=== PATIENT | male | born 1940 | race Caucasian/White ===

== ENCOUNTER 2016-08-31 23:26 | Inpatient (IN) | payer OTHER, MEDICARE ==
[~2016-08-31] VITALS: Ht 177.8 cm; Wt 81.6 kg
[~2016-08-31 23:26] MED LIST: APRESOLINE50 MG PO; AUGMENTIN 875 M1 TAB PO; CHILDREN'S ASPI81 M1 PO; CLEOCIN HCL300 M1 PO; COLACE100 M1 PO; CRESTOR40 M2 PO; DESYREL50 MG PO; FOLIC ACID0.8 M2 PO; HYDROXYZINE PAM25 MG PO; NAMENDA XR21 M1 PO; PERDIEM15 MG PO; PROZAC10 M1 PO; RENAL CAPS SOFTG1 MG PO; ROZEREM8 MG PO; TYLENOL EXTRA500 M2 PO; VITAMIN D31000 UNI2 PO; ZYPREXA2.5 MG PO
--- NOTE | 2016-08-31 23:41 | NUR ---
76yo MALE TO RM 2 VIA AMB FROM HOME WHERE FAMILY REPORTS DECREASED LOC TONITE. UPON ARRIVAL EYES CLOSED,NO SPEECH. FAMILY STATES "NON-PRODUCTIVE COUGH PRESENT"
--- NOTE | 2016-08-31 23:41 | NUR ---
2ND IV INSERTED. NS UP WO DR LAM AT BEDSIDE.
--- NOTE | 2016-08-31 23:47 | ED AMS/SEIZURE/WEAK/DIZZY ---
History of Present Illness General Chief Complaint: Altered Mental Status Stated Complaint: BIBA AMS Source: patient, family, old records Exam Limitations: clinical condition, dementia Vital Signs & Intake/Output Vital Signs & Intake/Output Vital Signs Date Time Temp Pulse Resp B/P Pulse O2 O2 Flow FiO2 Ox Delivery Rate 09/01 0127 97.9 72 20 168/77 97 Nasal 4.0L Cannula 09/01 0005 97.1 64 16 117/63 97 Nasal 2.0L Cannula 08/31 2353 64 16 82/40 98 Nasal 2.0L Cannula 08/31 2344 91 Room Air 08/31 2335 97.6 67 16 86/53 91 Room Air Room Air Allergies Coded Allergies: lisinopril (Severe, LIP/TONGUE SWELLING 02/18/16) Reconcile Medications Acetaminophen (Tylenol Xstr) 500 MG TAB 1 TAB PO BID PAIN (Reported) Aspirin (Children's Aspirin) 81 MG TAB.CHEW 1 TAB PO DAILY HEART (Reported) B COMPLEX & C NO.20/FOLIC ACID (Renal Caps Softgel) 1 MG CAPSULE 1 CAP PO DAILY VITAMIN (Reported) Cholecalciferol (Vitamin D3) 1,000 UNIT TABLET 1 TAB PO DAILY VITAMIN ( Reported) Clindamycin HCl (Cleocin HCl) 300 MG CAPSULE 1 CAP PO TID GUM BLEEDING Docusate Sodium (Colace) 100 MG CAPSULE 1 TAB PO DAILY STOOL (Reported) Fluoxetine HCl (Prozac) 10 MG CAPSULE 1 CAP PO QAM MENTAL HEALTH (Reported) Folic Acid 0.8 MG TAB 1 TAB PO DAILY VITAMIN (Reported) Memantine HCl (Namenda XR) 21 MG CAP.SPR.24 1 TAB PO DAILY MENTAL HEALTH ( Reported) Rosuvastatin Calcium (Crestor) 20 MG TABLET 40 MG PO DAILY CHOL (Reported) Trazodone Hydrochloride (Desyrel) 50 MG TAB 25 MG PO Q8 AGITATION Core Measure Meds Pre-Hospital aspirin Triage Note: 76yo MALE TO RM 2 VIA AMB FROM HOME WHERE FAMILY REPORTS DECREASED LOC TONITE. UPON ARRIVAL EYES CLOSED,NO SPEECH. FAMILY STATES "NON-PRODUCTIVE COUGH PRESENT" Triage Nurses Notes Reviewed? yes Onset: Just prior to arrival Duration: hour(s):, constant, continues in ED Timing: recent history Injury Environment: home Severity: severe No Modifying Factors: none HPI: Several hours prior to admission patient was noted to have decreasing level of consciousness interaction appetite. There is no fever chills nausea vomiting diarrhea abdominal pain chest pain shortness of breath headache dysuria rash bleeding reported. Past History Travel History Traveled to [place] past 21 day No Medical History Any Pertinent Medical History? 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 No Review of Systems Review of Systems Constitutional: Reports: see HPI, weakness. EENTM: Reports: no symptoms. Respiratory: Reports: no symptoms. Cardiovascular: Reports: no symptoms. GI: Reports: no symptoms. Genitourinary: Reports: no symptoms. Musculoskeletal: Reports: no symptoms. Skin: Reports: no symptoms. Neurological/Psychological: Reports: see HPI, weakness. Hematologic/Endocrine: Reports: no symptoms. Immunologic/Allergic: Reports: no symptoms. All Other Systems: Reviewed and Negative Physical Exam Physical Exam General Appearance: well developed/nourished, moderate distress, obese Head: atraumatic, normal appearance Eyes: Bilateral: normal appearance, PERRL, EOMI. 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 Skin: intact, normal color, warm/dry Lymphatic: no anterior cervical shukri Core Measures ACS in differential dx? Yes ASA ordered for poss ACS? taken SLINGER SEQUINS CVA/TIA Diagnosis: No Severe Sepsis Present: Yes BC x2: Yes Septic Shock Present: No Progress Differential Diagnosis: dehydration, electrolyte imbalance, hypoglycemia, hypoxia, pneumonia, sepsis Plan of Care: Orders Procedure Date/time Status Regular Diet 09/01 B Active LACTIC ACID 09/01 0238 Active Patient Data 09/01 012 Active Intake & Output 09/01 012 Active OXYGEN SETUP (GEN) 09/01 50 Active Saline Lock 09/01 50 Active Admit to inpatient 09/01 50 Active Vital Signs 09/01 50 Active Activity/Ambulation 09/01 50 Active Code Status 09/01 50 Active BLOOD CULTURE 08/31 2337 Active URINALYSIS 08/31 2337 Complete TROPONIN LEVEL 08/31 2337 Complete LACTIC ACID 08/31 2337 Complete COMPREHENSIVE METABOLIC PANEL 08/31 2337 Complete CBC WITHOUT DIFFERENTIAL 08/31 2337 Complete EKG 08/31 2332 Active Laboratory Tests 09/01/16 0020: Urinalysis LIGHT H, Urine Color YEL, Urine Clarity CLEAR, Urine pH 6.0, Ur Specific [place] 1.025, Urine Protein 30 H, Urine Ketones NEG, Urine Nitrite NEG, Urine Bilirubin NEG, Urine Urobilinogen 0.2, Ur Leukocyte Esterase NEG, Ur Microscopic SEDIMENT EXAMINED, Urine RBC RARE, Urine WBC 1-3 H, Urine Bacteria FEW H, Urine Hemoglobin NEG, Urine Glucose NEG 08/31/16 2340: Anion Gap 14, Estimated GFR 59 L, BUN/Creatinine Ratio 20.8, Glucose 142 H, Lactic Acid 2.1, Calcium 9.7, Total Bilirubin 0.5, AST 18, ALT 26, Alkaline Phosphatase 78, Troponin I < 0.01, Total Protein 6.9, Albumin 3.6, Globulin 3.3, Albumin/Globulin Ratio 1.1, CBC w Diff NO MAN DIFF REQ, RBC 4.57 L, MCV 83.1, MCH 26.4 L, RDW 14.5, MPV 8.7, Gran % 67.9, Lymphocytes % 17.4 L, Monocytes % 10.8 H, Eosinophils % 3.4, Basophils % 0.5, Absolute Granulocytes 7.4 H, Absolute Lymphocytes 1.9, Absolute Monocytes 1.2 H, Absolute Eosinophils 0.4, Absolute Basophils 0.1, PUBS MCHC 31.8 L Microbiology 08/310 BLOOD: Blood Culture - RECD 09/01 2339 BLOOD: Blood Culture - RECD Diagnostic Imaging: Viewed by Me: Radiology Read. Discussed w/RAD: Radiology Read. CXR Impression: Right lung volume loss with superior retraction of the right hilum, similar to prior. Increased right upper lung opacity. While this could represent pneumonia, malignancy is not excluded. Initial ED EKG: normal axis, normal intervals, normal p-waves, normal QRS complex, normal sinus rhythm, no ST T wave changes Prior EKG: unchanged Rhythm Strip: normal sinus rhythm Departure Departure Disposition: STILL A PATIENT Condition: Stable Clinical Impression Primary Impression: Pneumonia Qualifiers: Pneumonia type: due to unspecified organism Laterality: right Lung location: upper lobe of lung Qualified Code: J18.1 - Lobar pneumonia, unspecified organism Secondary Impressions: Dehydration syndrome Referrals: MATHEUS FELIX MD (PCP/Family) Departure Forms: Customer Survey General Discharge Information Admission Note Spoke With: ZEKE THOMPSON MD Documentation of Exam: Documentation of any treatments & extenuating circumstances including Concerns Regarding Discharge (functional status, medication knowledge or non-compliance, living conditions, etc.) that warrant an admission rather than observation: IV antibiotics supplemental oxygen serial lab exam follow cultures medication adjustment continuing care discharge planning
[2016-08-31 23:57] LABS: ABSOLUTE BASOPHIL COUNT 0.1 /CUMM (0.0-0.2); ABSOLUTE EOSINOPHIL COUNT 0.4 /CUMM (0.0-0.7); ABSOLUTE GRANULOCYTE CT 7.4 /CUMM (1.4-6.5); ABSOLUTE LYMPH COUNT 1.9 /CUMM (1.2-3.4); ABSOLUTE MONOCYTE COUNT 1.2 /CUMM (0.10-0.60); BASOPHIL % 0.5 % (0.0-2.0); EOSINOPHIL % 3.4 % (0-5); GRANULOCYTE % 67.9 % (42.2-75.2); MEAN CORPUSCULAR HGB 26.4 PG (27.0-31.0); MEAN CORPUSCULAR HGB CONC 31.8 G/DL (33.0-37.0); MEAN CORPUSCULAR VOLUME 83.1 FL (80.0-94.0); MEAN PLATELET VOLUME 8.7 FL (7.4-10.4); PLATELET COUNT 309 /CUMM (130-400); RBC DISTRIBUTION WIDTH 14.5 % (11.5-14.5); RED BLOOD CELL CT 4.57 /CUMM (4.70-6.10); WHITE BLOOD CELL COUNT 10.9 /CUMM (4.8-10.8)
--- NOTE | 2016-09-01 00:20 | NUR ---
CATH UA OBTAINED --350ML 3 TUBES TO LAB
--- NOTE | 2016-09-01 00:26 | RADIOLOGY REPORT ---
EXAMINATION: XR PORTABLE CHEST CLINICAL INFORMATION: Cough. Weakness. COMPARISON: Multiple priors, most recently chest radiograph from 08/22/2014. TECHNIQUE: Portable AP view of the chest was obtained. FINDINGS: Median sternotomy wires appear intact. Cardiac leads overlie the chest. Low lung volumes. There is redemonstration of a right upper lung opacity. There is increased density at the right apex when compared to the prior study. Superior retraction of the hilum. No pleural effusion. No pneumothorax. The left lung is clear. The cardiomediastinal silhouette is unchanged. IMPRESSION: Right lung volume loss with superior retraction of the right hilum, similar to prior. Increased right upper lung opacity. While this could represent pneumonia, malignancy is not excluded. Short-term follow-up recommended. This could also be further evaluated by CT.
--- NOTE | 2016-09-01 00:31 | NUR ---
CRITICAL TEST RESULTS [id number] MILEY BLANTON 76 M TESTS AND RESULTS: LACTIC ACID = 2.1 Results received and read back by: VIOLA SHERIFF Results received date and time: 09/01/16 0031 The following provider was notified of the results, and read the results back: DR LAM Notified date and time: 09/01/16 at 0030
--- NOTE | 2016-09-01 01:00 | NUR ---
O2 SAT DECREASING TO 88-89 ON 2L 02 INCREASED TO 4L AT THIS TIME
--- NOTE | 2016-09-01 01:20 | NUR ---
MED LIST COMPLETED W/HELP OF PT'S DAUGHTER. 02 SAT ON 4L = 97-98
--- NOTE | 2016-09-01 02:11 | NUR ---
PT BED ASSIGNMENT 224-02
--- NOTE | 2016-09-01 02:21 | NUR ---
HOUSE STAFF HERE TO [facility] SPEAKING WITH FAMILY
--- NOTE | 2016-09-01 02:28 | NUR ---
REPORT CALLED TO SARBA RAMIREZ PT TO GO TO 224-1 BUT SABRA REPORTS "THERE IS NO BED IN THE RM YET"
--- NOTE | 2016-09-01 02:38 | History & Physical ---
ANTHONY HOWELL,JULIANE 09/01/16 0237: General Information and HPI MD Statement: I have seen and personally examined JARED BLANTON and documented this H&P. The patient is a 76 year old M who presented with a patient stated chief complaint of [altered mental status]. Source of Information: family, old records Exam Limitations: unable to give history, not alert/orientated, dementia History of Present Illness: This is a 76-year-old male with past medical history of CK D stage III, dementia , diverticulitis, carotid disease status post CABG, COPD on 2 L O2, history of small cell lung cancer status post radiation, hypertension, GERD, nephrolithiasis status post percutaneous nephrostomy, AAA, who was brought in by ambulance by daughter. Patient is asleep and difficult to arouse. All the history is obtained from daughter and son-in-law at bedside. Daughter stated around 9:30 PM on 08/31/2016 she noted that her father was significantly altered from baseline. When further questioned she stated that he was not " behaving like himself." It is difficult to ascertain what changes she noted, but sounds like he was more lethargic than his baseline. He did seem to have some mild coughing the past 2-3 days with some coryza. Daughter denies any fever and states that his appetite, bladder and bowel movements were at baseline. Denies any shortness of breath or chest pain. Of note, a second daughter at home was recently diagnosed with pneumonia and serves as a sick contact. Patient is apparently up-to-date with flu and pneumonia shot. Of note, it does not seem that patient uses home O2 any longer. Allergies/Medications Allergies: Coded Allergies: lisinopril (Severe, LIP/TONGUE SWELLING 02/18/16) Home Med list Acetaminophen (Tylenol Xstr) 500 MG TAB 1 TAB PO BID PAIN (Reported) Aspirin (Children's Aspirin) 81 MG TAB.CHEW 1 TAB PO DAILY HEART (Reported) B COMPLEX & C NO.20/FOLIC ACID (Renal Caps Softgel) 1 MG CAPSULE 1 CAP PO DAILY VITAMIN (Reported) Cholecalciferol (Vitamin D3) 1,000 UNIT TABLET 1 TAB PO DAILY VITAMIN ( Reported) Clindamycin HCl (Cleocin HCl) 300 MG CAPSULE 1 CAP PO TID GUM BLEEDING Docusate Sodium (Colace) 100 MG CAPSULE 1 TAB PO DAILY STOOL (Reported) Fluoxetine HCl (Prozac) 10 MG CAPSULE 1 CAP PO QAM MENTAL HEALTH (Reported) Folic Acid 0.8 MG TAB 1 TAB PO DAILY VITAMIN (Reported) Memantine HCl (Namenda XR) 21 MG CAP.SPR.24 1 TAB PO DAILY MENTAL HEALTH ( Reported) Rosuvastatin Calcium (Crestor) 20 MG TABLET 40 MG PO DAILY CHOL (Reported) Trazodone Hydrochloride (Desyrel) 50 MG TAB 25 MG PO Q8 AGITATION Compliance With Home Meds: UNKNOWN Past History Travel History Traveled to [place] past 21 day No Medical History 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), dementia EENT: NONE Cardiovascular: aortic aneurysm, CAD ( s/p CABG), hypertension, hyperlipidemia, PVD, carotid disease Respiratory: COPD ( - on 2L of O2), stage 3 nonsmall cell lung cancer s/p radiation Gastrointestinal: GERD, peptic ulcer disease Hepatic: NONE Renal: chronic kidney disease, nephrolithiasis Musculoskeletal: NONE Psychiatric: NONE Endocrine: NONE Blood Disorders: NONE Cancer(s): lung cancer [employer]/Reproductive: NONE History of MRSA: No History of VRE: No History of CDIFF: No Influenza Vaccine: 03/18/16 Surgical History Surgical History: non-contributory Past Family/Social History Family History Relations & Conditions if any MOTHER FH: emphysema Psychosocial History Services at Home: Nursing Smoking Status: Former Smoker ETOH Use: denies use Living Will? no Functional Ability ADLs Needs Assist: dressing, eating, toileting, bathing. IADLs Needs Assist: shopping, housework, finances, food prep, telephone, transportation, medication admin. Review of Systems Review of Systems Constitutional: Reports: no symptoms. Exam & Diagnostic Data Last 24 Hrs of Vital Signs/I&O Vital Signs Date Time Temp Pulse Resp B/P Pulse O2 O2 Flow FiO2 Ox Delivery Rate 09/01 0245 96.0 71 20 127/62 98 Nasal 4.0L Cannula 09/01 0127 97.9 72 20 168/77 97 Nasal 4.0L Cannula 09/01 0005 97.1 64 16 117/63 97 Nasal 2.0L Cannula 08/31 2353 64 16 82/40 98 Nasal 2.0L Cannula 08/31 2344 91 Room Air 08/31 2335 97.6 67 16 86/53 91 Room Air Room Air Intake & Output 09/01 0800 09/01 0000 08/31 1600 Intake Total 1200 Output Total 350 Balance 850 Intake, IV 1200 Output, Urine 350 Physical Exam General Appearance pt asleep; difficult to rouse except to sternal rub Skin No Significant Lesion HEENT Atraumatic, PERRLA, EOMI Neck Supple Cardiovascular Regular Rate, Normal S1, Normal S2 Lungs slight wheeze appreciated but difficult to move patinet as he was asleep Abdomen Soft, No Tenderness Last 24 Hrs of Labs/Alan: Laboratory Tests 09/01/16 0315: pH 7.31 L, pCO2 46 H, pO2 132 H, HCO3 23, ABG O2 Sat (Measured) 98.0, P-50 ( Temp Corrected) Y, Carboxyhemoglobin 0.5 L, O2 Concentration % 4 LPM, Temperature 96.0 L, O2 Delivery Method N/C, Phlebotomy Draw Site RIGHT RADIAL 09/01/16 0240: Lactic Acid 0.5 L 09/01/16 0020: Urinalysis LIGHT H, Urine Color YEL, Urine Clarity CLEAR, Urine pH 6.0, Ur Specific [place] 1.025, Urine Protein 30 H, Urine Ketones NEG, Urine Nitrite NEG, Urine Bilirubin NEG, Urine Urobilinogen 0.2, Ur Leukocyte Esterase NEG, Ur Microscopic SEDIMENT EXAMINED, Urine RBC RARE, Urine WBC 1-3 H, Urine Bacteria FEW H, Urine Hemoglobin NEG, Urine Glucose NEG 08/31/16 2340: Anion Gap 14, Estimated GFR 59 L, BUN/Creatinine Ratio 20.8, Glucose 142 H, Lactic Acid 2.1, Calcium 9.7, Total Bilirubin 0.5, AST 18, ALT 26, Alkaline Phosphatase 78, Troponin I < 0.01, Total Protein 6.9, Albumin 3.6, Globulin 3.3, Albumin/Globulin Ratio 1.1, CBC w Diff NO MAN DIFF REQ, RBC 4.57 L, MCV 83.1, MCH 26.4 L, RDW 14.5, MPV 8.7, Gran % 67.9, Lymphocytes % 17.4 L, Monocytes % 10.8 H, Eosinophils % 3.4, Basophils % 0.5, Absolute Granulocytes 7.4 H, Absolute Lymphocytes 1.9, Absolute Monocytes 1.2 H, Absolute Eosinophils 0.4, Absolute Basophils 0.1, PUBS MCHC 31.8 L Microbiology 08/31 2350 BLOOD: Blood Culture - RECD 03/16 2340 BLOOD: Blood Culture - RECD Assessment/Plan Assessment: This is a 76-year-old male with past medical history significant for CK D stage III, dementia, diverticulitis, carotid disease status post CABG, COPD on 2 L O2, history of small cell lung cancer status post radiation, hypertension, GERD, nephrolithiasis status post percutaneous nephrostomy, AAA, who presents with chief complaint of altered mental status. ED work up showed infiltrate on CXR. ED workup showed: Temperature 96.0, pulse 71, respiration 20, blood pressure initially 86/53, pulse ox 91. ABG: PH 7.31, PCO2 46, O2 132, bicarbonate 23 Negative lactic acid, UA shows 1-3 white blood cell few bacteria, negative leukocyte esterase and nitrite CBC showed white count 10.9, hemoglobin 12.1, hematocrit 38, platelet 309. X line BEP shows sodium 144, potassium 4.4, chloride 104, CO2 25, BUN 25, creatinine 1.2. Gap 14. CXR IMPRESSION: Right lung volume loss with superior retraction of the right hilum, similar to prior. Increased right upper lung opacity. While this could represent pneumonia, malignancy is not excluded. Short-term follow-up recommended. This could also be further evaluated by CT. PLAN 1. Pneumonia: His chest x-ray patient shows increased right upper lung opacity in area of previous lung cancer. Note that patient never went surgery but only chemotherapy and radiation of lung ca. At this time, cannot rule out malignancy +/- post-obstructive pneumonia vs CAP. Given patient's cardiac history he was not started on azithromycin instead given doxycycline and ceftriaxone. * Continue doxycycline and ceftriaxone * Gently hydrate * ABG * Lactic acid * consider pulm consult * ct chest with IV contrast * Blood cx 2. Altered mental status: Patient seems to be somnolent and difficult to arouse during admission interview. At this time is not clear whether it's because he is heavily asleep or underlying cause. However daughter states that he was not his baseline at home. ABG shows mild respiratory acidosis. Possible that underlying infection is causing change in mental status. We will continue to treat infection and monitor for improvement in mental status. * Neuro check * notify oncology 3. Dementia: Chronic and stable * Continue trazodone * Continue Namenda * Continue Prozac 4. Hyperlipidemia: Chronic and stable * Continue Lipitor 5. CAD: Note the patient is not on any cardioprotective drugs such as beta larry etc. * Continue aspirin DNR/DNI Regular diet Chemical DVT prophylaxis As Ranked By This Provider Problem List: 1. Mental status change 2. Pneumonia Qualifiers Pneumonia type: due to unspecified organism Laterality: right Lung location: upper lobe of lung Qualified Code: J18.1 - Lobar pneumonia, unspecified organism Core Measures/Miscellaneous Acute Coronary Syndrome ACS Diagnosis: No Cerebrovascular Accident CVA/TIA Diagnosis: No Congestive Heart Failure CHF Diagnosis: No Venous Thromboembolism VTE Risk Factors: Acute medical illness, Age > 40, Cancer/chemo/oth therapy No Mech VTE prophylaxis d/t: No contraindications No VTE Pharm Prophylaxis d/t: No contraindications VTE Diagnosis: No VTE Type: NONE VTE Confirmed by (Test): NONE Severe Sepsis Severe Sepsis Present: Yes BC x2: Yes Septic Shock Septic Shock Present: No Miscellaneous Documentation Attending Case Discussed With: ZEKE THOMPSON MD Primary Care Physician: MATHEUS FELIX MD Patient sees these Specialists UNKNOWN Level of Patient Care: General Medicine ELVIA SANCHEZ MD 09/01/16 0316: Resident Review Statement Resident Statement: examined this patient, discussed with tax intern, agreed with tax intern, discussed with family, reviewed EMR data (avail), discussed with nursing , discussed with case mgmt, reviewed images, amended to note Other Findings: Jared is a 76-year-old man with a medical history of coronary artery disease status post CABG, peripheral vascular disease, carotid disease, hypertension, dyslipidemia, COPD on 2 L of oxygen, dementia, stage III non-small cell lung cancer status post chemotherapy and radiation, GERD PUD, CKD, nephrolithiasis who presents with 1 day of altered mental status, increasing lethargy nonproductive cough rhinorrhea subjective chills, but afebrile at home, decreased by mouth intake and appetite. Patient is demented and unable to work for meaningful history. Daughter and son-in-law in the room and her caretakers. The daughter is power of trade mark attorney. She is providing collateral history. Apparently, her sister has been sick with pneumonia requiring hospitalization, and has had contact his photo editor with the patient. Call did receive a flu shot up-to-date in terms of pneumonia vaccination. At present, he appears lethargic and very somnolent, responsive to tactile stimuli, somewhat arousable. Temperature is 97.9F, initial blood pressure was 86/53, and after 2 L of normal saline boluses is 160/77. Heart rate 72, oxygen saturation is 97% on 4 L (2 L above baseline). Pupils equally round and reactive to light. Cannot participate with neurological examination, pulses are strong, limited physical examination/auscultation due to somnolence and snoring. No lower extremity edema. Despite the lack of fever, given the constellation of sx and acuity of this patient's symptoms as well as a right upper lobe opacity and modest elevation in the white count suspect pneumonia, and recent sick contact who had pneumonia requiring hospitalization, makes pneumonia a concern. QSOFA score 2. - Problems - Community-acquired pneumonia Coronary artery disease COPD Dementia CKD - Plan - Ceftriaxone 1 g every 24 hours IV Doxycycline 100 mg IV every 12 hours (avoiding macrolides - QT prolonging) Await blood cultures, urine antigens for strep pneumoniae and Legionella Obtain ABG Follow up Lactic Acid CT Chest w/ iv contrast Consider pulmonary consultation Notify Oncology; (Dr. Landry) NS @75/cc Continue aspirin, Namenda, trazodone, statin, folate, docusate DVT prophylaxis heparin DNR/DNI ZEKE THOMPSON 09/01/16 0642: Attending MD Review Statement Attending Statement Attending MD Statement: examined this patient, discuss w/resident/PA/LOT ASSOCIATE, agreed w/resident/PA/LOT ASSOCIATE, reviewed EMR data (avail), reviewed images, amended to note Attending Assessment/Plan: cc: Confusion pmh: CAD S/P CABG, PVD, carotid stenosis, COPD on 2 L NC, history of non-small cell lung cancer S/P chemotherapy and radiation, HTN, HLD, GERD, PUD, COPD, nephrolithiasis, AAA. Patient is unable to provide any history secondary to dementia family provides limited history. Patient appears to be more confused, lethargic, cough, URI symptoms and cold. Decrease by mouth intake and appetite. His daughter is sick with pneumonia. Vitals: Afebrile, blood pressure 86/53 at presentation improved with hydration up to 168/77, saturating 97% on 4 L. For examination patient not cooperative, coarse respiratory sounds, mucosa dry, abdomen soft, CVS exam unremarkable. Labs: WBC 10.9, creatinine 1.2, lactate 2.1 trended down to 0.5, BMP LFT troponin unremarkable, UA negative. AB.31/46/132/23 on 4 L. CXR:Right lung volume loss with superior retraction of the right hilum, similar to prior. Increased right upper lung opacity. While this could represent pneumonia, malignancy is not excluded. Short-term follow-up recommended. This could also be further evaluated by CT. A and P #1 metabolic encephalopathy: Probably secondary to infection or volume contraction, AP she was obtained shows mild CO2 retention, this can be chronic but pHs mildly decreased, repeat ABG in 4 hour, check ammonia, check urine culture, blood culture. U tox if not done. #2 right upper lobe opacity: Suspicion for pneumonia but history non-small cell lung cancer, family outpatient are unable to provide details about the follow-up , treatment. In this setting, obtain CT chest with IV contrast. Mass versus pneumonia, versus postobstructive pneumonia. Patient does have some leukocytosis , hypotensive at presentation, lactic acidosis, sick contact in this scenario would continue treating with ceftriaxone and doxycycline for community-acquired pneumonia. Continue IV fluids, sputum culture if possible. Informed Dr. Wood about patient being here, patient is known to him. #3 continue rest of his home medications, DVT prophylaxis #4 DNR DNI
[2016-09-01 06:40] VITALS: BP 112/68
--- NOTE | 2016-09-01 06:43 | Admission Certification ---
Admission Certification Certification Statement - As attending physician, I certify that at the time of - admission, based on clinical presentation, severity of - symptoms, need for further diagnostic testing and - therapeutic interventions, and risk of adverse outcomes - without in-hospital treatment, in my clinical assessment, - this patient requires an acute hospital stay for a minimum - of two nights or longer. I have also considered psychsocial - factors such as support system, advanced age, financial - issues, cognitive issues, and failed out-patient treatments, - past re-admission history, safety of patient, and lack of - compliance as applicable. Specific rationale supporting this admission is: Encephalopathy, suspected pneumonia
--- NOTE | 2016-09-01 07:40 | PN- Housestaff ---
MAY HOWELL,JEREMY 09/01/16 0740: Subjective Follow-up For: Pneumonia Complaints: pt unable to provide hx Subjective: Patient is comfortably lying in bed. Unable to provide any history due to dementia. On surface questionable spine noDing his head. Denies any chest pain , shortness of breath, cough, abdominal pain, nausea, vomiting. Review of Systems Constitutional: Reports: see HPI. Objective Last 24 Hrs of Vital Signs/I&O Vital Signs Date Time Temp Pulse Resp B/P Pulse O2 O2 Flow FiO2 Ox Delivery Rate 09/01 0640 97.9 72 18 112/68 95 Nasal Cannula 09/01 0348 Nasal 2.0L Cannula 09/01 0245 96.0 71 20 127/62 98 Nasal 4.0L Cannula 09/01 0127 97.9 72 20 168/77 97 Nasal 4.0L Cannula 09/01 0005 97.1 64 16 117/63 97 Nasal 2.0L Cannula 08/31 2353 64 16 82/40 98 Nasal 2.0L Cannula 08/31 2344 91 Room Air 08/31 2335 97.6 67 16 86/53 91 Room Air Room Air Intake & Output 09/01 1600 09/01 0800 09/01 0000 Intake Total 1275 Output Total 350 Balance 925 Intake, IV 1275 Output, Urine 350 Patient 180 lb Weight Physical Exam General Appearance: Alert, unable to assess orientation as patient is sleepy Lungs: Clear to Auscultation, Normal Air Movement Abdomen: Normal Bowel Sounds, Soft, No Tenderness Neurological: Normal Speech, Normal Tone, Sensation Intact Extremities: No Edema Vascular: Normal Pulses, Pulses Symmetrical Current Medications: Current Medications Sig/Edgardo Start time Last Medication Dose Route Stop Time Status Admin Acetaminophen 1,000 MG Q6P PRN 09/01 0245 AC IV Aspirin 81 MG DAILY 09/01 1000 AC PO Atorvastatin Calcium 80 MG 1700 09/01 1700 AC PO Ceftriaxone Sodium 1,000 MG DAILY 09/01 1000 AC IV Ceftriaxone Sodium 0 .STK-MED ONE 09/01 0111 DC .ROUTE Ceftriaxone Sodium 1,000 MG ONCE ONE 09/01 0100 DC 09/01 IV 09/01 010 0115 Docusate Sodium 100 MG DAILY 09/01 1000 AC PO Doxycycline Hyclate 100 MG Q12 09/01 1000 AC Sodium Chloride 100 ML IV Doxycycline Hyclate 100 MG ONCE ONE 09/01 0100 DC 09/01 Sodium Chloride 100 ML IV 09/01 0205 0120 Enoxaparin Sodium 40 MG DAILY 09/01 1000 CAN SC Fluoxetine HCl 10 MG QAM 09/01 1000 AC PO Folic Acid 1 MG DAILY 09/01 1000 AC PO Heparin Sodium 5,000 UNIT Q8 09/01 0600 AC 09/01 (Porcine) SC 0636 Memantine 10 MG BID 09/01 1000 AC PO Sodium Chloride 1,000 ML Q13H 09/01 0315 AC 09/01 IV 0636 Sodium Chloride 1,000 ML BOLUS ONE 08/31 2345 DC 08/31 IV 09/01 0044 2340 Sodium Chloride 1,000 ML BOLUS ONE 08/31 2345 DC 08/31 IV 09/01 0044 2340 Trazodone HCl 25 MG TID 09/01 1000 AC PO Last 24 Hrs of Lab/Alan Results Last 24 Hrs of Labs/Mics: Laboratory Tests 09/01/16 0745: Sodium Pending, Potassium Pending, Chloride Pending, Carbon Dioxide Pending, Anion Gap Pending, BUN Pending, Creatinine Pending, BUN/Creatinine Ratio Pending , Ammonia Pending, CBC w Diff Pending, WBC Pending, RBC Pending, Hgb Pending, Hct Pending, MCV Pending, MCH Pending, RDW Pending, Plt Count Pending, MPV Pending, PUBS MCHC Pending 09/01/16 0315: pH 7.31 L, pCO2 46 H, pO2 132 H, HCO3 23, ABG O2 Sat (Measured) 98.0, P-50 ( Temp Corrected) Y, Carboxyhemoglobin 0.5 L, O2 Concentration % 4 LPM, Temperature 96.0 L, O2 Delivery Method N/C, Phlebotomy Draw Site RIGHT RADIAL 09/01/16 0240: Lactic Acid 0.5 L 09/01/16 0020: Urinalysis LIGHT H, Urine Color YEL, Urine Clarity CLEAR, Urine pH 6.0, Ur Specific [place] 1.025, Urine Protein 30 H, Urine Ketones NEG, Urine Nitrite NEG, Urine Bilirubin NEG, Urine Urobilinogen 0.2, Ur Leukocyte Esterase NEG, Ur Microscopic SEDIMENT EXAMINED, Urine RBC RARE, Urine WBC 1-3 H, Urine Bacteria FEW H, Urine Hemoglobin NEG, Urine Glucose NEG 08/31/16 2340: Anion Gap 14, Estimated GFR 59 L, BUN/Creatinine Ratio 20.8, Glucose 142 H, Lactic Acid 2.1, Calcium 9.7, Total Bilirubin 0.5, AST 18, ALT 26, Alkaline Phosphatase 78, Troponin I < 0.01, Total Protein 6.9, Albumin 3.6, Globulin 3.3, Albumin/Globulin Ratio 1.1, CBC w Diff NO MAN DIFF REQ, RBC 4.57 L, MCV 83.1, MCH 26.4 L, RDW 14.5, MPV 8.7, Gran % 67.9, Lymphocytes % 17.4 L, Monocytes % 10.8 H, Eosinophils % 3.4, Basophils % 0.5, Absolute Granulocytes 7.4 H, Absolute Lymphocytes 1.9, Absolute Monocytes 1.2 H, Absolute Eosinophils 0.4, Absolute Basophils 0.1, PUBS MCHC 31.8 L Microbiology 09/02 19 URINE ROUT: Legionella Antigen - COMP 09/02 19 URINE ROUT: Streptococcus pneumoniae Antigen (M - COMP 08/310 BLOOD: Blood Culture - RECD 09/01 2339 BLOOD: Blood Culture - RECD Assessment/Plan Assessment: This is a 76-year-old male with past medical history significant for CK D stage III, dementia, diverticulitis, carotid disease status post CABG, COPD on 2 L O2, history of small cell lung cancer status post radiation, hypertension, GERD, nephrolithiasis status post percutaneous nephrostomy, AAA, who presents with chief complaint of altered mental status and lethargy. ED work up showed infiltrate on CXR, mild leukocytosis and mild respiratory acidosis. 1. Community-acquired pneumonia - Patient had significant change in mental status found to have mild leukocytosis with mild respiratory acidosis and chest x-ray revealed new right upper lobe infiltrate at the site of previous lung cancer suspicious for pneumonia vs. new lung mass - Continue antibiotic with IV doxycycline and ceftriaxone - We'll consider pulmonary consult - Continue [facility] treatment - Urine strep and Legionella antigen noted negative - Follow-up blood and urine culture - Continue IV fluid hydration - will get CT chest to further evaluate rt. lung opacity: pneumonia vs. malignancy 2. Metabolic encephalopathy - Likely in setting of pneumonia - Morning labs are pending - We'll avoid any delirium triggers including benzos, pain, constipation 3. History of dementia Continue home dose Namenda 4. Hx of non-small cell lung cancer - patient had chemo and rediation in 2009 and refused surgical removal at that time - hasnt followed up with oncology in past few years. - was seen by Kiet Cummings for the same in the past - oncology service notified by [facility] team 5. Mood disorder -Continue trazodone and Prozac 6. Hyperlipidemia continue statin 7. History of CAD status post CABG Continue aspirin 8. DVT prophylaxis subcutaneous heparin 8. CODE STATUS DNR/DNI Problem List: 1. Pneumonia 2. CAD (coronary artery disease) 3. HLD (hyperlipidemia) 4. Depression 5. Altered mental status Pain Ratin (UNABLE TO ASSESS) Pain Location: None Pain Goal: Pain 4 or less Pain Plan: Tylenol Tomorrow's Labs & Rationales: CBC LAURA HOWELL,JAZMÍN 09/01/16 1648: Attending MD Review Statement Attending Statement Attending MD Statement: discuss w/resident/PA/MERCHANDISER RETAIL REPRESENTATIVE, agreed w/resident/PA/MERCHANDISER RETAIL REPRESENTATIVE, reviewed EMR data (avail), discussed with nursing Attending Assessment/Plan: Patient seen and examined. Plan of care discussed with the medical team and the patient. Available lab work and radiology test reports were reviewed. Patient confused and difficult to obtain history from him. He also appears sleepy and does not open eyes. There are history and exam is limited. Labs were reviewed. The chest x-ray findings were noted. Assessment * Right upper lobe malignancy * Possible right upper lobe obstructive pneumonia * Advanced dementia * Possible acute delirium * Elevated WBC count improved * Dehydration with improvement and BUN * Hyperglycemia Plan * Continue antibiotic at this point * Continue TRC nebulizer treatment and oxygen * Continue to monitor mental status closely * Obtain a CT chest to further characterize the right upper lobe density * Obtain no record especially chest CT scans elsewhere * Continue IV fluids and by mouth intake is poor
[2016-09-01] MEDS ORDERED: TRAZODONE HCL50 M1 PO (07:47)
[2016-09-01 08:48] LABS: ABSOLUTE BASOPHIL COUNT 0 /CUMM (0.0-0.2); ABSOLUTE EOSINOPHIL COUNT 0.3 /CUMM (0.0-0.7); ABSOLUTE GRANULOCYTE CT 4.9 /CUMM (1.4-6.5); ABSOLUTE LYMPH COUNT 1.7 /CUMM (1.2-3.4); ABSOLUTE MONOCYTE COUNT 0.9 /CUMM (0.10-0.60); BASOPHIL % 0.3 % (0.0-2.0); EOSINOPHIL % 4.2 % (0-5); GRANULOCYTE % 62.8 % (42.2-75.2); HEMATOCRIT 36.4 % (42-52); MEAN CORPUSCULAR HGB 26.5 PG (27.0-31.0); MEAN CORPUSCULAR HGB CONC 31.8 G/DL (33.0-37.0); MEAN CORPUSCULAR VOLUME 83.4 FL (80.0-94.0); MEAN PLATELET VOLUME 8.8 FL (7.4-10.4); PLATELET COUNT 255 /CUMM (130-400); RBC DISTRIBUTION WIDTH 14.3 % (11.5-14.5); RED BLOOD CELL CT 4.36 /CUMM (4.70-6.10); WHITE BLOOD CELL COUNT 7.8 /CUMM (4.8-10.8)
--- NOTE | 2016-09-01 14:42 | NUR ---
CALLED DR. JEREMY MOORE REGARDING HOLDING HEPARIN FOR POSSSIBLE INTRACRANIL BLEED PENDING HEAD CT. PER DR. MOORE TO HOLD HEPARIN DOSE AT THIS TIME UNITL FURHTER NOTICE.
[2016-09-01 14:43] VITALS: BP 138/70
--- NOTE | 2016-09-01 15:44 | Event Note ---
Event Note Event Note: I was called by nurse due to concern of patient being unresponsive. On evaluation patient's vitals were stable with T 97, HR 7063, RR 18, BP 138/70, O2 sat 96% on room air. Patient noted very drowsy and not responding to verbal commands and minimally responsive to painful stimulus. Patient's daughter was at bedside. As per my talk with patient's POA daily patient has been drowsy for past few days. On insistence by patient's daughter patient follow verbal command. No focal neuro deficit noted but patient noted having rigidity in upper extremity and noted urinary incontinence. Due to patient's history of partially treated non-small cell lung cancer, there is a concern that patient might have any metastatic disease to his brain which can predispose him to intracranial bleed. We'll do stat CT head without contrast to rule out any intracranial bleed and at the same time we'll get CT chest with IV contrast to evaluate for right upper lobe opacity for question of pneumonia versus malignancy. Attending, nose and nursing explosive operator supervisor notified about the plan.
--- NOTE | 2016-09-01 17:30 | CT SCAN REPORT ---
EXAMINATION: CT HEAD WITHOUT AND WITH CONTRAST CLINICAL INFORMATION: Altered mental status. Unresponsiveness. COMPARISON: August 22, 2014. TECHNIQUE: Contiguous helical images of the brain were obtained prior to and following the administration of IV contrast. Multiplanar reconstructions were performed. CONTRAST: 100 cc of Omnipaque 300 were administered without incident. FINDINGS: There are no pathologic extra-axial fluid collections. The lateral, third, fourth ventricles are nondilated and concordant with the appearance of the sulci. There is no evidence for acute intraparenchymal hemorrhage or infarct. There is neither mass nor mass effect. No enhancing lesions are identified. The visualized vasculature is unremarkable. There is no shift of midline structures. The paranasal sinuses and mastoid air cells are clear. There are no osseous lesions. IMPRESSION: No evidence for acute intracranial injury.
--- NOTE | 2016-09-01 18:07 | CT SCAN REPORT ---
EXAMINATION: CT CHEST WITH CONTRAST CLINICAL INFORMATION: Right upper lobe pneumonia versus malignancy versus radiation-induced changes. COMPARISON: Chest x-ray 09/01/2016, 08/22/2014. PET/CT exam 06/06/2011. TECHNIQUE: Multidetector volumetric CT imaging of the chest was obtained after the administration of 94 mL of Optiray 320 intravenous contrast without immediate adverse reactions. Axial MIP volume rendering provided. Sagittal and coronal reformatted images were obtained. DLP: 675.08 mGy-cm FINDINGS: LUNGS: There is volume loss and consolidation of the right upper lobe. This appears to be chronic with mild further retraction and fibrosis of upper lobe. There is still air bronchograms extending through this soft tissue density. The overall appearance, however, has not substantially changed since the PET/CT exam of 06/06/2011. There is a lenticular-shaped area of low attenuation at the posterior portion of this density that is likely small loculated fluid collection with density measurement of 25 Hounsfield units. This measures approximately 4 x 2 x 3 cm, axial image 19 (2), sagittal image 74 (601). The remainder of right lung remains clear with no new lesion. Left lung is clear. MEDIASTINUM: Status post median sternotomy. Vascular calcification of coronary arteries and thoracic aorta and at the origin of great vessels. No aneurysm or dissection of the aorta. PLEURA: There is no pleural effusion. No pleural mass or thickening. AXILLA: No lymphadenopathy. UPPER ABDOMEN: Renal cortical cyst upper pole right kidney measuring 4.9 cm. OSSEOUS STRUCTURES: Status post median sternotomy. Multilevel degenerative change of dorsal spine with disc height narrowing and endplate spurs. 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 A PET CT could be considered for further evaluation.
[2016-09-01 21:45] VITALS: BP 120/90
[2016-09-02 08:10] VITALS: BP 130/90
--- NOTE | 2016-09-02 09:47 | PN- Housestaff ---
Subjective Follow-up For: Pneumonia Complaints: no complaints Subjective: Patient seen and examined, Hx. he was able to answer question by nodding his head. He agrees to take his oral medications. He denies any chest pain, SOB. denies any complaint. His vitals stable He refused to be examined. Review of Systems Constitutional: Reports: see HPI. Objective Last 24 Hrs of Vital Signs/I&O Vital Signs Date Time Temp Pulse Resp B/P Pulse O2 O2 Flow FiO2 Ox Delivery Rate 09/02 0810 97.9 68 20 130/90 98 Nasal 2.0L Cannula 09/02 0000 98 Nasal 2.0L Cannula 09/01 2220 97 Nasal 2.0L Cannula 09/01 2145 97.5 71 24 120/90 98 Nasal 2.0L Cannula 09/01 1600 94 Nasal 2.0L Cannula 09/01 1443 97.0 63 18 138/70 96 Room Air 09/01 1100 Nasal 2.0L Cannula Physical Exam General Appearance: Alert, No Acute Distress Current Medications: Current Medications Sig/Edgardo Start time Last Medication Dose Route Stop Time Status Admin Acetaminophen 1,000 MG Q6P PRN 09/01 0245 AC IV Albuterol Sulfate 3 ML Q 3-4 HRS PRN PRN 09/01 1115 AC INH Aspirin 81 MG DAILY 09/01 1000 AC PO Atorvastatin Calcium 80 MG 1700 09/01 1700 AC 09/01 PO 2146 Ceftriaxone Sodium 1,000 MG DAILY 09/01 1000 AC 09/02 IV 1003 Dextrose/Sodium 1,000 ML Q20H 09/01 1600 AC 09/02 Chloride IV 1004 Docusate Sodium 100 MG DAILY 09/01 1000 AC PO Doxycycline Hyclate 100 MG Q12 09/01 1000 AC 09/02 Sodium Chloride 100 ML IV 1003 Fluoxetine HCl 10 MG QAM 09/01 1000 AC PO Folic Acid 1 MG DAILY 09/01 1000 AC PO Heparin Sodium 5,000 UNIT Q8 09/01 0600 AC 09/02 (Porcine) SC 0625 Memantine 10 MG BID 09/01 1000 AC 09/01 PO 2139 Sodium Chloride 1,000 ML Q13H 09/01 0315 DC 09/01 IV 1534 Trazodone HCl 25 MG TID 09/01 1000 AC 09/01 PO 2139 Last 24 Hrs of Lab/Alan Results Last 24 Hrs of Labs/Mics: Microbiology 09/01 1145 NASOPHARYN: Influenza Virus A & B Rapid Smear - COMP Assessment/Plan Assessment: This is a 76-year-old male with past medical history significant for CK D stage III, dementia, diverticulitis, carotid disease status post CABG, COPD on 2 L O2, history of small cell lung cancer status post radiation, hypertension, GERD, nephrolithiasis status post percutaneous nephrostomy, AAA, who presents with chief complaint of altered mental status and lethargy. ED work up showed infiltrate on CXR, mild leukocytosis and mild respiratory acidosis. 1. Community-acquired pneumonia - Vitals stable, blood work shows no leukocytosis, he is responding well to antibiotic. - Continue antibiotic with IV doxycycline and ceftriaxone - Continue TRC treatment - Urine strep and Legionella antigen noted negative - Follow-up blood culture - Continue IV fluid hydration - CT-Chest: 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 A PET CT could be considered for further evaluation. 2. Metabolic encephalopathy - Likely in setting of pneumonia - am labs improving, no electrolyte abnormalities, ammonia<9 - We'll avoid any delirium triggers including benzos, pain, constipation 3. History of dementia Continue home dose Namenda 4. Hx of non-small cell lung cancer - patient had chemo and rediation in 2009 and refused surgical removal at that time - hasnt followed up with oncology in past few years. - was seen by Kiet Cummings for the same in the past - oncology service notified by adnitting team 5. Mood disorder -Continue trazodone and Prozac 6. Hyperlipidemia continue statin 7. History of CAD status post CABG Continue aspirin 8. DVT prophylaxis subcutaneous heparin 8. CODE STATUS DNR/DNI Problem List: 1. Pneumonia Pain Ratin Pain Location: - Pain Goal: Remain pain free Pain Plan: Tylenol Tomorrow's Labs & Rationales: cbc DVT/Prophylaxis: pharmacological
--- NOTE | 2016-09-02 10:31 | NUR ---
1030- PT DIFFICULT TO AWAKE AT TIMES. DOES NOT RESPOND TO QUESTIONS AT TIMES. DR. SANCHEZ IN TO ASSESS AND IS AWARE. DR. MCHUGH IN IN TO ASSESS AND AWARE WELL. PER DR. MCHUGH, HOLD TRAZADONE. PT ABLE TO SWALLOW MEDS WITH WATER WHEN AWAKE.
--- NOTE | 2016-09-02 11:14 | PN- Att Addend ---
Attending Addendum Attending Brief Note Attending MD Statement: discuss w/resident/PA/PHYSICIAN OFFICE CLIN ASST, agreed w/resident/PA/PHYSICIAN OFFICE CLIN ASST, reviewed EMR data (avail), discussed with nursing Attending Assessment/Plan: Patient seen and examined. Plan of care discussed with the medical team and the patient. Available lab work and radiology test reports were reviewed. Patient confused and difficult to obtain history from him. He also appears sleepy and does not open eyes. Therefore history and exam is limited. No new labs were available today. The chest x-ray findings from admission were noted. Assessment * Right upper lobe malignancy * Possible right upper lobe obstructive pneumonia * Advanced dementia * Possible acute delirium * Elevated WBC count improved * Dehydration with improvement and BUN * Hyperglycemia Plan * Continue antibiotic at this point * Continue TRC nebulizer treatment and oxygen; taper oxygen as tolerated * Continue to monitor mental status closely * Obtain a CT chest to further characterize the right upper lobe density * Obtain no record especially chest CT scans elsewhere * Continue IV fluids and by mouth intake is poor * Patient remains somnolent we may want to decrease his trazodone to twice a day.
[2016-09-02 14:09] VITALS: BP 144/82
[2016-09-02 22:16] VITALS: BP 146/80
[2016-09-03 06:51] VITALS: BP 148/80
[2016-09-03 08:08] LABS: ABSOLUTE BASOPHIL COUNT 0 /CUMM (0.0-0.2); ABSOLUTE EOSINOPHIL COUNT 0.4 /CUMM (0.0-0.7); ABSOLUTE GRANULOCYTE CT 5.2 /CUMM (1.4-6.5); ABSOLUTE MONOCYTE COUNT 0.9 /CUMM (0.10-0.60); BASOPHIL % 0.5 % (0.0-2.0); GRANULOCYTE % 60.9 % (42.2-75.2); MEAN CORPUSCULAR HGB 26.6 PG (27.0-31.0); MEAN CORPUSCULAR HGB CONC 32.1 G/DL (33.0-37.0); MEAN CORPUSCULAR VOLUME 82.9 FL (80.0-94.0); MEAN PLATELET VOLUME 8.7 FL (7.4-10.4); PLATELET COUNT 273 /CUMM (130-400); RBC DISTRIBUTION WIDTH 14.2 % (11.5-14.5); RED BLOOD CELL CT 4.23 /CUMM (4.70-6.10); WHITE BLOOD CELL COUNT 8.6 /CUMM (4.8-10.8)
--- NOTE | 2016-09-03 08:29 | PN- Housestaff ---
Subjective Follow-up For: Community-acquired pneumonia Subjective: Patient was seen and examined this morning, he seems better since admission, he continued to be on oxygen 2 L with saturation 98%, patient reported a sporadic cough. Patient denied fever, chills. Patient reported right eye erythema and yellowish discharg. No overnight events reported by the nurse. Review of Systems Constitutional: Reports: see HPI. Objective Last 24 Hrs of Vital Signs/I&O Vital Signs Date Time Temp Pulse Resp B/P Pulse O2 O2 Flow FiO2 Ox Delivery Rate 09/03 1405 97.6 81 20 110/90 98 Nasal 2.0L Cannula 09/03 0923 97 Nasal 2.0L Cannula 09/03 0800 Nasal 2.0L Cannula 09/03 0651 98.1 69 20 148/80 98 Nasal Cannula 09/02 2304 96 Nasal 2.0L Cannula 09/02 2216 98.6 80 20 146/80 96 Intake & Output 09/03 1600 09/03 0800 09/03 0000 Intake Total 1200 570 690 Output Total 1200 Balance 0 570 690 Intake, IV 600 450 450 Intake, Oral 600 120 240 Output, Urine 1200 Physical Exam General Appearance: Alert, Cooperative, No Acute Distress Skin: No Rashes, No Breakdown, No Significant Lesion HEENT: Atraumatic, PERRLA, EOMI, Mucous Membr. moist/pink, right eye, red sclera , yellowish discharge around the eye Neck: Supple Cardiovascular: Regular Rate, Normal S1, Normal S2, No Murmurs Lungs: Clear to Auscultation, Normal Air Movement Abdomen: Normal Bowel Sounds, Soft, No Tenderness Neurological: Normal Speech, Strength at 5/5 X4 Ext, Normal Tone, Sensation Intact, Cranial Nerves 3-12 NL, Reflexes 2+ Extremities: No Clubbing, No Cyanosis, No Edema, Normal Pulses Assessment/Plan Assessment: This is a 76-year-old male with past medical history significant for CK D stage III, dementia, diverticulitis, carotid disease status post CABG, COPD on 2 L O2, history of small cell lung cancer status post radiation, hypertension, GERD, nephrolithiasis status post percutaneous nephrostomy, AAA, who presents with chief complaint of altered mental status and lethargy. ED work up showed infiltrate on CXR, mild leukocytosis and mild respiratory acidosis. 1. Community-acquired pneumonia - Patient remained afebrile, no leukocytosis - Switch antibiotic to doxycycline by mouth 100 twice a day for 5 days - Continue TRC treatment - Urine strep and Legionella antigen noted negative - Follow-up blood culture negative so far - Patient is eating and drinking well, normal BUN/creatinine, will DC IV fluid -Patient is not on home oxygen, start titrate oxygen as tolerated, keep saturation more than 92% 2. Metabolic encephalopathy - Likely in setting of pneumonia - Patient alert today, respond properly to questions - Avoid any delirium triggers including benzos, pain, constipation 3. History of dementia - Continue home dose Namenda 4. Hx of non-small cell lung cancer - patient had chemo and rediation in 2009 and refused surgical removal at that time - hasnt followed up with oncology in past few years. - was seen by Kiet Cummings for the same in the past - oncology service notified by admitting team 5. Mood disorder -Continue trazodone and Prozac 6. Hyperlipidemia -Continue statin 7. History of CAD status post CABG -Continue aspirin 8. Right eye infection -Start erythromycin eyedrops 4 times a day DVT prophylaxis subcutaneous heparin CODE STATUS DNR/DNI Will obtain PT evaluation Problem List: 1. Community acquired pneumonia Pain Ratin Pain Location: None Pain Goal: Pain 4 or less Pain Plan: Mild pain pathway Tomorrow's Labs & Rationales: None
--- NOTE | 2016-09-03 12:08 | PN- Att Addend ---
Attending Addendum Attending Brief Note Attending MD Statement: discuss w/resident/PA/STATUARY PAINTER, agreed w/resident/PA/STATUARY PAINTER, reviewed EMR data (avail), discussed with nursing Attending Assessment/Plan: Patient seen and examined. Plan of care discussed with the medical team and the patient. Available lab work and radiology test reports were reviewed. Patient confused and difficult to obtain history from him. He appears more awake and alert this morning and able to respond to questions. He is disoriented. Vital Signs Date Time Temp Pulse Resp B/P Pulse O2 O2 Flow FiO2 Ox Delivery Rate 09/03 0923 97 Nasal 2.0L Cannula 09/03 0651 98.1 69 20 148/80 98 Nasal Cannula 09/02 2304 96 Nasal 2.0L Cannula 09/02 2216 98.6 80 20 146/80 96 09/02 1409 98.4 62 20 144/82 98 Nasal 2.0L Cannula 09/02 1406 97 Nasal 2.0L Cannula Intake & Output 09/03 1600 09/03 0800 09/03 0000 Intake Total 570 690 Output Total Balance 570 690 Intake, IV 450 450 Intake, Oral 120 240 Exam: General: Patient awake alert but disoriented without any distress CVS: S1 plus S2 without any murmur or gallops Chest: Few scattered crepitation without any wheeze. There is no respiratory distress. Abdomen: Soft nontender, bowel sound present, no guarding or rebound KENNEL MANAGER: Awake alert disoriented without any focal neuro deficit and follows command appropriately Extremities: No edema; no clubbing or cyanosis noted Laboratory Tests 09/03 0650 Chemistry Sodium (137 - 145 mmol/L) 142 Potassium (3.5 - 5.1 mmol/L) 4.4 Chloride (98 - 107 mmol/L) 103 Carbon Dioxide (22 - 30 mmol/L) 32 H Anion Gap (5 - 16) 6 BUN (9 - 20 mg/dL) 17 Creatinine (0.7 - 1.2 mg/dL) 1.1 Estimated GFR (>60 ml/min) > 60 BUN/Creatinine Ratio (7 - 25 %) 15.5 Hematology CBC w Diff NO MAN DIFF REQ WBC (4.8 - 10.8 /CUMM) 8.6 RBC (4.70 - 6.10 /CUMM) 4.23 L Hgb (14.0 - 18.0 G/DL) 11.3 L Hct (42 - 52 %) 35.0 L MCV (80.0 - 94.0 FL) 82.9 MCH (27.0 - 31.0 PG) 26.6 L RDW (11.5 - 14.5 %) 14.2 Plt Count (130 - 400 /CUMM) 273 MPV (7.4 - 10.4 FL) 8.7 Gran % (42.2 - 75.2 %) 60.9 Lymphocytes % (20.5 - 51.1 %) 23.1 Monocytes % (1.7 - 9.3 %) 10.5 H Eosinophils % (0 - 5 %) 5.0 Basophils % (0.0 - 2.0 %) 0.5 Absolute Granulocytes (1.4 - 6.5 /CUMM) 5.2 Absolute Lymphocytes (1.2 - 3.4 /CUMM) 2.0 Absolute Monocytes (0.10 - 0.60 /CUMM) 0.9 H Absolute Eosinophils (0.0 - 0.7 /CUMM) 0.4 Absolute Basophils (0.0 - 0.2 /CUMM) 0 PUBS MCHC (33.0 - 37.0 G/DL) 32.[address] chest 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 A PET CT could be considered for further evaluation. Assessment * Right upper lobe malignancy * Possible right upper lobe obstructive pneumonia- CT scan only showed fibrotic changes * Advanced dementia * Possible acute delirium * Elevated WBC count improved * Dehydration with improvement and BUN * Hyperglycemia Plan * Change antibiotic to oral doxycycline 100 mg twice a day for 5 days * Continue TRC nebulizer treatment and oxygen; taper oxygen as tolerated * Continue to monitor mental status closely
[2016-09-03 14:05] VITALS: BP 110/90
--- NOTE | 2016-09-03 17:38 | NUR ---
1400- PT NOTED TO HAVE R EYE REDNESS, IRRITATION WITH WHITE DRAINAGE NOTED. DR. GALINDO HOOPER NOTIFIED AND TO ASSESS AT BEDSIDE.
[2016-09-03 21:35] VITALS: BP 140/80
--- NOTE | 2016-09-03 23:00 | NUR ---
ALERT AND ORIENTED X 2. 1 L NC, EXP. WHEEZES THROUGHOUT. REDNESS TO RIGHT EYE, ERYTHROMYCIN ORDERED. PO ABT IN PROGRESS. NO C/O PAIN. WILL CONTINUE TO MONITOR.
[2016-09-04 06:42] VITALS: BP 136/80
--- NOTE | 2016-09-04 07:45 | PN- Housestaff ---
MAY HOWELL,JEREMY 09/04/16 0744: Subjective Follow-up For: Right upper lobe non-small cell cancer Presumed post obstructive pneumonia Complaints: no complaints Subjective: Patient is comfortably lying in bed denies any shortness of breath, chest pain, palpitation, nausea vomiting, abdominal pain or urinary symptoms. His oxygen requirement improved currently on room air. Remains afebrile. Able to walk to the bathroom without any difficulty. Patient is eager to go home. Review of Systems Constitutional: Reports: see HPI. Objective Last 24 Hrs of Vital Signs/I&O Vital Signs Date Time Temp Pulse Resp B/P Pulse O2 O2 Flow FiO2 Ox Delivery Rate 09/04 0642 98.1 70 20 136/80 96 Nasal 2.0L Cannula 09/04 0000 Nasal 1.0L Cannula 09/03 2135 98.3 71 20 140/80 96 09/03 2007 96 Nasal 2.0L Cannula 09/03 1405 97.6 81 20 110/90 98 Nasal 2.0L Cannula Intake & Output 09/04 1600 09/04 0800 09/04 0000 Intake Total 360 240 Output Total 750 500 Balance -390 -260 Intake, Oral 360 240 Output, Urine 750 500 Physical Exam General Appearance: Alert, Oriented X3, Cooperative, No Acute Distress Skin: No Rashes HEENT: Atraumatic, PERRLA, EOMI, Mucous Membr. moist/pink Neck: Supple, No JVD Lymphatic: Cervical nl Cardiovascular: Regular Rate, Normal S1, Normal S2, No Murmurs Lungs: Clear to Auscultation, Normal Air Movement Abdomen: Normal Bowel Sounds, Soft, No Tenderness Neurological: Normal Speech, Normal Tone, Sensation Intact Extremities: No Edema, Normal Pulses Vascular: Normal Pulses, Pulses Symmetrical Current Medications: Current Medications Sig/Edgardo Start time Last Medication Dose Route Stop Time Status Admin Acetaminophen 1,000 MG Q6P PRN 09/01 0245 AC IV Albuterol Sulfate 3 ML Q 3-4 HRS PRN PRN 09/01 1115 AC INH Aspirin 81 MG DAILY 09/01 1000 AC 09/03 PO 1110 Atorvastatin Calcium 80 MG 1700 09/01 1700 AC 09/03 PO 1830 Bisacodyl 10 MG ONCE ONE 09/04 1000 DC NC 09/04 1001 Ceftriaxone Sodium 1,000 MG DAILY 09/01 1000 DC 09/03 IV 1109 Dextrose/Sodium 1,000 ML Q20H 09/01 1600 DC 09/03 Chloride IV 0652 Docusate Sodium 100 MG DAILY 09/01 1000 AC 09/03 PO 1110 Doxycycline Hyclate 100 MG BID 09/03 2200 AC 09/03 PO 210 Doxycycline Hyclate 100 MG Q12 09/01 1000 DC 09/03 Sodium Chloride 100 ML IV 1110 Erythromycin 1 PRANEETH 4 TIMES/DAY 09/03 1800 AC 09/03 OPH 2146 Fluoxetine HCl 10 MG QAM 09/01 1000 AC 09/03 PO 1110 Folic Acid 1 MG DAILY 09/01 1000 AC 09/03 PO 1111 Heparin Sodium 5,000 UNIT Q8 09/01 0600 AC 09/04 (Porcine) SC 0531 Memantine 10 MG BID 09/01 1000 AC 09/03 PO 210 Trazodone HCl 25 MG BID 09/020 AC 09/03 PO 210 Last 24 Hrs of Lab/Alan Results Last 24 Hrs of Labs/Mics: none Assessment/Plan Assessment: This is a 76-year-old male with past medical history significant for CK D stage III, dementia, diverticulitis, carotid disease status post CABG, COPD on 2 L O2, history of small cell lung cancer status post radiation, hypertension, GERD, nephrolithiasis status post percutaneous nephrostomy, AAA, who presents with chief complaint of altered mental status and lethargy. ED work up showed infiltrate on CXR, mild leukocytosis and mild respiratory acidosis. 1. Presumed post obstructive right upper lobe pneumonia - Patient remained afebrile, leukocytosis resolved - Continue antibiotic doxycycline by mouth 100 twice a day for 5 days - Continue TRC treatment - Urine strep and Legionella antigen noted negative - Follow-up blood culture negative so far - Patient is eating and drinking well 2. Metabolic encephalopathy - Likely in setting of pneumonia - Patient alert and oriented today, respond properly to questions - Avoid any delirium triggers including benzos, pain, constipation 3. History of dementia - Continue home dose Namenda 4. Hx of non-small cell lung cancer - patient had chemo and rediation in 2009 and refused surgical removal at that time - hasnt followed up with oncology in past few years. - was seen by Dr. Santa for the same in the past - oncology service notified by admitting team 5. Mood disorder -Continue trazodone and Prozac 6. Hyperlipidemia -Continue statin 7. History of CAD status post CABG -Continue aspirin 8. Right eye dryness -Start erythromycin eyedrops 4 times a day DVT prophylaxis subcutaneous heparin CODE STATUS DNR/DNI obtained PT evaluation, recommended home PT Problem List: 1. Pneumonia 2. Mental status change Pain Ratin Pain Location: none Pain Goal: Pain 4 or less Pain Plan: tylenol Tomorrow's Labs & Rationales: none Discharge Plan Discharge Disposition: home Stable for Discharge? Yes Anticipated Discharge (Day): today PORFIRIO PERRIN MDROSAFIDELINA 09/04/16 1326: Attending MD Review Statement Attending Statement Attending MD Statement: examined this patient, discuss w/resident/PA/CENTRAL OFFICE EQUIPMENT ENGINEER, agreed w/resident/PA/CENTRAL OFFICE EQUIPMENT ENGINEER, discussed with family, reviewed EMR data (avail), discussed with nursing, discussed with case mgmt, amended to note Attending Assessment/Plan: Patient seen and examined. Lying comfortably in bed. Not in any respiratory distress. Patient was very sandhu occasionally refusing to talk. I did speak with his daughter who states that this is baseline for the patient due to his dementia. He offered no complaints. Denied chest pain. Denies shortness of breath. On examination he has fair entry bilaterally with no added sounds. He is afebrile and hemodynamically stable. He is not requiring oxygen supplementation. He was treated empirically for pneumonia based on abnormal chest x-ray. Chest CT however shows volume loss on the constellation of the right upper lobe which appears to be chronic with further retraction and fibrosis of the upper lobe. Patient did have leukocytosis on admission but this has resolved. He has been afebrile. We'll continue antibiotic therapy as recommended by the primary team to complete 5 days of therapy. I did speak with the daughter. He has been discharged from the oncology service.
--- NOTE | 2016-09-04 10:23 | Patient Discharge Instructions ---
Discharge Instructions General Discharge Information You were seen/treated for: Post obstructive pneumonia Metabolic encephalopathy (change in mental status) Watch for these problems: Shortness of breath, fever, productive cough, confusion Special Instructions: Please follow-up with primary care physician Dr. Ferguson within a week of discharge. Please follow-up with lung Doctor Dr. Santa within a week of discharge. His follow-ups with oncologist Dr. Wood within a week of discharge. Diet Recommended Diet: Heart Healthy Activity Additional ACTIVITY Info: As tolerated home physical therapy to get baseline function Acute Coronary Syndrome Inclusion Criteria At DC or during hospital stay patient has or had the following: ACS DIAGNOSIS No Discharge Core Measures Meds if any: Prescribed or Continued at Discharge Meds if any: NOT Prescribed or Continued at Discharge Congestive Heart Failure Inclusion Criteria At DC or during hospital stay patient has or had the following: CHF DIAGNOSIS No Discharge Core Measures Meds if any: Prescribed or Continued at Discharge Meds if any: NOT Prescribed or Continued at Discharge Cerebrovascular accident Inclusion Criteria At DC or during hospital stay patient has or had the following: CVA/TIA Diagnosis No Discharge Core Measures Meds if any: Prescribed or Continued at Discharge Meds if any: NOT Prescribed or Continued at Discharge Venous thromboembolism Inclusion Criteria VTE Diagnosis No VTE Type NONE VTE Confirmed by (Test) NONE Discharge Core Measures - Per Current guidelines, there needs to be overlap - treatment for the first 5 days of Warfarin therapy. - If discharged on Warfarin prior to 5 days of - overlap therapy, the patient will need to be - assessed for post discharge needs including - *Post discharge parental anticoagulation - *Warfarin and/or parental anticoagulation education - *Follow up date to check INR post discharge At least 5 days overlap therapy as Inpatient No Meds if any: Prescribed or Continued at Discharge Note: Overlap Therapy is Warfarin and Anticoagulant Meds if any: NOT Prescribed or Continued at Discharge
[2016-09-04 14:39] VITALS: BP 122/80
[2016-09-04] MEDS ORDERED: DOXYCYCLINE HY100 M2 PO (14:46)
--- NOTE | 2016-09-04 15:05 | Discharge Summary ---
Visit Information Visit Dates Admission Date: 09/01/16 Discharge Date: 09/04/16 Hospital Course Course Attending Physician: Elian Cook MD Primary Care Physician: MATHEUS FERGUSON MD Hospital Course: This is a 76-year-old male with past medical history significant for dementia, diverticulitis, CAD s/p CABG, COPD on 2 L O2, history of stage III non-small cell lung cancer status post radiation, hypertension, GERD, nephrolithiasis status post percutaneous nephrostomy, AAA, who presented with chief complaint of altered mental status and lethargy with poor oral intake and nonproductive cough , chills. ED work up showed infiltrate on CXR, mild leukocytosis and mild respiratory acidosis. On admission his vitals were T 97.9, HR 72, RR 18, BP 86/53 improved to 160/77 after 2 L and his bolus, O2 sat 97% on 4 L (at baseline uses 2 L supplemental O2 ). On exam patient noted very confused but alert HEENT PERRLA EOMI, neck supple lungs clear on auscultation, heart S1-S2 normal, abdomen soft nontender nondistended with preserved bowel sounds, no focal gross neuro deficit but patient noted significantly confused and drowsy and was not able to cooperate with full neurological exam. Labs: WBC 10.9, creatinine 1.2, lactate 2.1 trended down to 0.5, BMP LFT troponin unremarkable, UA negative. AB.31/46/132/23 on 4 L. CXR:Right lung volume loss with superior retraction of the right hilum, similar to prior. Increased right upper lung opacity. While this could represent pneumonia, malignancy is not excluded. Short-term follow-up recommended. This could also be further evaluated by CT. Patient was admitted to general medicine floor and following problems were addressed during course of hospital stay. #1 metabolic encephalopathy: Probably secondary to underlying acute infection or volume contraction. ABG she was obtained shows mild CO2 retention. Patient was treated for right upper lobe pneumonia with antibiotic and his mental status significantly improved. Ammonia level checked which noted negative. Other possible triggers of delirium avoided. CT head was done which did not reveal any signs of intracranial pathology. #2 suspected right upper lobe post obstructive pneumonia: On admission patient noted being short of breath with significant change in mental status and elevated white count with initial chest x-ray suggestive of right upper lobe opacity suspicious for community-acquired pneumonia. Patient started empirically on IV doxycycline (macrolide avoided due to prolonged QTc) and ceftriaxone. Due to persistent drowsiness and confusion and due to concern of patient's previous history of right upper lobe non-small cell lung cancer CT chest with IV contrast done which revealed persistent right upper lobe opacity likely related with fibrosis in setting of previous right upper lobe cancer but possibility of pneumonia was under differential. Due to significant clinical improvement and improvement in WBC patient was continued on oral antibiotics to complete 7 days course of antibiotics for chronic require pneumonia. Patient recommended to follow-up with his municipal court magistrate Dr. Delgado and oncologist Dr. Wood within a week of discharge for further evaluation of his right upper lobe lung cancer. Patient discharged on oral doxycycline 100 mg twice a day to complete total of 7 days course of antibiotic #3 history of dementia - Patient maintain on home dose Namenda #4 history of mood disorder patient continued on home dose trazodone and Prozac #5. History of CAD status post CABG Patient continued on home dose statin and aspirin Allergies: Coded Allergies: lisinopril (Severe, LIP/TONGUE SWELLING 02/18/16) Pertinent Lab Results: Laboratory Tests 09/03/16 0650: Anion Gap 6, Estimated GFR > 60, BUN/Creatinine Ratio 15.5, CBC w Diff NO MAN DIFF REQ, RBC 4.23 L, MCV 82.9, MCH 26.6 L, RDW 14.2, MPV 8.7, Gran % 60.9, Lymphocytes % 23.1, Monocytes % 10.5 H, Eosinophils % 5.0, Basophils % 0.5, Absolute Granulocytes 5.2, Absolute Lymphocytes 2.0, Absolute Monocytes 0.9 H, Absolute Eosinophils 0.4, Absolute Basophils 0, PUBS MCHC 32.1 L Disposition Summary Disposition Principal Diagnosis: 1. Post obstructive right upper lobe pneumonia 2. Metabolic encephalopathy 3. Right upper lobe non-small cell lung cancer Additional Diagnosis: 1. CAD status post CABG 2. Dementia 3. Mood disorder Discharge Disposition: home health services Discharge Instructions General Discharge Information Code Status: Do Not Resucitate/Intubat Patient's Diet: Heart healthy diet Patient's Activity: As tolerated continue physical therapy to regain baseline function Follow-Up Instructions/Appts: Please follow-up with primary care physician Dr. Ferguson within a week of discharge. Please follow-up with municipal court magistrate Dr. Delgado within a week of discharge. Please follow-up with oncologist Dr. Wood within a week of discharge. Medications at Discharge Discharge Medications: Stop taking the following medications: Clindamycin HCl (Cleocin HCl) 300 MG CAPSULE ORAL THREE TIMES DAILY Qty = 21 Continue taking these medications: Acetaminophen (Tylenol Extra Strength) 500 MG TABLET 1 Tablet ORAL TWICE DAILY Comments: NOT GIVEN WHILE IN HOSPITAL Aspirin (Children's Aspirin) 81 MG TAB.CHEW 1 Tablet ORAL DAILY Comments: Last Taken: 09/04/16 Time: 11AM Fluoxetine HCl (Prozac) 10 MG CAPSULE 1 Capsule ORAL Every Morning Comments: Last Taken: 09/04/16 Time: 11AM Folic Acid (Folic Acid) 0.8 MG TABLET 1 Tablet ORAL DAILY Comments: Last Taken: 09/04/16 Time: 11AM Rosuvastatin Calcium (Crestor) 40 MG TABLET 1 Tablet ORAL DAILY Comments: Last Taken: 09/03/16 Time: 6:30PM LIPITOR GIVEN SUBSTITUTION Docusate Sodium (Colace) 100 MG CAPSULE 1 Capsule ORAL DAILY Comments: Last Taken: 09/04/16 Time: 11AM B Complex & C No.20/Folic Acid (Renal Caps Softgel) 1 MG CAPSULE 1 Capsule ORAL DAILY Comments: NOT GIVEN WHILE IN HOSPITAL Cholecalciferol (Vitamin D3) 1,000 UNIT TABLET 1 Tablet ORAL DAILY Comments: NOT GIVEN WHILE IN HOSPITAL Memantine HCl (Namenda XR) 21 MG CAP.SPR.24 1 Tablet ORAL DAILY Qty = 30 Comments: Last Taken: 09/04/16 Time: 11AM Trazodone HCl (Trazodone HCl) 50 MG TABLET 0.5 Tablet ORAL EVERY 8 HOURS Comments: Last Taken: 09/04/16 Time: 11AM Start taking the following new medications: Doxycycline Hyclate (Doxycycline Hyclate) 100 MG CAPSULE 100 Milligram ORAL TWICE DAILY Qty = 7 No Refills Instructions: TAKE 1 TAB TWICE DAILY STARTING FROM 09/04/16 IN EVENING AND COMPLETE THE COURSE OF ANTIBIOTICS. Comments: Last Taken: 09/04/16 Time: 11AM Copies To: NIKA HOWELL,MATHEUS Ordonez; MIKKI HOWELL,SAMMI FERGUSON MD,MATHEUS Tubbs Attending MD Review Statement Documenting Attending: ELIAN COOK M.D
[2016-09-04] MEDS ORDERED: ERYTHROMYCIN1 GM OPH (16:35)
== END 2016-09-04 16:40 | disposition home health service (06) | DRG 190 ==
LOC: ENRESERVDT → ENRESERVTM → ERH 23:26 → 2NA 09-01 00:51 → ERHI 09-01 00:51 → 2NA 09-01 03:11
PROVIDERS: Emergency Medicine; Internal Medicine Hematology & Oncology; Student in an Organized Health Care Education/Training Program; ADMIT Internal Medicine
DX: J44.0 Chronic obstructive pulmonary disease with (acute) lower respiratory infection (principal); G93.41 Metabolic encephalopathy; J18.9 Pneumonia, unspecified organism; E87.2 Acidosis; F03.90 Unspecified dementia, unspecified severity, without behavioral disturbance, psychotic disturbance, mood disturbance, and anxiety; C34.11 Malignant neoplasm of upper lobe, right bronchus or lung; E86.0 Dehydration; Z99.81 Dependence on supplemental oxygen; I12.9 Hypertensive chronic kidney disease with stage 1 through stage 4 chronic kidney disease, or unspecified chronic kidney disease; N18.3 Chronic kidney disease, stage 3 (moderate); K21.9 Gastro-esophageal reflux disease without esophagitis; I71.4 Abdominal aortic aneurysm, without rupture; Z95.1 Presence of aortocoronary bypass graft; E78.5 Hyperlipidemia, unspecified; I25.10 Atherosclerotic heart disease of native coronary artery without angina pectoris
CPT/HCPCS: 2NASP; 81001; 82436; 87040; 87449; 87450; 87804; 87804-59; 93005; 93010; 97116-GO; 97161-GP; 99291; J0696; J1644; J3490; J7042

== ENCOUNTER 2018-01-10 16:04 | Inpatient (IN) | payer OTHER, MEDICARE ==
[~2018-01-10] VITALS: Ht 177.8 cm; Wt 77.7 kg
[~2018-01-10 16:04] MED LIST changes: +DOXYCYCLINE HY100 M2 PO; +ERYTHROMYCIN1 GM OPH; +TRAZODONE HCL50 M1 PO
[2018-01-10 19:09] LABS: ABSOLUTE BASOPHIL COUNT 0 /CUMM (0.0-0.2); ABSOLUTE EOSINOPHIL COUNT 0 /CUMM (0.0-0.7); ABSOLUTE GRANULOCYTE CT 14.4 /CUMM (1.4-6.5); BASOPHIL % 0 % (0.0-2.0); EOSINOPHIL % 0.1 % (0-5); HEMATOCRIT 31.6 % (42-52); MEAN CORPUSCULAR HGB 23.9 PG (27.0-31.0); MEAN CORPUSCULAR HGB CONC 31.4 G/DL (33.0-37.0); MEAN CORPUSCULAR VOLUME 76.2 FL (80.0-94.0); MEAN PLATELET VOLUME 8.9 FL (7.4-10.4); PLATELET COUNT 345 /CUMM (130-400); RBC DISTRIBUTION WIDTH 16.3 % (11.5-14.5); RED BLOOD CELL CT 4.15 /CUMM (4.70-6.10); WHITE BLOOD CELL COUNT 16.5 /CUMM (4.8-10.8)
--- NOTE | 2018-01-10 19:39 | ED GENERAL ADULT ---
History of Present Illness General Chief Complaint: General Adult Stated Complaint: INCREASED WEAKNESS, BACK PAIN, POOR PO INTAKE Source: patient Exam Limitations: dementia Vital Signs & Intake/Output Vital Signs & Intake/Output Vital Signs Date Time Temp Pulse Resp B/P B/P Pulse O2 O2 Flow FiO2 Mean Ox Delivery Rate 01/16 1425 98.3 101 20 84/64 96 Nasal 2.0L Cannula 01/16 0835 76 122/66 01/16 0800 Nasal 2.0L Cannula 01/16 0616 98.6 76 20 122/66 96 01/16 0000 Nasal 2.0L Cannula 01/15 2234 98.5 55 20 138/80 98 ED Intake and Output 01/16 0000 01/15 1200 Intake Total 1550 1200 Output Total 2600 1900 Balance -1050 -700 Intake, IV 1300 1200 Intake, Oral 250 Number 0 Bowel Movements Output, Urine 2600 1900 Patient 171 lb Weight Weight Bed scale Measurement Method Allergies Coded Allergies: lisinopril (Severe, LIP/TONGUE SWELLING 02/18/16) Reconcile Medications Acetaminophen (Tylenol Extra Strength) 500 MG TABLET 1 TAB PO BID PAIN ( Reported) Aspirin (Children's Aspirin) 81 MG TAB.CHEW 1 TAB PO DAILY HEART HEALTH ( Reported) Cholecalciferol (Vitamin D3) (Vitamin D) 2,000 UNIT CAPSULE 1 CAP PO DAILY SUPPLEMENT (Reported) Cyanocobalamin (Vitamin B-12) (B-12 Dots) 500 MCG TABLET 1 TAB PO DAILY SUPPLEMENT (Reported) Docusate Sodium (Colace) 100 MG CAPSULE 1 CAP PO DAILY STOOL (Reported) Fluoxetine HCl (Prozac) 10 MG CAPSULE 1 CAP PO QAM MENTAL HEALTH (Reported) Folic Acid 0.4 MG TABLET 1 TAB PO DAILY SUPPLEMENT (Reported) Memantine HCl (Namenda XR) 21 MG CAP.SPR.24 1 TAB PO DAILY MENTAL HEALTH ( Reported) Rosuvastatin Calcium (Crestor) 40 MG TABLET 1 TAB PO DAILY CHOLESTEROL ( Reported) Trazodone HCl 50 MG TABLET 1 TAB PO TID PRN agitation (Reported) Triage Note: PT BIBA FROM HOME WITH C/O BACK PAIN, INCREASED WEAKNESS, AND POOR PO INTAKE. PER EMS AND DAUGHTER, PT FELL ON SUNDAY AND HAS BEEN ALTERED SINCE THAT TIME FROM HIS BASELINE DEMENTIA. EMS REPORTS PT HYPOTENSIVE, OTHER VSS. COMBATIVE WITH CARE EN ROUTE AND ON ARRIVAL. 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 yes Onset: Abrupt Duration: day(s): Timing: recent history Injury Environment: home No Modifying Factors: none HPI: 77-year-old male comes into the emergency room for further evaluation after falling at home. Patient has a history of baseline dementia. Patient reportedly fell at home daily as ago. He has been increasingly weak complaining of back pain. History limited secondary to patient's dementia. (Doroteo Ortega) Past History Travel History Traveled to [place] past 21 day No Medical History Any Pertinent Medical History? see below for history 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), dementia EENT: NONE Cardiovascular: aortic aneurysm, CAD ( s/p CABG), hypertension, hyperlipidemia, PVD, carotid disease Respiratory: COPD ( - on 2L of O2), stage 3 nonsmall cell lung cancer s/p radiation Gastrointestinal: GERD, peptic ulcer disease Hepatic: NONE Renal: chronic kidney disease, nephrolithiasis Musculoskeletal: NONE Psychiatric: NONE Endocrine: NONE Blood Disorders: NONE Cancer(s): lung cancer EXECUTIVE PILOT/Reproductive: NONE History of MRSA: No History of VRE: No History of CDIFF: No Surgical History Surgical History: non-contributory Psychosocial History Who do you live with Daughter Services at Home Nursing What is your primary language Syrian Tobacco Use: Cognitive Impairment ETOH Use: 6 Family History Family History, If Any: MOTHER FH: emphysema Hx Contributory? No (Doroteo Ortega) Review of Systems Review of Systems Constitutional: Reports: see HPI. EENTM: Reports: no symptoms. Respiratory: Reports: no symptoms. Cardiovascular: Reports: no symptoms. GI: Reports: see HPI. Genitourinary: Reports: see HPI. Musculoskeletal: Reports: no symptoms. Skin: Reports: no symptoms. Neurological/Psychological: Reports: no symptoms. Hematologic/Endocrine: Reports: no symptoms. Immunologic/Allergic: Reports: no symptoms. All Other Systems: Reviewed and Negative (Doroteo Ortega) Physical Exam Physical Exam General Appearance: alert, awake, mild distress Head: atraumatic Eyes: Bilateral: normal appearance. Ears, Nose, Throat: hearing grossly normal Neck: limited range of motion Respiratory: no respiratory distress Gastrointestinal: soft Back: decreased range of motion Extremities: NO EDEMA Neurologic/Psych: awake, alert Skin: intact Core Measures ACS in differential dx? No CVA/TIA Diagnosis: No Sepsis Present: No Sepsis Focused Exam Completed? No (Kevin MAI,Doroteo) Progress Differential Diagnoses I considered the following diagnoses in my evaluation of the patient: Intracranial bleed, cervical fracture, lumbar fracture, UTI, pneumonia, renal failure, anemia, perfroated bowel, sepsis Plan of Care: Orders Procedure Date/time Status Regular Diet 01/16 D Active POTASSIUM 01/16 2200 Active C.DIFFICILE 01/16 1907 Active Precautions 01/16 0143 Active Nursing Misc 01/16 UNK Active Discontinue Nursing Interventi 01/16 UNK Active Current Medications Sig/Edgardo Start time Last Medication Dose Stop Time Status Admin Fluoxetine HCl 10 MG AT BEDTIME 01/15 2100 AC 01/15 (Prozac) 202 Risperidone 0.25 MG BID 01/15 1245 AC 01/16 (risperiDONE) 0833 Haloperidol 0.5 MG Q6P PRN 01/13 1015 AC (Haldol) Dextrose/Sodium 1,000 ML Q10H 01/12 1530 AC 01/16 Chloride 1318 (D5W-1/2 Normal Saline 1000ML) Tamsulosin HCl 0.4 MG DAILY 01/12 0900 AC 01/16 (Flomax) 0835 Heparin Sodium 5,000 UNIT Q8 01/11 0600 AC 01/16 (Porcine) 1349 Ceftriaxone Sodium 1,000 MG DAILY 01/11 0145 AC 01/16 (Rocephin) 0835 Metronidazole 500 MG IQ8 01/11 0030 AC 01/16 (Flagyl) 1555 N/A 1 UNIT (No Carrier) Acetaminophen 1,000 MG Q6P PRN 01/11 0015 AC 01/12 (Ofirmev) 2049 Laboratory Tests 01/16/18 0626: Anion Gap 10, Estimated GFR 45 L, BUN/Creatinine Ratio 18.0 Microbiology 01/16 190 STOOL: Clostridium difficile Toxin A & B - ORD Diagnostic Imaging: Viewed by Me: CT Scan. Discussed w/RAD: CT Scan. Radiology Impression: PATIENT: MILEY BLANTON PRESENT AGE : 77 PATIENT ACCOUNT NO: [id number] : 39 LOCATION: [facility] [place] ORDERING PHYSICIAN: Doroteo MAI SERVICE DATE: 01/10/18 EXAM TYPE: CAT - CT CERV SPINE WO IV CONTRAST; CT HEAD WO IV CONTRAST EXAM: CT scan of the head and cervical spine. INDICATION: Reason for Study:
Presumptive Dx: FALL, PAIN, AMS
Signs Symptoms: NEUMANN G
TECHNIQUE: A noncontrast CT scan was performed from the skull base to the vertex. A noncontrast CT scan of the cervical spine was performed from the base of the skull through T1 at 2.5 mm and 1.25 mm collimation. Coronal and sagittal reformats were obtained at the acquisition workstation. Dose length product is 1068 mGy-cm. COMPARISON: 2014 FINDINGS: Head: There is no evidence of acute intracranial hemorrhage or territorial infarction. Jane-white matter differentiation is preserved. No abnormal mass effect or midline shift. No extra-axial fluid collections. No abnormal attenuation is demonstrated within the brain parenchyma. Scattered periventricular and deep white matter hypodensities consistent with microangiopathy. The ventricles and sulcal spaces are proportional without hydrocephalus. Proportional prominence of the ventricles and sulcal spaces. No acute osseous or soft tissue abnormalities. The mastoid air cells and visualized portions of the paranasal sinuses are well aerated. Cervical Spine: Mild to moderate spondylosis throughout the cervical spine with mild to moderate disc space narrowing and endplate sclerosis and marginal osteophytes. Posterior elements intact. No fracture. The atlantooccipital and atlantoaxial articulations remain well aligned. No subluxation. The vertebral body heights are maintained. There is no prevertebral soft tissue swelling. The thyroid gland and remaining cervical soft tissues are normal in appearance. The lung apices demonstrate no abnormalities. IMPRESSION: No acute intracranial pathology. Spondylosis of mild to moderate severity throughout the cervical spine. No fracture. DICTATED BY: Hayden Charles MD DATE/TIME DICTATED:01/10/182143 DEVELOPMENT TECHNOLOGIST:JORGE DATE/TIME TRANSCRIBED:01/10/182143 CONFIDENTIAL, DO NOT COPY WITHOUT APPROPRIATE AUTHORIZATION. <Electronically signed in Other Vendor System> SIGNED BY: Hayden Charles MD 01/10/182151 Initial ED EKG: normal sinus rhythm, rate (84) Comments: 01/11/18 Patient was not being compliant with the CT scan. He has a history of dementia. Patient was given Ativan prior to CT scan to allow us to get the images. Patient was thrashing and punching at that time but then calmed down. Patient was admitted for acute renal failure pending CT scans of abdomen and pelvis and chest. CÉSAR BURCIAGA was going to follow-up the CT scans of abdomen and pelvis and chest at change of shift due to results not being resulted yet. No current source of infection. Low-grade fever. (Doroteo Ortega) Departure Departure Disposition: STILL A PATIENT Condition: Stable Clinical Impression Primary Impression: JACQUELINE (acute kidney injury) Secondary Impressions: Gait instability, Leukocytosis Referrals: Levar Ferguson MD (PCP/Family) Departure Forms: Customer Survey General Discharge Information Admission Note Spoke With: Elian Cook MD Documentation of Exam: Documentation of any treatments & extenuating circumstances including Concerns Regarding Discharge (functional status, medication knowledge or non-compliance, living conditions, etc.) that warrant an admission rather than observation: IV fluids. Renal consultation. Physical therapy consultation. Unsteady on feet. Unable to ambulate without assistance. Not safe for discharge. repeat labs. f/u ct scans of chest and abdomen. (Doroteo Ortega) PA/ASSISTANT DIRECTOR OF PLANT OPERATIONS Co-Sign Statement Statement: ED Attending supervision documentation- x I saw and evaluated the patient. I have also reviewed all the pertinent lab results and diagnostic results. I agree with the findings and the plan of care as documented in the PA's/ASSISTANT DIRECTOR [employer]ANT [employer]PERATIONS's documentation. Weakness, gait instability: JACQUELINE [] I have reviewed the ED Record and agree with the PA's/ASSISTANT DIRECTOR OF [employer]ANT [employer]PERATIONS's documentation. [] Additions or exceptions (if any) to the PAs/ASSISTANT DIRECTOR OF PLANT OPERATIONS's note and plan are summarized below: [] (Sanjiv Whittaker MD) Critical Care Note Critical Care Note Critical Care Time: non-applicable (Doroteo Ortega) and cervical spine. INDICATION: Reason for Study:
Presumptive Dx: FALL, PAIN, AMS
Signs Symptoms: NEUMANN G
TECHNIQUE: A noncontrast CT scan was performed from the skull base to the vertex. A noncontrast CT scan of the cervical spine was performed from the base of the skull through T1 at 2.5 mm and 1.25 mm collimation. Coronal and sagittal reformats were obtained at the acquisition workstation. Dose length product is 1068 mGy-cm. COMPARISON: 2014 FINDINGS: Head: There is no evidence of acute intracranial hemorrhage or territorial infarction. Jane-white matter differentiation is preserved. No abnormal mass effect or midline shift. No extra-axial fluid collections. No abnormal attenuation is demonstrated within the brain parenchyma. Scattered periventricular and deep white matter hypodensities consistent with microangiopathy. The ventricles and sulcal spaces are proportional without hydrocephalus. Proportional prominence of the ventricles and sulcal spaces. No acute osseous or soft tissue abnormalities. The mastoid air cells and visualized portions of the paranasal sinuses are well aerated. Cervical Spine: Mild to moderate spondylosis throughout the cervical spine with mild to moderate disc space narrowing and endplate sclerosis and marginal osteophytes. Posterior elements intact. No fracture. The atlantooccipital and atlantoaxial articulations remain well aligned. No subluxation. The vertebral body heights are maintained. There is no prevertebral soft tissue swelling. The thyroid gland and remaining cervical soft tissues are normal in appearance. The lung apices demonstrate no abnormalities. IMPRESSION: No acute intracranial pathology. Spondylosis of mild to moderate severity throughout the cervical spine. No fracture. DICTATED BY: Hayden Charles MD DATE/TIME DICTATED:01/10/182143 DEVELOPMENT TECHNOLOGIST:JORGE DATE/TIME TRANSCRIBED:01/10/182143 CONFIDENTIAL, DO NOT COPY WITHOUT APPROPRIATE AUTHORIZATION. <Electronically signed in Other Vendor System> SIGNED BY: Hayden Charles MD 01/10/182151 Initial ED EKG: normal sinus rhythm, rate (84) Comments: 01/11/18 Patient was not being compliant with the CT scan. He has a history of dementia. Patient was given Ativan prior to CT scan to allow us to get the images. Patient was thrashing and punching at that time but then calmed down. Patient was admitted for acute renal failure pending CT scans of abdomen and pelvis and chest. CÉSAR BURCIAGA was going to follow-up the CT scans of abdomen and pelvis and chest at change of shift due to results not being resulted yet. No current source of infection. Low-grade fever. Departure Departure Disposition: STILL A PATIENT Condition: Stable Clinical Impression Primary Impression: JACQUELINE (acute kidney injury) Secondary Impressions: Gait instability, Leukocytosis Referrals: Levar Ferguson MD (PCP/Family) Departure Forms: Customer Survey General Discharge Information Admission Note Spoke With: Elian Cook MD Documentation of Exam: Documentation of any treatments & extenuating circumstances including Concerns Regarding Discharge (functional status, medication knowledge or non-compliance, living conditions, etc.) that warrant an admission rather than observation: IV fluids. Renal consultation. Physical therapy consultation. Unsteady on feet. Unable to ambulate without assistance. Not safe for discharge. repeat labs. f/u ct scans of chest and abdomen. Critical Care Note Critical Care Note Critical Care Time: non-applicable
[2018-01-10 19:51] LABS: GRANULOCYTE % 87.3 % (42.2-75.2)
[2018-01-10] MEDS ORDERED: TRAZODONE HCL50 M1 PO (21:42)
[2018-01-10] MEDS ORDERED: B-12 DOTS500 MCG PO (21:43)
[2018-01-10] MEDS ORDERED: FOLIC ACID0.4 M1 PO (21:43)
[2018-01-10] MEDS ORDERED: VITAMIN D2000 UNIT PO (21:44)
--- NOTE | 2018-01-10 21:52 | CT SCAN REPORT ---
EXAM: CT scan of the head and cervical spine. INDICATION: Reason for Study:
Presumptive Dx: FALL, PAIN, AMS
Signs Symptoms: NEUMANN G
TECHNIQUE: A noncontrast CT scan was performed from the skull base to the vertex. A noncontrast CT scan of the cervical spine was performed from the base of the skull through T1 at 2.5 mm and 1.25 mm collimation. Coronal and sagittal reformats were obtained at the acquisition workstation. Dose length product is 1068 mGy-cm. COMPARISON: 08/22/2014 FINDINGS: Head: There is no evidence of acute intracranial hemorrhage or territorial infarction. Jane-white matter differentiation is preserved. No abnormal mass effect or midline shift. No extra-axial fluid collections. No abnormal attenuation is demonstrated within the brain parenchyma. Scattered periventricular and deep white matter hypodensities consistent with microangiopathy. The ventricles and sulcal spaces are proportional without hydrocephalus. Proportional prominence of the ventricles and sulcal spaces. No acute osseous or soft tissue abnormalities. The mastoid air cells and visualized portions of the paranasal sinuses are well aerated. Cervical Spine: Mild to moderate spondylosis throughout the cervical spine with mild to moderate disc space narrowing and endplate sclerosis and marginal osteophytes. Posterior elements intact. No fracture. The atlantooccipital and atlantoaxial articulations remain well aligned. No subluxation. The vertebral body heights are maintained. There is no prevertebral soft tissue swelling. The thyroid gland and remaining cervical soft tissues are normal in appearance. The lung apices demonstrate no abnormalities. IMPRESSION: No acute intracranial pathology. Spondylosis of mild to moderate severity throughout the cervical spine. No fracture.
--- NOTE | 2018-01-10 23:00 | History & Physical ---
Mina Antoine MD 01/10/18 2300: General Information and HPI History of Present Illness: 77-year-old man with past medical history of dementia, CAD status post CABG, hypertension, hyperlipidemia, PVD, aortic aneurysm, COPD on 2.0 L home O2, non- small cell lung cancer status post radiation, GERD, PUD, CAD, and nephrolithiasis seen for evaluation of fall, weakness, and back pain. Patient was previously admitted to from 09/01/16-09/04/16 for evaluation of similar complaints found to have a right upper lobe postobstructive pneumonia that was treated with doxycycline and ceftriaxone. 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 Collateral information was obtained from patients daughter whom he lives with. Patient at baseline is dependent for most of his ADLs/IADLs. He is not able to effectively communicate any complaints. He has been seen to be more tired and lethargic over the past several days. On Sunday he suffered a fall due to weakness without any resulting injury. He is incontinent of urine at baseline but has been incontinent of stool during this time; it is characterized as loose , brown, non-bloody, and foul smelling. Due to worsening mental status he was brought to the [facility] ED. Subjective complaints and review of systems are unobtainable. Objective Vitals: Temp 99.3-100.1, HR 77-82, RR 14, BP 99-116/54-74, O2 93-97% on 4.0 L Physical exam -General: ill appearing elderly man in no acute distress -HEENT: NCAT, PERRL, EOMI, anicteric sclera, dry oral mucosa -Neck: Supple, no JVD, trachea midline, no accessory respiratory muscle use -Cardio: normal S1/S2 w/o m/g/r; RRR -Pulmonary: CTA bilaterally -Abdomen: Soft, NT, ND, BS+ -Neuro: awake but not alert, confused and delerious, spontaneous movement of all four extremities -Extremities: normal pulses, no edema Labs/imaging/studies -CBC: WBC 16.5, hemoglobin 9.9, hematocrit 31.6, platelet 345 -BMP: Sodium 138, potassium 4.4, chloride 102, CO2 19, P1 89, creatinine 4.0, anion gap 17, glucose 126 -LFT: AST 263, ALT 196, ALP 129, T bili 0.4 -Miscellaneous: Troponin I 0.02, lactic 1.1 -Echocardiogram 08/24/14: LVEF >60% without regional wall motion abnormalities and stage I diastolic dysfunction -CT head/cervical spine without IV contrast: * No acute intracranial pathology. * Spondylosis of mild to moderate severity throughout the cervical spine. No fracture. -CT chest/abdomen/pelvis without IV contrast: GASTROINTESTINAL TRACT: There is marked diverticulosis of the left colon sigmoid with scattered diverticula in the right colon. There is focal bowel wall thickening and subtle pericolonic edema at the proximal sigmoid consistent with focal diverticulitis. 1. Moderate hydronephrosis of right kidney. Multiple renal and ureteral calculi. There is a 1 mm stone at the right bladder trigone at the right UVJ. 2. Diverticulosis of the colon. Focal diverticulitis of the proximal sigmoid colon. 3. No acute change of chest. Stable chronic volume loss and bronchiectasis at the right upper lobe. 4. Extensive atherosclerotic vascular calcifications. There is a subtle aneurysmal dilatation of the distal aorta at the bifurcation measuring 2.7 cm. 5. 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 Assessment 77 year old man with multiple medical problems significant for dementia seen for evaluation of weakness, confusion, and diarrhea. Patient is unable to given any complaints. Vitals are significant for temp 100.1 and otherwise stable. Physical examination is unremarkable. Significant labs including elevated WBC, creatinine, and LFTs. CT Head/C-spine is unremarkable. CT Chest / Abdomen / Pelvis demonstrates diverticulitis with moderate right sided nonobstructive hydronephrosis. In the ED patient received 2 L normal saline, and 2.5 mg Ativan. Clinically patient appears to have severe sepsis with end organ damage secondary to acute recurrent diverticulitis. He is to be admitted to the general medicine floor for intravenous fluids / antibiotics and GI consultation. Problem list -Acute diverticulitis -Altered mental status, likely toxic metabolic encephalopathy -Moderate Right Hydronephrosis without obstruction -Fecal incontinence of brown watery foul smelling stool -Severe Sepsis -Acute on chronic microcytic anemia -Acute kidney injury on chronic kidney disease, likely due to prerenal azotemia -Transaminitis -Multiple falls -Dementia -Mood disorder -CAD status post CABG -Chronic hypoxic respiratory failure, on 2.0 L O2 -History of stage III non-small cell lung cancer status post radiation -Hypertension -GERD -Nephrolithiasis status post percutaneous nephrostomy -Abdominal aortic aneurysm -History of obstructive pneumonia Plan -Admit to general medicine -Avoid nephrotoxic agents -Total respiratory care -Supplemental oxygen, goal >92%, taper as tolerated -Guaic all stools -Accuchecks Q6H while NPO -D5 NS @ 100mL/hr for Ashlyn and while NPO -Ceftriaxone 1 g IV Daily -Flagyl 500 mg IV Q8H -Hold non-essential oral meds, restart as tolerated -Hold statin due to transaminitis -Consult with GI for for recurrent diverticulitis -Follow-up cultures and sensitivities -Check C. diff toxin, stool culture -Check 1 more lactic acid, trend if abnormal -Monitor renal function, H/H, and LFTs -Pain control with acetaminophen -NPO, advance as tolerated -DVT prophylaxis with subcutaneous heparin / ALPS -DNR/DNI Allergies/Medications Allergies: Coded Allergies: lisinopril (Severe, LIP/TONGUE SWELLING 02/18/16) Home Med list Acetaminophen (Tylenol Extra Strength) 500 MG TABLET 1 TAB PO BID PAIN ( Reported) Aspirin (Children's Aspirin) 81 MG TAB.CHEW 1 TAB PO DAILY HEART HEALTH ( Reported) Cholecalciferol (Vitamin D3) (Vitamin D) 2,000 UNIT CAPSULE 1 CAP PO DAILY SUPPLEMENT (Reported) Cyanocobalamin (Vitamin B-12) (B-12 Dots) 500 MCG TABLET 1 TAB PO DAILY SUPPLEMENT (Reported) Docusate Sodium (Colace) 100 MG CAPSULE 1 CAP PO DAILY STOOL (Reported) Fluoxetine HCl (Prozac) 10 MG CAPSULE 1 CAP PO QAM MENTAL HEALTH (Reported) Folic Acid 0.4 MG TABLET 1 TAB PO DAILY SUPPLEMENT (Reported) Memantine HCl (Namenda XR) 21 MG CAP.SPR.24 1 TAB PO DAILY MENTAL HEALTH ( Reported) Rosuvastatin Calcium (Crestor) 40 MG TABLET 1 TAB PO DAILY CHOLESTEROL ( Reported) Trazodone HCl 50 MG TABLET 1 TAB PO TID PRN agitation (Reported) Past History Travel History Traveled to [place] past 21 day No Medical History 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), dementia EENT: NONE Cardiovascular: aortic aneurysm, CAD ( s/p CABG), hypertension, hyperlipidemia, PVD, carotid disease Respiratory: COPD ( - on 2L of O2), stage 3 nonsmall cell lung cancer s/p radiation Gastrointestinal: GERD, peptic ulcer disease Hepatic: NONE Renal: chronic kidney disease, nephrolithiasis Musculoskeletal: NONE Psychiatric: NONE Endocrine: NONE Blood Disorders: NONE Cancer(s): lung cancer REGISTERED APPRAISER/Reproductive: NONE History of MRSA: No History of VRE: No History of CDIFF: No Surgical History Surgical History: non-contributory Past Family/Social History Family History Relations & Conditions if any MOTHER FH: emphysema Psychosocial History Services at Home: Nursing ETOH Use: 6 Living Will? no Functional Ability ADLs Needs Assist: dressing, eating, toileting, bathing. IADLs Needs Assist: shopping, housework, finances, food prep, telephone, transportation, medication admin. Review of Systems Review of Systems Constitutional: Reports: see HPI. Exam & Diagnostic Data Last 24 Hrs of Vital Signs/I&O Vital Signs Date Time Temp Pulse Resp B/P B/P Pulse O2 O2 Flow FiO2 Mean Ox Delivery Rate 01/108 99.2 81 16 104/66 96 Room Air 01/10 2102 93 Nasal 4.0L Cannula 01/10 1944 99.3 77 14 116/74 97 Room Air 01/10 1615 100.1 82 14 99/54 96 Room Air 01/10 1611 Room Air Intake & Output 01/11 0800 01/11 0000 01/10 1600 Intake Total 2000 Output Total 700 Balance 1300 Intake, IV 2000 Output, Urine 700 Patient 81.647 kg Weight Weight Reported by Patient Measurement Method Assessment/Plan As Ranked By This Provider Problem List: 1. Diverticulitis Core Measures/Misc (03/04) Acute Coronary Syndrome ACS Diagnosis: No Congestive Heart Failure Congestive Heart Failure Diagnosis No Cerebrovascular Accident CVA/TIA Diagnosis: No VTE (View Protocol) VTE Risk Factors Age>40 No Mechanical VTE Prophylaxis d/t N/A MechProphylax Ordered No VTE Pharm Prophylaxis d/t NA PharmProphylax ordered Sepsis (View protocol) Sepsis Present: Yes If YES complete Sepsis Event Note If YES complete Sepsis Event Note Elian Cook MD 01/11/18 0052: Core Measures/Misc (03/04) Sepsis (View protocol) If YES complete Sepsis Event Note If YES complete Sepsis Event Note Attending MD Review Statement Attending Statement Attending MD Statement: examined this patient, discuss w/resident/PA/AMMUNITION ASSEMBLY II LABORER, agreed w/resident/PA/AMMUNITION ASSEMBLY II LABORER, reviewed EMR data (avail), discussed with nursing, amended to note Attending Assessment/Plan: Patient is a 69-year-old male with multiple comorbidities who was brought to the ER for evaluation due to complaints of worsening lethargy for his daughter. Apparently earlier this week he sustained a fall with no injuries. He has been having frequent loose stools. Patient is unable to provide any additional history by himself. In the Emergency room he is found to be febrile but hemodynamically stable. On physical examination abdomen is soft and nontender with normal bowel sounds. CT abdomen done during this admission showed focal diverticulitis of the proximal sigmoid colon. Moderate hydronephrosis of the right kidney. Several renal or ureteral calculi. Extensive calcifications. On exam he is resting comfortably. Does not appear to be in acute distress. Heart sounds are regular. Lungs are clear to auscultation bilaterally. Abdomen is soft, nontender with normal bowel sounds. Problems: 1. Sepsis 2. Diverticulitis 3. Transaminitis 4. Acute kidney injury; probably secondary to obstructive disease. 5. 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 Chronic hypoxic respiratory failure 7. History of lung cancer. Plan: Admit to inpatient medical service Antibiotic therapy would IV Rocephin and Flagyl. Stool for Clostridium difficile and culture GI consultation in the morning. Etiology of his transaminitis is unknown. No hepatobiliary disease noted on CT imaging. Check viral hepatitis panel. Repeat LFTs in a.m. Elevated enzymes may be secondary to his underlying infection. CT imaging shows moderate hydronephrosis of the right kidney. He has multiple renal stones. Continue IV hydration. Obtain urology consultation. Significance of the major findings of the femoral head is uncertain at present. Denies any pain. Recommend consultation with the orthopedic service.
--- NOTE | 2018-01-10 23:03 | CT SCAN REPORT ---
EXAMINATION: CT CHEST, ABDOMEN AND PELVIS WITH CONTRAST CLINICAL INFORMATION: Fall. Pain. COMPARISON: Portable chest 09/01/2016. CT abdomen pelvis 09/05/2014. PET/CT exam 06/06/2011 TECHNIQUE: Multidetector volumetric CT imaging of the chest, abdomen and pelvis was obtained without oral or intravenous contrast. Coronal and sagittal reformatted images are performed at CT scanner DLP: 863.87 mGy-cm. FINDINGS: CT CHEST: LUNGS: There is stable chronic volume loss in the right upper lobe with bronchiectasis and elevation of the right hilum. This is similar to the prior exam of 06/06/2011. MEDIASTINUM: Status post median sternotomy. There is vascular calcifications of the aorta. There is vascular calcification of coronary arteries. No mediastinal mass. No bulky lymphadenopathy. There is no pericardial effusion. PLEURA: There is no pleural effusion. No pleural mass or thickening. AXILLA: No lymphadenopathy. CT ABDOMEN AND PELVIS: LIVER, GALLBLADDER, AND BILIARY TREE: The liver is normal in size, shape, and attenuation. No focal hepatic lesion or biliary ductal dilatation is present. The gallbladder is unremarkable with no evidence of radiopaque gallstones, gallbladder wall thickening, or obvious pericholecystic inflammatory changes. PANCREAS: No acute change of the pancreas. No mass. No pancreatic duct dilatation. SPLEEN: Spleen normal in size and contour. No focal lesion. ADRENAL GLANDS: Adrenal glands are normal in size. No focal mass. KIDNEYS AND URETERS: There is moderate hydronephrosis of right kidney with distention of renal pelvis and calyces. There are multiple tiny stones layering dependently in the renal pelvis in the midpole and lower pole calyces. There are a couple tiny stones also in the proximal dilated right ureter. There is a 1 mm stone at the right bladder trigone, axial image 113 (2). The left kidney and ureter are normal. There is a pedunculated cyst at the upper pole of the right kidney measuring 5.6 cm. BLADDER: Unremarkable. GASTROINTESTINAL TRACT: There is marked diverticulosis of the left colon sigmoid with scattered diverticula in the right colon. There is focal bowel wall thickening and subtle pericolonic edema at the proximal sigmoid consistent with focal diverticulitis. Moderate amount of stool throughout the colon. The appendix is normal. The small bowel loops are normal. MESENTERY: Edema related to the diverticulitis in the mesentery in the left lower quadrant. There is no free air. ABDOMINAL WALL: No significant hernia is appreciated. LYMPH NODES: Normal. VASCULAR: There is atherosclerotic vascular wall calcifications of the aorta and iliac arteries. There is subtle aneurysmal dilatation of the distal aorta proximal to the bifurcation measuring 2.7 cm transverse. There is vascular calcification at the origin of the celiac axis, SMA and renal arteries. PELVIC VISCERA: Prostate measures 5 cm transverse. OSSEOUS STRUCTURES: No acute abnormality. No fracture. There is bony fusion of ossification of the disc at L4-L5. There is multilevel endplate degenerative spurs of the thoracic and lumbar vertebrae. There are multiple gas deposits that are scattered in the lumbar canal at the lower lumbar spine from L3 L4-L5 S1. There are gas droplets also in the paravertebral soft tissues at these disc levels. This is likely due to the degenerative change of the disc at L5-S1. Status post median sternotomy. There is subchondral sclerosis and cystic changes of the right and left femoral heads consistent with avascular necrosis. The femoral head remains spherical without fracture. IMPRESSION: 1. Moderate hydronephrosis of right kidney. Multiple renal and ureteral calculi. There is a 1 mm stone at the right bladder trigone at the right UVJ. 2. Diverticulosis of the colon. Focal diverticulitis of the proximal sigmoid colon. 3. No acute change of chest. Stable chronic volume loss and bronchiectasis at the right upper lobe. 4. Extensive atherosclerotic vascular calcifications. There is a subtle aneurysmal dilatation of the distal aorta at the bifurcation measuring 2.7 cm. 5. 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
--- NOTE | 2018-01-11 00:36 | Admission Certification ---
Admission Certification Certification Statement - As attending physician, I certify that at the time of - admission, based on clinical presentation, severity of - symptoms, need for further diagnostic testing and - therapeutic interventions, and risk of adverse outcomes - without in-hospital treatment, in my clinical assessment, - this patient requires an acute hospital stay for a minimum - of two nights or longer. I have also considered psychsocial - factors such as support system, advanced age, financial - issues, cognitive issues, and failed out-patient treatments, - past re-admission history, safety of patient, and lack of - compliance as applicable. Specific rationale supporting this admission is: Patient requires hospitalization for management of his diverticulitis.
--- NOTE | 2018-01-11 00:42 | Sepsis Event Note ---
Sepsis Event Note Severe Sepsis Severe Sepsis Present: Yes Severe Sepsis Actions Taken: Blood Cultures x2, Lactic Acid x2, IV Broad Spectrum Abx, IV Fluids- NS or LR Septic Shock Septic Shock Present: No Event Note Event Note: Situation Severe Sepsis Background 77 year old man with history of dementia and recurrent diverticulitis seen for weakness, diarrhea, and recent fall. Patient had elevated temp, leukocytosis, renal failure, and transaminitis. Assessment CT imaging demonstrated acute diverticulitis. Blood cultures x2, lactic acid x2, normal saline 30cc/kg and antibiotics started. Sepsis Focused Exam Sepsis Cardiac Exam: Regular Rate/Rhythm Sepsis Resp Exam: CTA Sepsis Cap Refill Exam: <2 Sec Sepsis Peripheral Pulse Exam: Normal Sepsis Peripheral Pulse Location: Dorsalis Pedis Sepsis Skin Exam (color): Normal for Ethnicity Skin Temp/Moisture Exam: Warm/Dry
[2018-01-11 06:02] LABS: ABSOLUTE BASOPHIL COUNT 0 /CUMM (0.0-0.2); ABSOLUTE EOSINOPHIL COUNT 0 /CUMM (0.0-0.7); ABSOLUTE GRANULOCYTE CT 15.9 /CUMM (1.4-6.5); ABSOLUTE LYMPH COUNT 1.2 /CUMM (1.2-3.4); ABSOLUTE MONOCYTE COUNT 1.2 /CUMM (0.10-0.60); BASOPHIL % 0 % (0.0-2.0); EOSINOPHIL % 0 % (0-5); GRANULOCYTE % 86.8 % (42.2-75.2); HEMATOCRIT 28.6 % (42-52); MEAN CORPUSCULAR HGB 24.1 PG (27.0-31.0); MEAN CORPUSCULAR HGB CONC 31.7 G/DL (33.0-37.0); MEAN CORPUSCULAR VOLUME 76.2 FL (80.0-94.0); MEAN PLATELET VOLUME 8.7 FL (7.4-10.4); PLATELET COUNT 313 /CUMM (130-400); RED BLOOD CELL CT 3.76 /CUMM (4.70-6.10); WHITE BLOOD CELL COUNT 18.3 /CUMM (4.8-10.8)
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
--- NOTE | 2018-01-11 12:52 | Cons- Gastroenterology ---
General Information and HPI Consulting Request Date of Consult: 01/11/18 Requested By: Ismael Monson MD Reason for Consult: Acute diverticulitis Source of Information: electronic medical record Exam Limitations: unable to give history History of Present Illness: History is obtained entirely from electronic medical record as patient is somnolent and unable to provide any medical history. Patient has underlying dementia and is nonverbal. Mr. Humphries is a 77-year-old man with a past medical history of dementia, CAD status post CABG, hypertension, hyperlipidemia, PVD, aortic aneurysm, COPD on 2.0 L home O2, non-small cell lung cancer status post radiation, GERD, PUD, CAD, and nephrolithiasis. Patient was previously admitted to [facility] from 09/01/16-09/04/16 for evaluation of similar complaints and was treated for a right upper lobe postobstructive pneumonia with doxycycline and ceftriaxone. Information in the medical record was obtained from the patients daughter whom he lives with. Patient is at baseline is dependent on his daughter for most of his ADLs/IADLs. His daughter reported that he was more lethargic over the past several days and on Sunday he suffered a fall due to weakness. He is incontinent of urine at baseline but has been incontinent of loose, foul- smelling, non-bloody stool during this time. Due to worsening mental status he was brought to the [facility]. Subjective complaints and review of systems are unobtainable. On admission patient had a white blood cell count of 16.5 with an H&H of 9.9 and 31.6 and platelets of 345,000. Today patient's white blood cell count is 18.3 with no H&H of 9.1 28.6 and 313,000 platelets. Of 2016 patient had an H&H of 12.7 and 41.0. In addition on admission patient had a BUNs and/creatinine of 86 /3.9. In May 2017 his BUN/creatinine were 34/1.4. He had a CT scan of the chest, abdomen and pelvis on admission the results of which are as follows. FINDINGS: CT CHEST: LUNGS: There is stable chronic volume loss in the right upper lobe with bronchiectasis and elevation of the right hilum. This is similar to the prior exam of 06/06/2011. MEDIASTINUM: Status post median sternotomy. There is vascular calcifications of the aorta. There is vascular calcification of coronary arteries. No mediastinal mass. No bulky lymphadenopathy. There is no pericardial effusion. PLEURA: There is no pleural effusion. No pleural mass or thickening. AXILLA: No lymphadenopathy. CT ABDOMEN AND PELVIS: LIVER, GALLBLADDER, AND BILIARY TREE: The liver is normal in size, shape, and attenuation. No focal hepatic lesion or biliary ductal dilatation is present. The gallbladder is unremarkable with no evidence of radiopaque gallstones, gallbladder wall thickening, or obvious pericholecystic inflammatory changes. PANCREAS: No acute change of the pancreas. No mass. No pancreatic duct dilatation. SPLEEN: Spleen normal in size and contour. No focal lesion. ADRENAL GLANDS: Adrenal glands are normal in size. No focal mass. KIDNEYS AND URETERS: There is moderate hydronephrosis of right kidney with distention of renal pelvis and calyces. There are multiple tiny stones layering dependently in the renal pelvis in the midpole and lower pole calyces. There are a couple tiny stones also in the proximal dilated right ureter. There is a 1 mm stone at the right bladder trigone, axial image 113 (2). The left kidney and ureter are normal. There is a pedunculated cyst at the upper pole of the right kidney measuring 5.6 cm. BLADDER: Unremarkable. GASTROINTESTINAL TRACT: There is marked diverticulosis of the left colon sigmoid with scattered diverticula in the right colon. There is focal bowel wall thickening and subtle pericolonic edema at the proximal sigmoid consistent with focal diverticulitis. Moderate amount of stool throughout the colon. The appendix is normal. The small bowel loops are normal. MESENTERY: Edema related to the diverticulitis in the mesentery in the left lower quadrant. There is no free air. ABDOMINAL WALL: No significant hernia is appreciated. LYMPH NODES: Normal. VASCULAR: There is atherosclerotic vascular wall calcifications of the aorta and iliac arteries. There is subtle aneurysmal dilatation of the distal aorta proximal to the bifurcation measuring 2.7 cm transverse. There is vascular calcification at the origin of the celiac axis, SMA and renal arteries. PELVIC VISCERA: Prostate measures 5 cm transverse. OSSEOUS STRUCTURES: No acute abnormality. No fracture. There is bony fusion of ossification of the disc at L4-L5. There is multilevel endplate degenerative spurs of the thoracic and lumbar vertebrae. There are multiple gas deposits that are scattered in the lumbar canal at the lower lumbar spine from L3 L4-L5 S1. There are gas droplets also in the paravertebral soft tissues at these disc levels. This is likely due to the degenerative change of the disc at L5-S1. Status post median sternotomy. There is subchondral sclerosis and cystic changes of the right and left femoral heads consistent with avascular necrosis. The femoral head remains spherical without fracture. IMPRESSION: 1. Moderate hydronephrosis of right kidney. Multiple renal and ureteral calculi. There is a 1 mm stone at the right bladder trigone at the right UVJ. 2. Diverticulosis of the colon. Focal diverticulitis of the proximal sigmoid colon. 3. No acute change of chest. Stable chronic volume loss and bronchiectasis at the right upper lobe. 4. Extensive atherosclerotic vascular calcifications. There is a subtle aneurysmal dilatation of the distal aorta at the bifurcation measuring 2.7 cm. 5. 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 Patient had sepsis criteria on admission. He had saturation 93% on 4 L, temperature 100.1 and a systolic blood pressure in the 90s. Allergies/Medications Allergies: Coded Allergies: lisinopril (Severe, LIP/TONGUE SWELLING 02/18/16) Home Med List: Acetaminophen (Tylenol Extra Strength) 500 MG TABLET 1 TAB PO BID PAIN ( Reported) Aspirin (Children's Aspirin) 81 MG TAB.CHEW 1 TAB PO DAILY HEART HEALTH ( Reported) Cholecalciferol (Vitamin D3) (Vitamin D) 2,000 UNIT CAPSULE 1 CAP PO DAILY SUPPLEMENT (Reported) Cyanocobalamin (Vitamin B-12) (B-12 Dots) 500 MCG TABLET 1 TAB PO DAILY SUPPLEMENT (Reported) Docusate Sodium (Colace) 100 MG CAPSULE 1 CAP PO DAILY STOOL (Reported) Fluoxetine HCl (Prozac) 10 MG CAPSULE 1 CAP PO QAM MENTAL HEALTH (Reported) Folic Acid 0.4 MG TABLET 1 TAB PO DAILY SUPPLEMENT (Reported) Memantine HCl (Namenda XR) 21 MG CAP.SPR.24 1 TAB PO DAILY MENTAL HEALTH ( Reported) Rosuvastatin Calcium (Crestor) 40 MG TABLET 1 TAB PO DAILY CHOLESTEROL ( Reported) Trazodone HCl 50 MG TABLET 1 TAB PO TID PRN agitation (Reported) Past History Travel History Traveled to [place] past 21 day No Medical History 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), dementia EENT: NONE Cardiovascular: aortic aneurysm, CAD ( s/p CABG), hypertension, hyperlipidemia, PVD, carotid disease Respiratory: COPD ( - on 2L of O2), stage 3 nonsmall cell lung cancer s/p radiation Gastrointestinal: GERD, peptic ulcer disease Hepatic: NONE Renal: chronic kidney disease, nephrolithiasis Musculoskeletal: NONE Psychiatric: NONE Endocrine: NONE Blood Disorders: NONE Cancer(s): lung cancer 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 no Functional Ability ADLs Needs Assist: dressing, eating, toileting, bathing. IADLs Needs Assist: shopping, housework, finances, food prep, telephone, transportation, medication admin. Review of Systems Review of Systems: Unable to Obtain ROS due to patient's Dementia Exam & Diagnostic Data Vital Signs and I&O Vital Signs Date Time Temp Pulse Resp B/P B/P Pulse O2 O2 Flow FiO2 Mean Ox Delivery Rate 01/11 1012 98.4 78 20 144/70 97 01/11 0755 98.2 88 17 157/67 98 01/11 0546 96 Room Air 01/11 0533 97.2 86 20 138/69 96 Room Air 01/11 0124 Room Air 01/11 0053 128/62 01/10 2218 99.2 81 16 104/66 96 Room Air 01/10 2102 93 Nasal 4.0L Cannula 01/10 1944 99.3 77 14 116/74 97 Room Air 01/10 1615 100.1 82 14 99/54 96 Room Air 01/10 1611 Room Air Intake & Output 01/11 1600 01/11 0400 01/10 1600 01/10 0400 01/09 1600 01/09 0400 Intake Total 2000 Output Total 600 700 Balance -600 1300 Intake, IV 2000 Output, Urine 600 700 Patient 180 lb Weight Weight Reported by Patient Measurement Method Physical Exam General Appearance: no apparent distress Head: atraumatic Neck: normal inspection Respiratory: lungs clear Cardiovascular: regular rate/rhythm Gastrointestinal: soft, non-tender Extremities: normal inspection, pedal edema Neurologic/Psych: no motor/sensory deficits (unresponsive) Cranial Nerves: unable to assess Skin: intact, pallor Results Pertinent Lab Results: Laboratory Tests 01/11 01/11 01/11 0541 0242 0008 Chemistry Sodium (137 - 145 mmol/L) 142 Potassium (3.5 - 5.1 mmol/L) 4.0 Chloride (98 - 107 mmol/L) 107 Carbon Dioxide (22 - 30 mmol/L) 19 L Anion Gap (5 - 16) 15 BUN (9 - 20 mg/dL) 86 H Creatinine (0.7 - 1.2 mg/dL) 3.9 H Estimated GFR (>60 ml/min) 15 L BUN/Creatinine Ratio (7 - 25 %) 22.1 Lactic Acid (0.7 - 2.1 mmol/L) 0.7 0.9 Magnesium (1.6 - 2.3 mg/dL) 2.2 Total Bilirubin (0.2 - 1.3 mg/dL) 0.2 Direct Bilirubin (< 0.4 mg/dL) 0.2 AST (17 - 59 U/L) 187 H ALT (21 - 72 U/L) 170 H Alkaline Phosphatase (< 127 U/L) 111 Total Protein (6.3 - 8.2 g/dL) 5.6 L Albumin (3.5 - 5.0 g/dL) 2.5 L Hematology CBC w Diff MAN DIFF ORDERED WBC (4.8 - 10.8 /CUMM) 18.3 H RBC (4.70 - 6.10 /CUMM) 3.76 L Hgb (14.0 - 18.0 G/DL) 9.1 L Hct (42 - 52 %) 28.6 L MCV (80.0 - 94.0 FL) 76.2 L MCH (27.0 - 31.0 PG) 24.1 L MCHC (33.0 - 37.0 G/DL) 31.7 L RDW (11.5 - 14.5 %) 16.0 H Plt Count (130 - 400 /CUMM) 313 MPV (7.4 - 10.4 FL) 8.7 Gran % (42.2 - 75.2 %) 86.8 H Lymphocytes % (20.5 - 51.1 %) 6.5 L Monocytes % (1.7 - 9.3 %) 6.7 Eosinophils % (0 - 5 %) 0 Basophils % (0.0 - 2.0 %) 0 Absolute Granulocytes (1.4 - 6.5 /CUMM) 15.9 H Segmented Neutrophils (42.2 - 75.2 %) 92 H Absolute Lymphocytes (1.2 - 3.4 /CUMM) 1.2 Lymphocytes (20.5 - 51.1 %) 6 L Monocytes (1.7 - 9.3 %) 2 Absolute Monocytes (0.10 - 0.60 /CUMM) 1.2 H Absolute Eosinophils (0.0 - 0.7 /CUMM) 0 Absolute Basophils (0.0 - 0.2 /CUMM) 0 Platelet Estimate (ADEQUATE) ADEQUATE Hypochromic-Microcytic 1+ Elliptocytes 1+ Serology Hepatitis A IgM Ab (NONREACTIVE) NONREACTIVE Hep Bs Antigen (NONREACTIVE) NONREACTIVE Hep B Core IgM Ab Conf (NONREACTIVE) NONREACTIVE Hepatitis C Antibody (NONREACTIVE) NONREACTIVE 01/10 194 1823 Chemistry Lactic Acid Cancelled Hematology WBC (4.8 - 10.8 /CUMM) 16.5 H RBC (4.70 - 6.10 /CUMM) 4.15 L Hgb (14.0 - 18.0 G/DL) 9.9 L Hct (42 - 52 %) 31.6 L MCV (80.0 - 94.0 FL) 76.2 L MCH (27.0 - 31.0 PG) 23.9 L MCHC (33.0 - 37.0 G/DL) 31.4 L RDW (11.5 - 14.5 %) 16.3 H Plt Count (130 - 400 /CUMM) 345 MPV (7.4 - 10.4 FL) 8.9 Gran % (42.2 - 75.2 %) 87.3 H Lymphocytes % (20.5 - 51.1 %) 6.3 L Monocytes % (1.7 - 9.3 %) 6.3 Eosinophils % (0 - 5 %) 0.1 Basophils % (0.0 - 2.0 %) 0 Absolute Granulocytes (1.4 - 6.5 /CUMM) 14.4 H Absolute Lymphocytes (1.2 - 3.4 /CUMM) 1.0 L Absolute Monocytes (0.10 - 0.60 /CUMM) 1.0 H Absolute Eosinophils (0.0 - 0.7 /CUMM) 0 Absolute Basophils (0.0 - 0.2 /CUMM) 0 Urines Urinalysis HEAVY H Urine Color (YEL,AMB,STR) YEL Urine Clarity (CLEAR) CLEAR Urine pH (5.0 - 8.0) 6.0 Ur Specific [place] (1.001 - 1.035) 1.020 Urine Protein (NEG,<30 MG/DL) 30 H Urine Ketones (NEG) NEG Urine Nitrite (NEG) NEG Urine Bilirubin (NEG) NEG Urine Urobilinogen (0.1 - 1.0 EU/dl) 0.2 Ur Leukocyte Esterase (NEG) NEG Ur Microscopic SEDIMENT EXAMINED Urine RBC (0 - 5 /HPF) 50-75 H Urine WBC (0 - 2 /HPF) 3-5 H Urine Bacteria (NEG/NONE) FEW H Urine Mucus (FEW,NONE) FEW Urine Hemoglobin (NEG) LARGE H Urine Glucose (N MG/DL) NEG 01/10 1805 Chemistry Sodium (137 - 145 mmol/L) 138 Potassium (3.5 - 5.1 mmol/L) 4.4 Chloride (98 - 107 mmol/L) 102 Carbon Dioxide (22 - 30 mmol/L) 19 L Anion Gap (5 - 16) 17 H BUN (9 - 20 mg/dL) 89 H Creatinine (0.7 - 1.2 mg/dL) 4.0 H Estimated GFR (>60 ml/min) 15 L BUN/Creatinine Ratio (7 - 25 %) 22.3 Glucose (65 - 99 mg/dL) 126 H Lactic Acid (0.7 - 2.1 mmol/L) 1.1 Calcium (8.4 - 10.2 mg/dL) 8.8 Total Bilirubin (0.2 - 1.3 mg/dL) 0.4 AST (17 - 59 U/L) 263 H ALT (21 - 72 U/L) 196 H Alkaline Phosphatase (< 127 U/L) 129 H Troponin I (<0.11 ng/ml) 0.02 Total Protein (6.3 - 8.2 g/dL) 6.1 L Albumin (3.5 - 5.0 g/dL) 2.7 L Globulin (1.9 - 4.2 gm/dL) 3.4 Albumin/Globulin Ratio (1.1 - 2.2 %) 0.8 L Imaging/Other Studies: FINDINGS: CT CHEST: LUNGS: There is stable chronic volume loss in the right upper lobe with bronchiectasis and elevation of the right hilum. This is similar to the prior exam of 06/06/2011. MEDIASTINUM: Status post median sternotomy. There is vascular calcifications of the aorta. There is vascular calcification of coronary arteries. No mediastinal mass. No bulky lymphadenopathy. There is no pericardial effusion. PLEURA: There is no pleural effusion. No pleural mass or thickening. AXILLA: No lymphadenopathy. CT ABDOMEN AND PELVIS: LIVER, GALLBLADDER, AND BILIARY TREE: The liver is normal in size, shape, and attenuation. No focal hepatic lesion or biliary ductal dilatation is present. The gallbladder is unremarkable with no evidence of radiopaque gallstones, gallbladder wall thickening, or obvious pericholecystic inflammatory changes. PANCREAS: No acute change of the pancreas. No mass. No pancreatic duct dilatation. SPLEEN: Spleen normal in size and contour. No focal lesion. ADRENAL GLANDS: Adrenal glands are normal in size. No focal mass. KIDNEYS AND URETERS: There is moderate hydronephrosis of right kidney with distention of renal pelvis and calyces. There are multiple tiny stones layering dependently in the renal pelvis in the midpole and lower pole calyces. There are a couple tiny stones also in the proximal dilated right ureter. There is a 1 mm stone at the right bladder trigone, axial image 113 (2). The left kidney and ureter are normal. There is a pedunculated cyst at the upper pole of the right kidney measuring 5.6 cm. BLADDER: Unremarkable. GASTROINTESTINAL TRACT: There is marked diverticulosis of the left colon sigmoid with scattered diverticula in the right colon. There is focal bowel wall thickening and subtle pericolonic edema at the proximal sigmoid consistent with focal diverticulitis. Moderate amount of stool throughout the colon. The appendix is normal. The small bowel loops are normal. MESENTERY: Edema related to the diverticulitis in the mesentery in the left lower quadrant. There is no free air. ABDOMINAL WALL: No significant hernia is appreciated. LYMPH NODES: Normal. VASCULAR: There is atherosclerotic vascular wall calcifications of the aorta and iliac arteries. There is subtle aneurysmal dilatation of the distal aorta proximal to the bifurcation measuring 2.7 cm transverse. There is vascular calcification at the origin of the celiac axis, SMA and renal arteries. PELVIC VISCERA: Prostate measures 5 cm transverse. OSSEOUS STRUCTURES: No acute abnormality. No fracture. There is bony fusion of ossification of the disc at L4-L5. There is multilevel endplate degenerative spurs of the thoracic and lumbar vertebrae. There are multiple gas deposits that are scattered in the lumbar canal at the lower lumbar spine from L3 L4-L5 S1. There are gas droplets also in the paravertebral soft tissues at these disc levels. This is likely due to the degenerative change of the disc at L5-S1. Status post median sternotomy. There is subchondral sclerosis and cystic changes of the right and left femoral heads consistent with avascular necrosis. The femoral head remains spherical without fracture. IMPRESSION: 1. Moderate hydronephrosis of right kidney. Multiple renal and ureteral calculi. There is a 1 mm stone at the right bladder trigone at the right UVJ. 2. Diverticulosis of the colon. Focal diverticulitis of the proximal sigmoid colon. 3. No acute change of chest. Stable chronic volume loss and bronchiectasis at the right upper lobe. 4. Extensive atherosclerotic vascular calcifications. There is a subtle aneurysmal dilatation of the distal aorta at the bifurcation measuring 2.7 cm. 5. 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 Assessment/Plan Assessment/Recommendations: ASSESSMENT: 1. Inflammatory Changes involving the Descending and Proximal Sigmoid Colon -- ? Chronic thickening due to Diverticulosis, seen on CT of 2015. I have reviewed the CT with Dr. Butler. ? Superimposed Segmental Colitis Associated with Diverticulitis. 2. Anemia, microcytic -- ? due to GI blood loss versus, chronic disease, ? hemodilution int he setting of obstructive uropathy 4. Leukocytosis -- blood cultures positive for Gram Positive Rods, Await identification and Sensitivities. 6. Sepsis 6. Hydronephrosis with multiple obstructing calculi 7. ?Mass in Bladder -- patient with RBC on UA 8. Acute Renal Failure 9. Elevated Transaminases -- likely related to hypotension, appear to be trending downwards, hepatitis serologies are negative. RECOMMENDATIONS: 1. Await identification and sensitivities from positive blood cultures. 2. Would consider broadening antibiotic coverage to Zosyn given increasing WBC 3. Urology consultation given obstructing nephrolithiasis and bladder mass 4. Iron studies, B12 and Folate 5. Serial H/H 6. Protonix 40 mg IV daily 7. Patient is not stable for endoscopic evaluation at this time. As there is no active bleeding would not consider until urologic issues are resolves. Consult Acknowledgment - Thank you for your consult request.
--- NOTE | 2018-01-11 13:54 | Cons- Infect Disease ---
General Information and HPI Consulting Request Date of Consult: 01/11/18 Requested By: Iona HOWELL,Ismael Reason for Consult: Positive blood culture for gram-positive rods Source of Information: old records Exam Limitations: unable to give history, dementia History of Present Illness: This is a 77-year-old man with dementia, coronary artery disease, status post CABG, hypertension, aortic aneurysm, peripheral vascular disease, COPD, maintained on 2 L of oxygen, non-small cell lung cancer, status post radiation, peptic ulcer disease and nephrolithiasis, hospitalized over 3 years prior to admission with diverticulitis and 1-1/2 years prior to admission with a COPD exacerbation/pneumonia, admitted on January 10 with back pain, weakness and decreased p.o. intake following a fall 2 days earlier. On admission he was febrile to 100.1, with a blood pressure of 99/54. Laboratory data revealed a white blood cell count of 16.5, BUN/creatinine 89 and 4.0, alkaline phosphatase 129, AST/ALT 263 and 196. Urinalysis 50-75 RBC/3-[address] of the head and cervical spine were negative for any acute process. 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 A Tan catheter was inserted, with 700 cc of urine obtained. He was begun on Ceftriaxone and Flagyl and defervesced, with no recurrent fevers. This morning one blood culture was reported positive for gram -positive rods. He is unable to provide any history secondary to his underlying dementia. Allergies/Medications Allergies: Coded Allergies: lisinopril (Severe, LIP/TONGUE SWELLING 02/18/16) Home Med List: Acetaminophen (Tylenol Extra Strength) 500 MG TABLET 1 TAB PO BID PAIN ( Reported) Aspirin (Children's Aspirin) 81 MG TAB.CHEW 1 TAB PO DAILY HEART HEALTH ( Reported) Cholecalciferol (Vitamin D3) (Vitamin D) 2,000 UNIT CAPSULE 1 CAP PO DAILY SUPPLEMENT (Reported) Cyanocobalamin (Vitamin B-12) (B-12 Dots) 500 MCG TABLET 1 TAB PO DAILY SUPPLEMENT (Reported) Docusate Sodium (Colace) 100 MG CAPSULE 1 CAP PO DAILY STOOL (Reported) Fluoxetine HCl (Prozac) 10 MG CAPSULE 1 CAP PO QAM MENTAL HEALTH (Reported) Folic Acid 0.4 MG TABLET 1 TAB PO DAILY SUPPLEMENT (Reported) Memantine HCl (Namenda XR) 21 MG CAP.SPR.24 1 TAB PO DAILY MENTAL HEALTH ( Reported) Rosuvastatin Calcium (Crestor) 40 MG TABLET 1 TAB PO DAILY CHOLESTEROL ( Reported) Trazodone HCl 50 MG TABLET 1 TAB PO TID PRN agitation (Reported) Past History Travel History Traveled to [place] past 21 day No Medical History 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), dementia EENT: NONE Cardiovascular: aortic aneurysm, CAD ( s/p CABG), hypertension, hyperlipidemia, PVD, carotid disease Respiratory: COPD ( - on 2L of O2), stage 3 nonsmall cell lung cancer s/p radiation Gastrointestinal: GERD, peptic ulcer disease Hepatic: NONE Renal: chronic kidney disease, nephrolithiasis Musculoskeletal: NONE Psychiatric: NONE Endocrine: NONE Blood Disorders: NONE 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 no Functional Ability ADLs Needs Assist: dressing, eating, toileting, bathing. IADLs Needs Assist: shopping, housework, finances, food prep, telephone, transportation, medication admin. Review of Systems Comments Unobtainable Exam & Diagnostic Data Last 24 Hrs of Vital Signs/I&O Vital Signs Date Time Temp Pulse Resp B/P B/P Pulse O2 O2 Flow FiO2 Mean Ox Delivery Rate 01/11 1012 98.4 78 20 144/70 97 01/11 0755 98.2 88 17 157/67 98 01/11 0546 96 Room Air 01/11 0533 97.2 86 20 138/69 96 Room Air 01/11 0124 Room Air 01/11 0053 128/62 01/10 2218 99.2 81 16 104/66 96 Room Air 01/10 2102 93 Nasal 4.0L Cannula 01/10 1944 99.3 77 14 116/74 97 Room Air 01/10 1615 100.1 82 14 99/54 96 Room Air 01/10 1611 Room Air Intake & Output 01/11 1600 01/11 0800 01/11 0000 Intake Total 2000 Output Total 600 700 Balance -600 1300 Intake, IV 2000 Output, Urine 600 700 Patient 180 lb Weight Weight Reported by Patient Measurement Method Physical Exam Other Physical Findings: He is awake and alert, minimally verbal, but in no acute distress. T-max 100.1. Skin reveals no rash. HEENT exam poor dentition. Neck is supple with no adenopathy. Lungs scattered wheezes bilaterally. Heart regular rhythm with a 1 /6 to 2/6 systolic ejection murmur. Abdomen is mildly distended, tender on deep palpation of the left lower quadrant, with no guarding or rebound, with positive bowel sounds. Back no obvious CVA tenderness. Extremities no cyanosis, clubbing or edema. Neuro is without focality. Tan catheter is in place. Last 24 Hours of Lab Results: Laboratory Tests 01/11 01/11 01/11 0541 0242 0008 Chemistry Sodium (137 - 145 mmol/L) 142 Potassium (3.5 - 5.1 mmol/L) 4.0 Chloride (98 - 107 mmol/L) 107 Carbon Dioxide (22 - 30 mmol/L) 19 L Anion Gap (5 - 16) 15 BUN (9 - 20 mg/dL) 86 H Creatinine (0.7 - 1.2 mg/dL) 3.9 H Estimated GFR (>60 ml/min) 15 L BUN/Creatinine Ratio (7 - 25 %) 22.1 Lactic Acid (0.7 - 2.1 mmol/L) 0.7 0.9 Magnesium (1.6 - 2.3 mg/dL) 2.2 Total Bilirubin (0.2 - 1.3 mg/dL) 0.2 Direct Bilirubin (< 0.4 mg/dL) 0.2 AST (17 - 59 U/L) 187 H ALT (21 - 72 U/L) 170 H Alkaline Phosphatase (< 127 U/L) 111 Total Protein (6.3 - 8.2 g/dL) 5.6 L Albumin (3.5 - 5.0 g/dL) 2.5 L Hematology CBC w Diff MAN DIFF ORDERED WBC (4.8 - 10.8 /CUMM) 18.3 H RBC (4.70 - 6.10 /CUMM) 3.76 L Hgb (14.0 - 18.0 G/DL) 9.1 L Hct (42 - 52 %) 28.6 L MCV (80.0 - 94.0 FL) 76.2 L MCH (27.0 - 31.0 PG) 24.1 L MCHC (33.0 - 37.0 G/DL) 31.7 L RDW (11.5 - 14.5 %) 16.0 H Plt Count (130 - 400 /CUMM) 313 MPV (7.4 - 10.4 FL) 8.7 Gran % (42.2 - 75.2 %) 86.8 H Lymphocytes % (20.5 - 51.1 %) 6.5 L Monocytes % (1.7 - 9.3 %) 6.7 Eosinophils % (0 - 5 %) 0 Basophils % (0.0 - 2.0 %) 0 Absolute Granulocytes (1.4 - 6.5 /CUMM) 15.9 H Segmented Neutrophils (42.2 - 75.2 %) 92 H Absolute Lymphocytes (1.2 - 3.4 /CUMM) 1.2 Lymphocytes (20.5 - 51.1 %) 6 L Monocytes (1.7 - 9.3 %) 2 Absolute Monocytes (0.10 - 0.60 /CUMM) 1.2 H Absolute Eosinophils (0.0 - 0.7 /CUMM) 0 Absolute Basophils (0.0 - 0.2 /CUMM) 0 Platelet Estimate (ADEQUATE) ADEQUATE Hypochromic-Microcytic 1+ Elliptocytes 1+ Serology Hepatitis A IgM Ab (NONREACTIVE) NONREACTIVE Hep Bs Antigen (NONREACTIVE) NONREACTIVE Hep B Core IgM Ab Conf (NONREACTIVE) NONREACTIVE Hepatitis C Antibody (NONREACTIVE) NONREACTIVE 01/10 01/10 01/10 2240 8817 1821 Chemistry Lactic Acid Cancelled Hematology WBC (4.8 - 10.8 /CUMM) 16.5 H RBC (4.70 - 6.10 /CUMM) 4.15 L Hgb (14.0 - 18.0 G/DL) 9.9 L Hct (42 - 52 %) 31.6 L MCV (80.0 - 94.0 FL) 76.2 L MCH (27.0 - 31.0 PG) 23.9 L MCHC (33.0 - 37.0 G/DL) 31.4 L RDW (11.5 - 14.5 %) 16.3 H Plt Count (130 - 400 /CUMM) 345 MPV (7.4 - 10.4 FL) 8.9 Gran % (42.2 - 75.2 %) 87.3 H Lymphocytes % (20.5 - 51.1 %) 6.3 L Monocytes % (1.7 - 9.3 %) 6.3 Eosinophils % (0 - 5 %) 0.1 Basophils % (0.0 - 2.0 %) 0 Absolute Granulocytes (1.4 - 6.5 /CUMM) 14.4 H Absolute Lymphocytes (1.2 - 3.4 /CUMM) 1.0 L Absolute Monocytes (0.10 - 0.60 /CUMM) 1.0 H Absolute Eosinophils (0.0 - 0.7 /CUMM) 0 Absolute Basophils (0.0 - 0.2 /CUMM) 0 Urines Urinalysis HEAVY H Urine Color (YEL,AMB,STR) YEL Urine Clarity (CLEAR) CLEAR Urine pH (5.0 - 8.0) 6.0 Ur Specific [place] (1.001 - 1.035) 1.020 Urine Protein (NEG,<30 MG/DL) 30 H Urine Ketones (NEG) NEG Urine Nitrite (NEG) NEG Urine Bilirubin (NEG) NEG Urine Urobilinogen (0.1 - 1.0 EU/dl) 0.2 Ur Leukocyte Esterase (NEG) NEG Ur Microscopic SEDIMENT EXAMINED Urine RBC (0 - 5 /HPF) 50-75 H Urine WBC (0 - 2 /HPF) 3-5 H Urine Bacteria (NEG/NONE) FEW H Urine Mucus (FEW,NONE) FEW Urine Hemoglobin (NEG) LARGE H Urine Glucose (N MG/DL) NEG 01/10 1805 Chemistry Sodium (137 - 145 mmol/L) 138 Potassium (3.5 - 5.1 mmol/L) 4.4 Chloride (98 - 107 mmol/L) 102 Carbon Dioxide (22 - 30 mmol/L) 19 L Anion Gap (5 - 16) 17 H BUN (9 - 20 mg/dL) 89 H Creatinine (0.7 - 1.2 mg/dL) 4.0 H Estimated GFR (>60 ml/min) 15 L BUN/Creatinine Ratio (7 - 25 %) 22.3 Glucose (65 - 99 mg/dL) 126 H Lactic Acid (0.7 - 2.1 mmol/L) 1.1 Calcium (8.4 - 10.2 mg/dL) 8.8 Total Bilirubin (0.2 - 1.3 mg/dL) 0.4 AST (17 - 59 U/L) 263 H ALT (21 - 72 U/L) 196 H Alkaline Phosphatase (< 127 U/L) 129 H Troponin I (<0.11 ng/ml) 0.02 Total Protein (6.3 - 8.2 g/dL) 6.1 L Albumin (3.5 - 5.0 g/dL) 2.7 L Globulin (1.9 - 4.2 gm/dL) 3.4 Albumin/Globulin Ratio (1.1 - 2.2 %) 0.8 L Last 24 Hours of Alan Results: Blood culture x January 10 positive for gram-positive rods Blood culture x January 11 negative Urine culture January 10 negative Diagnostic Data Recent Imaging Findings: CT of the head and cervical spine were negative for any acute process. 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 Assessment/Plan Assessment/Plan Impression: This is a 77-year-old man with dementia, hospitalized over 3 years prior to admission with diverticulitis and 1-1/2 years prior to admission with a COPD exacerbation/pneumonia, admitted on January 10 with back pain, weakness and decreased p.o. intake following a fall 2 days earlier, found to have a low-grade fever with borderline hypotension, leukocytosis and elevated liver enzymes, with a CT of the abdomen and pelvis revealing moderate hydronephrosis of the right kidney, with multiple renal and ureteral calculi, and focal diverticulitis of the proximal sigmoid colon, with one blood culture reported positive today for gram-positive rods. The most likely source of infection appears to be diverticulitis, with tenderness to palpation of the left lower quadrant and with the CT findings of a focal diverticulitis of the proximal sigmoid colon. The positive blood culture for gram-positive rods, isolated from the anaerobic bottle, may well bottom turner to be Clostridium, which can certainly be seen in intra-abdominal infections. The positive blood culture could also prove to be a contaminant and will await the final ID. His CT scan also reveals right hydronephrosis, but his urinalysis is not suggestive of a urinary tract infection. The hydronephrosis may be related to his urinary retention, with 700 cc of urine obtained in the ER upon placement of the Tan catheter, or to obstruction from nephrolithiasis, and Urology input would be helpful. His renal failure may be multifactorial, secondary to sepsis and urinary retention, and his renal function will need to be monitored closely. His elevated liver enzymes are likely secondary to sepsis. Suggestion: 1. Ensure adequate fluids, with close monitoring of his renal function 2. Renal input if his renal function does not improve 3. Urology evaluation 4. Follow-up final blood cultures 5. Continue Ceftriaxone and Flagyl pending above Consult Acknowledgment - Thank you for your consult request.
[2018-01-11 17:28] VITALS: BP 158/60
--- NOTE | 2018-01-11 20:12 | Cons- Urology ---
General Information and HPI Consulting Request Date of Consult: 01/11/18 Requested By: Ismael Monson MD Reason for Consult: R hydronephrosis, elevated creatinine, R renal and R ureteral stone Source of Information: old records Exam Limitations: unable to give history History of Present Illness: This patient was brought to the ER due to weakness, lethargy, declining mental status and a recent fall. He has multiple medical issues including dementia, CAD, HTN, COPD, hx of lung ca and hx of urinary stones. In ER he was found to have a leukocytosis and elevated creatinine. CT of the abd and pelvis shows evidence of acute diverticulitis, R hydronephrosis, several small, non obstructing renal stones and a 1 mm R UVJ stone. The R ureter is dilated down to the R UVJ stone. His bladder was somewhat distended on the CT scan, but this appears chronic based on old scans. A ayala was placed for 700 cc. His U/A shows blood but is not c/w infection. He is now admitted to medicine for tx of acute diverticulitis Allergies/Medications Allergies: Coded Allergies: lisinopril (Severe, LIP/TONGUE SWELLING 02/18/16) Home Med List: Acetaminophen (Tylenol Extra Strength) 500 MG TABLET 1 TAB PO BID PAIN ( Reported) Aspirin (Children's Aspirin) 81 MG TAB.CHEW 1 TAB PO DAILY HEART HEALTH ( Reported) Cholecalciferol (Vitamin D3) (Vitamin D) 2,000 UNIT CAPSULE 1 CAP PO DAILY SUPPLEMENT (Reported) Cyanocobalamin (Vitamin B-12) (B-12 Dots) 500 MCG TABLET 1 TAB PO DAILY SUPPLEMENT (Reported) Docusate Sodium (Colace) 100 MG CAPSULE 1 CAP PO DAILY STOOL (Reported) Fluoxetine HCl (Prozac) 10 MG CAPSULE 1 CAP PO QAM MENTAL HEALTH (Reported) Folic Acid 0.4 MG TABLET 1 TAB PO DAILY SUPPLEMENT (Reported) Memantine HCl (Namenda XR) 21 MG CAP.SPR.24 1 TAB PO DAILY MENTAL HEALTH ( Reported) Rosuvastatin Calcium (Crestor) 40 MG TABLET 1 TAB PO DAILY CHOLESTEROL ( Reported) Trazodone HCl 50 MG TABLET 1 TAB PO TID PRN agitation (Reported) Current Medications: Current Medications Sig/Edgardo Start time Last Medication Dose Route Stop Time Status Admin Acetaminophen 1,000 MG Q6P PRN 01/11 0015 AC IV Ceftriaxone Sodium 0 .STK-MED ONE 01/11 0236 DC .ROUTE Ceftriaxone Sodium 1,000 MG DAILY 01/11 0145 AC 01/11 IV 0309 Ciprofloxacin 400 MG Q24 01/11 0900 CAN Dextrose/Water 200 ML IV Dextrose/Sodium 1,000 ML Q10H 01/11 0030 AC 01/11 Chloride IV 1553 Fluoxetine HCl 20 MG AT BEDTIME 01/11 2100 AC PO Fluoxetine HCl 10 MG QAM 01/11 0900 DC 01/11 PO 0829 Heparin Sodium 5,000 UNIT Q8 01/11 0600 AC 01/11 (Porcine) SC 1539 Heparin Sodium 0 .STK-MED ONE 01/11 0529 DC (Porcine) .ROUTE Lorazepam 1 MG ONCE ONE 01/10 2200 DC 01/10 IV 01/10 Lorazepam 0 .STK-MED ONE 01/11 2124 DC .ROUTE Lorazepam 1 MG ONCE ONE 01/10 2045 DC 01/10 IV 01/10 Lorazepam 0 .STK-MED ONE 01/11 2044 DC .ROUTE Lorazepam 0 .STK-MED ONE 01/10 2031 DC .ROUTE Metronidazole 500 MG IQ8 01/11 0030 01/11 N/A 1 UNIT IV 1805 Sodium Chloride 1,000 ML BOLUS ONE 01/10 194 DC 01/10 IV 01/10 Past History Medical History 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), dementia EENT: NONE Cardiovascular: aortic aneurysm, CAD ( s/p CABG), hypertension, hyperlipidemia, PVD, carotid disease Respiratory: COPD ( - on 2L of O2), stage 3 nonsmall cell lung cancer s/p radiation Gastrointestinal: GERD, peptic ulcer disease Hepatic: NONE Renal: chronic kidney disease, nephrolithiasis Musculoskeletal: NONE Psychiatric: NONE Endocrine: NONE Blood Disorders: NONE 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 no Functional Ability ADLs Needs Assist: dressing, eating, toileting, bathing. IADLs Needs Assist: shopping, housework, finances, food prep, telephone, transportation, medication admin. Exam & Diagnostic Data Vital Signs and I&O Vital Signs Date Time Temp Pulse Resp B/P B/P Pulse O2 O2 Flow FiO2 Mean Ox Delivery Rate 01/11 1914 Nasal 2.0L Cannula 01/11 1728 99.5 95 20 158/60 96 Nasal 2.0L Cannula 01/11 1600 Nasal 2.0L Cannula 01/11 1337 95 Nasal 2.0L Cannula 01/11 1012 98.4 78 20 144/70 97 01/11 0755 98.2 88 17 157/67 98 01/11 0546 96 Room Air 01/11 0533 97.2 86 20 138/69 96 Room Air 01/11 0124 Room Air 01/11 0053 128/62 01/10 2218 99.2 81 16 104/66 96 Room Air 01/10 2102 93 Nasal 4.0L Cannula Intake & Output 01/11 0800 01/11 0000 01/10 1600 01/10 0800 01/10 0000 Intake Total 2000 Output Total 800 600 700 Balance -800 -600 1300 Intake, IV 2000 Output, Urine 800 600 700 Patient 174 lb 180 lb Weight Weight Bed scale Reported by Patient Measurement Method No acute distress. Pt not verbal Back: no CVA tenderness Abd: soft, some LLQ tenderness Genitalia: ayala in place draining marcella urine Laboratory Tests 01/11 01/11 01/11 0541 0242 0008 Chemistry Sodium (137 - 145 mmol/L) 142 Potassium (3.5 - 5.1 mmol/L) 4.0 Chloride (98 - 107 mmol/L) 107 Carbon Dioxide (22 - 30 mmol/L) 19 L Anion Gap (5 - 16) 15 BUN (9 - 20 mg/dL) 86 H Creatinine (0.7 - 1.2 mg/dL) 3.9 H Estimated GFR (>60 ml/min) 15 L BUN/Creatinine Ratio (7 - 25 %) 22.1 Lactic Acid (0.7 - 2.1 mmol/L) 0.7 0.9 Magnesium (1.6 - 2.3 mg/dL) 2.2 Total Bilirubin (0.2 - 1.3 mg/dL) 0.2 Direct Bilirubin (< 0.4 mg/dL) 0.2 AST (17 - 59 U/L) 187 H ALT (21 - 72 U/L) 170 H Alkaline Phosphatase (< 127 U/L) 111 Total Protein (6.3 - 8.2 g/dL) 5.6 L Albumin (3.5 - 5.0 g/dL) 2.5 L Hematology CBC w Diff MAN DIFF ORDERED WBC (4.8 - 10.8 /CUMM) 18.3 H RBC (4.70 - 6.10 /CUMM) 3.76 L Hgb (14.0 - 18.0 G/DL) 9.1 L Hct (42 - 52 %) 28.6 L MCV (80.0 - 94.0 FL) 76.2 L MCH (27.0 - 31.0 PG) 24.1 L MCHC (33.0 - 37.0 G/DL) 31.7 L RDW (11.5 - 14.5 %) 16.0 H Plt Count (130 - 400 /CUMM) 313 MPV (7.4 - 10.4 FL) 8.7 Gran % (42.2 - 75.2 %) 86.8 H Lymphocytes % (20.5 - 51.1 %) 6.5 L Monocytes % (1.7 - 9.3 %) 6.7 Eosinophils % (0 - 5 %) 0 Basophils % (0.0 - 2.0 %) 0 Absolute Granulocytes (1.4 - 6.5 /CUMM) 15.9 H Segmented Neutrophils (42.2 - 75.2 %) 92 H Absolute Lymphocytes (1.2 - 3.4 /CUMM) 1.2 Lymphocytes (20.5 - 51.1 %) 6 L Monocytes (1.7 - 9.3 %) 2 Absolute Monocytes (0.10 - 0.60 /CUMM) 1.2 H Absolute Eosinophils (0.0 - 0.7 /CUMM) 0 Absolute Basophils (0.0 - 0.2 /CUMM) 0 Platelet Estimate (ADEQUATE) ADEQUATE Hypochromic-Microcytic 1+ Elliptocytes 1+ Serology Hepatitis A IgM Ab (NONREACTIVE) NONREACTIVE Hep Bs Antigen (NONREACTIVE) NONREACTIVE Hep B Core IgM Ab Conf (NONREACTIVE) NONREACTIVE Hepatitis C Antibody (NONREACTIVE) NONREACTIVE 01/10 2243 Urines Urinalysis HEAVY H Urine Color (YEL,AMB,STR) YEL Urine Clarity (CLEAR) CLEAR Urine pH (5.0 - 8.0) 6.0 Ur Specific [place] (1.001 - 1.035) 1.020 Urine Protein (NEG,<30 MG/DL) 30 H Urine Ketones (NEG) NEG Urine Nitrite (NEG) NEG Urine Bilirubin (NEG) NEG Urine Urobilinogen (0.1 - 1.0 EU/dl) 0.2 Ur Leukocyte Esterase (NEG) NEG Ur Microscopic SEDIMENT EXAMINED Urine RBC (0 - 5 /HPF) 50-75 H Urine WBC (0 - 2 /HPF) 3-5 H Urine Bacteria (NEG/NONE) FEW H Urine Mucus (FEW,NONE) FEW Urine Hemoglobin (NEG) LARGE H Urine Glucose (N MG/DL) NEG Assessment/Plan Assessment/Plan Imp: 1. diverticulitis. Agree with ID that this is the likely cause of leukocytosis as urine does not appear infected 2. Non obstructing small R renal stones 3. Small R UVJ stone with partial obstruction causing R hydronephrosis 4. Renal failure. Likely multifactorial: sepsis, dehydration, R ureteral stone 5. Multiple medical issues Plan: 1. As urine is not infected would give chance for R UVJ stone to pass 2. Start flomax 0.4 mg qd 3. strain urine 4. serial labs 5. Hydration 6. Abx for diverticulitis 7. If renal fxn doesn't improve with above measures may need R ureteroscopy and removal of R UVJ stone in next few days Consult Acknowledgment - Thank you for your consult request.
[2018-01-11 22:23] VITALS: BP 168/86
--- NOTE | 2018-01-12 00:23 | Event Note ---
Event Note Event Note: I had received a page from the night nurse regarding a positive blood culture from 01/11/2018, stated that culture was positive for gram-positive cocci. I called and confirmed results with microbiology lab, attendant unable to identify speciation. I discussed with Dr. Castellon the need to change antibiotics for coverage of possible MRSA infection. Patient has a history of gram-positive rods from blood culture on 01/10/2018. Was advised to continue with current antibiotic regimen with ceftriaxone and Flagyl, continue until final culture and sensitivities are back. Patient is currently stable, afebrile on current antibiotics
[2018-01-12 06:20] VITALS: BP 144/70
[2018-01-12 10:23] LABS: ABSOLUTE BASOPHIL COUNT 0 /CUMM (0.0-0.2); ABSOLUTE EOSINOPHIL COUNT 0 /CUMM (0.0-0.7); ABSOLUTE GRANULOCYTE CT 10.2 /CUMM (1.4-6.5); ABSOLUTE LYMPH COUNT 1.1 /CUMM (1.2-3.4); ABSOLUTE MONOCYTE COUNT 0.9 /CUMM (0.10-0.60); BASOPHIL % 0.1 % (0.0-2.0); EOSINOPHIL % 0 % (0-5); HEMATOCRIT 29.2 % (42-52); MEAN CORPUSCULAR HGB 24.2 PG (27.0-31.0); MEAN CORPUSCULAR HGB CONC 31.9 G/DL (33.0-37.0); MEAN CORPUSCULAR VOLUME 76.1 FL (80.0-94.0); MEAN PLATELET VOLUME 8.5 FL (7.4-10.4); PLATELET COUNT 336 /CUMM (130-400); RBC DISTRIBUTION WIDTH 16.7 % (11.5-14.5); RED BLOOD CELL CT 3.83 /CUMM (4.70-6.10); WHITE BLOOD CELL COUNT 12.3 /CUMM (4.8-10.8)
[2018-01-12 11:11] LABS: GRANULOCYTE % 83.1 % (42.2-75.2)
--- NOTE | 2018-01-12 13:53 | PN- Housestaff ---
Enmanuel Drew 01/12/18 1353: Subjective Follow-up For: Diverticulitis, transaminitis, JACQUELINE Subjective: Patient is seen and examined at the bedside. Patient is demented at baseline, was nonverbal and sedated today. Her other medical care administrator, patient was very aggressive on admission. Today patient was sleeping comfortably. Review of Systems Constitutional: Reports: see HPI. Objective Last 24 Hrs of Vital Signs/I&O Vital Signs Date Time Temp Pulse Resp B/P B/P Pulse O2 O2 Flow FiO2 Mean Ox Delivery Rate 01/12 1538 97.6 82 18 120/80 98 01/12 0857 122/82 01/12 0800 96 Nasal 2.0L Cannula 01/12 0620 97.5 79 20 144/70 96 Nasal 2.0L Cannula 01/12 0000 93 Nasal 2.0L Cannula 01/11 2223 98.6 82 20 168/86 96 Room Air 01/11 1914 Nasal 2.0L Cannula 01/11 1728 99.5 95 20 158/60 96 Nasal 2.0L Cannula Intake & Output 01/12 1600 01/12 0800 01/12 0000 Intake Total 850 800 400 Output Total 2050 900 1300 Balance -1200 -100 -900 Intake, IV 850 800 400 Intake, Oral 0 0 0 Number 0 Bowel Movements Output, Urine 2049 900 1300 Patient 174 lb 174 lb Weight Weight Bed scale Measurement Method Physical Exam General Appearance: No Acute Distress, sleeping comfortably/sedated Skin: No Rashes, No Breakdown, No Significant Lesion Skin Temp/Moisture Exam: Warm/Dry HEENT: Atraumatic Neck: Supple, No thryomegaly Lymphatic: Axillary nl, Cervical nl Cardiovascular: Regular Rate, Normal S1, Normal S2, No Murmurs, Gallops, Rubs Lungs: Clear to Auscultation, Normal Air Movement, difficult to assess due to patient sleeping Abdomen: Soft, No Tenderness, No Hepatospenomegaly Current Medications: Current Medications Sig/Edgardo Start time Last Medication Dose Route Stop Time Status Admin Acetaminophen 1,000 MG .STK-MED ONE 01/12 0249 DC IV 01/12 0250 Acetaminophen 1,000 MG Q6P PRN 01/11 0015 AC 01/12 IV 0251 Ceftriaxone Sodium 1,000 MG DAILY 01/11 0145 AC 01/12 IV 0858 Dextrose/Sodium 1,000 ML Q10H 01/12 1530 AC 01/12 Chloride IV 1530 Dextrose/Sodium 1,000 ML Q10H 01/11 0030 DC 01/12 Chloride IV 1423 Fluoxetine HCl 20 MG AT BEDTIME 01/11 2100 AC 01/11 PO 2110 Heparin Sodium 5,000 UNIT Q8 01/11 0600 AC 01/12 (Porcine) SC 1355 Metronidazole 500 MG IQ8 01/11 0030 AC 01/12 N/A 1 UNIT IV 1648 Tamsulosin HCl 0.4 MG DAILY 01/12 0900 AC PO Last 24 Hrs of Lab/Alan Results Last 24 Hrs of Labs/Mics: Laboratory Tests 01/12/18 0950: Anion Gap 13, Estimated GFR 19 L, BUN/Creatinine Ratio 20.9, CBC w Diff NO MAN DIFF REQ, RBC 3.83 L, MCV 76.1 L, MCH 24.2 L, MCHC 31.9 L, RDW 16.7 H, MPV 8.5, Gran % 83.1 H, Lymphocytes % 9.2 L, Monocytes % 7.6, Eosinophils % 0, Basophils % 0.1, Absolute Granulocytes 10.2 H, Absolute Lymphocytes 1.1 L, Absolute Monocytes 0.9 H, Absolute Eosinophils 0, Absolute Basophils 0 Assessment/Plan Assessment: 77-year-old man with past medical history of dementia, CAD status post CABG, hypertension, hyperlipidemia, PVD, aortic aneurysm, COPD on 2.0 L home O2, non- small cell lung cancer status post radiation, GERD, PUD, CAD, and nephrolithiasis seen for evaluation of fall, weakness, and back pain. Admitted for diverticulitis, JACQUELINE 1. Sepsis 2. Diverticulitis 3. Transaminitis 4. Acute kidney injury; probably secondary to obstructive disease. 5. 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 Chronic hypoxic respiratory failure 7. History of lung cancer. #Sepsis -On IV Rocephin 1g daily and Flagyl 500mg q8 -Stool for Cdiff and culture -Guaic all stools -GI Consulted -Supplemental O2 goal >92% #Diverticulitis -IV Flagyl, Ceftriaxone -D5 1/2NS @ 100mL/hr -GI Consult appreciated #Transaminitis -Hold statins #JACQUELINE -Urology consult appreciated -IVF #Chronic Hypoxic Respiratory Failure -O2 as needed, TRC DVT ppx IV access Full Code NPO pending GI note Problem List: 1. Diverticulitis Pain Ratin Pain Location: none Pain Goal: Pain 7 or less Pain Plan: pathway Tomorrow's Labs & Rationales: cbc Ismael Monson 01/12/18 1514: Attending MD Review Statement Attending Statement Attending MD Statement: examined this patient, discuss w/resident/PA/FITNESS ASSISTANT, agreed w/resident/PA/FITNESS ASSISTANT, discussed with family, reviewed EMR data (avail), discussed with nursing, discussed with case mgmt, reviewed images, amended to note Attending Assessment/Plan: Patient admiited here with sepsis like criteria and started on empiric ceftriaxone and falgyl for possible diverticultiis or UTI and JACQUELINE. Leukocytosis improved since admission however he developed hypernatremia. Patient calm, comfortable lying in bed. Vitals stable, afebrile. GI and urology consulted. Started on flomax. ID on board, c/w abx as per ID, f/u BLOOD CULTURES JACQUELINE with improvement Cr 3.2. C/w gentle hydration. Hypernatremia Na 150 2/2 dehydration and poor PO intake. Will switch fluids to D5 1/2 NS, frequent Na levels monitoring. Advance diet as tolerated. Reassess restarints , trial off restraints.
[2018-01-12 15:38] VITALS: BP 120/80
--- NOTE | 2018-01-12 18:05 | PN- Gastroenterology ---
Assessment/Plan GI Assessment/Recommendations: ASSESSMENT: 1. Sepsis 2. Anemia 3. Leukocytosis improving 4. Anemia, Acute Blood Loss 5. Constipation 6. Abnormal CT scan of the abdomen 7. Diverticulitis versus colitis in the setting of obstipation question stercoral ulceration 8. Obstructive uropathy with Acute Renal Failure 9. Question bladder mass per radiology will discuss with urology RECOMMENDATIONS: 1. Given patient's hypernatremia as well as hyponatremia and continued poor global clinical condition, including renal failure, do not feel the patient is stable for endoscopic workup at this time, nor do I feel endoscopic work up would contribute to therapuetic plan. 2. I had reviewed patient's CT scan with Dr. Butler, radiology, who felt patient had a bladder. mass. Will discuss with urology 3. Will defer endoscopic workup until more stable 4. Monitor for clinical and laboratory signs of ongoing GI blood loss. 5. Initial blood culture identified probable clostridium to her show him as gram-positive rods. A second blood culture revealed gram-positive cocci. ID is following patient; patient is afebrile on antibiotics; WBC have decreased. Subjective Subjective: Patient is resting comfortably. No complaints of nausea, vomiting, or abdominal pain. Was seen by urology who feels that nephrolithiasis and obstruction is chronic. Objective Vital Signs and I&Os Vital Signs Date Time Temp Pulse Resp B/P B/P Pulse O2 O2 Flow FiO2 Mean Ox Delivery Rate 01/12 1538 97.6 82 18 120/80 98 01/12 0857 122/82 01/12 0800 96 Nasal 2.0L Cannula 01/12 0620 97.5 79 20 144/70 96 Nasal 2.0L Cannula 01/12 0000 93 Nasal 2.0L Cannula 01/11 2223 98.6 82 20 168/86 96 Room Air 01/11 1914 Nasal 2.0L Cannula Intake & Output 01/12 1600 01/12 0400 01/11 1600 01/11 0400 01/10 1600 01/10 0400 Intake Total 8490 788 7160 Output Total 2950 1300 1400 700 Balance -1300 -900 -1400 1300 Intake, IV 3684 786 1476 Intake, Oral 0 0 Number 0 Bowel Movements Output, Urine 2950 1300 1400 700 Patient 174 lb 174 lb 180 lb Weight Weight Bed scale Bed scale Reported by Patient Measurement Method Physical Exam General Appearance: no apparent distress, comfortable Respiratory: quiet respiration, lungs clear Cardiovascular: normal S1 and S2, no rub, murmur, or gallop. Abdomen: normal bowel sounds, soft, non-tender, no organomegaly Neurologic/Psychiatric: disoriented x 3 Current Medications: Current Medications Sig/Edgardo Start time Last Medication Dose Route Stop Time Status Admin Acetaminophen 1,000 MG .STK-MED ONE 01/12 0249 DC IV 01/12 0250 Acetaminophen 1,000 MG Q6P PRN 01/11 0015 AC 01/12 IV 0251 Ceftriaxone Sodium 1,000 MG DAILY 01/11 0145 AC 01/12 IV 0858 Dextrose/Sodium 1,000 ML Q10H 01/12 1530 AC 01/12 Chloride IV 1530 Dextrose/Sodium 1,000 ML Q10H 01/11 0030 DC 01/12 Chloride IV 1423 Fluoxetine HCl 20 MG AT BEDTIME 01/11 2100 AC 01/11 PO 2110 Heparin Sodium 5,000 UNIT Q8 01/11 0600 AC 01/12 (Porcine) SC 1355 Metronidazole 500 MG IQ8 01/11 0030 01/12 N/A 1 UNIT IV 1648 Tamsulosin HCl 0.4 MG DAILY 01/12 0900 AC PO Results Pertinent Lab Results: Laboratory Tests 01/12 01/11 0950 0541 Chemistry Sodium (137 - 145 mmol/L) 150 H 142 Potassium (3.5 - 5.1 mmol/L) 3.3 L 4.0 Chloride (98 - 107 mmol/L) 115 H 107 Carbon Dioxide (22 - 30 mmol/L) 22 19 L Anion Gap (5 - 16) 13 15 BUN (9 - 20 mg/dL) 67 H 86 H Creatinine (0.7 - 1.2 mg/dL) 3.2 H 3.9 H Estimated GFR (>60 ml/min) 19 L 15 L BUN/Creatinine Ratio (7 - 25 %) 20.9 22.1 Magnesium (1.6 - 2.3 mg/dL) 2.2 Total Bilirubin (0.2 - 1.3 mg/dL) 0.2 Direct Bilirubin (< 0.4 mg/dL) 0.2 AST (17 - 59 U/L) 187 H ALT (21 - 72 U/L) 170 H Alkaline Phosphatase (< 127 U/L) 111 Total Protein (6.3 - 8.2 g/dL) 5.6 L Albumin (3.5 - 5.0 g/dL) 2.5 L Hematology CBC w Diff NO MAN DIFF REQ MAN DIFF ORDERED WBC (4.8 - 10.8 /CUMM) 12.3 H 18.3 H RBC (4.70 - 6.10 /CUMM) 3.83 L 3.76 L Hgb (14.0 - 18.0 G/DL) 9.3 L 9.1 L Hct (42 - 52 %) 29.2 L 28.6 L MCV (80.0 - 94.0 FL) 76.1 L 76.2 L MCH (27.0 - 31.0 PG) 24.2 L 24.1 L MCHC (33.0 - 37.0 G/DL) 31.9 L 31.7 L RDW (11.5 - 14.5 %) 16.7 H 16.0 H Plt Count (130 - 400 /CUMM) 336 313 MPV (7.4 - 10.4 FL) 8.5 8.7 Gran % (42.2 - 75.2 %) 83.1 H 86.8 H Lymphocytes % (20.5 - 51.1 %) 9.2 L 6.5 L Monocytes % (1.7 - 9.3 %) 7.6 6.7 Eosinophils % (0 - 5 %) 0 0 Basophils % (0.0 - 2.0 %) 0.1 0 Absolute Granulocytes (1.4 - 6.5 /CUMM) 10.2 H 15.9 H Segmented Neutrophils (42.2 - 75.2 %) 92 H Absolute Lymphocytes (1.2 - 3.4 /CUMM) 1.1 L 1.2 Lymphocytes (20.5 - 51.1 %) 6 L Monocytes (1.7 - 9.3 %) 2 Absolute Monocytes (0.10 - 0.60 /CUMM) 0.9 H 1.2 H Absolute Eosinophils (0.0 - 0.7 /CUMM) 0 0 Absolute Basophils (0.0 - 0.2 /CUMM) 0 0 Platelet Estimate (ADEQUATE) ADEQUATE Hypochromic-Microcytic 1+ Elliptocytes 1+ Serology Hepatitis A IgM Ab (NONREACTIVE) NONREACTIVE Hep Bs Antigen (NONREACTIVE) NONREACTIVE Hep B Core IgM Ab Conf (NONREACTIVE) NONREACTIVE Hepatitis C Antibody (NONREACTIVE) NONREACTIVE 01/11 01/11 01/10 0242 0008 2243 Chemistry Lactic Acid (0.7 - 2.1 mmol/L) 0.7 0.9 Urines Urinalysis HEAVY H Urine Color (YEL,AMB,STR) YEL Urine Clarity (CLEAR) CLEAR Urine pH (5.0 - 8.0) 6.0 Ur Specific Strandquist (1.001 - 1.035) 1.020 Urine Protein (NEG,<30 MG/DL) 30 H Urine Ketones (NEG) NEG Urine Nitrite (NEG) NEG Urine Bilirubin (NEG) NEG Urine Urobilinogen (0.1 - 1.0 EU/dl) 0.2 Ur Leukocyte Esterase (NEG) NEG Ur Microscopic SEDIMENT EXAMINED Urine RBC (0 - 5 /HPF) 50-75 H Urine WBC (0 - 2 /HPF) 3-5 H Urine Bacteria (NEG/NONE) FEW H Urine Mucus (FEW,NONE) FEW Urine Hemoglobin (NEG) LARGE H Urine Glucose (N MG/DL) NEG 01/10 01/10 01/10 1944 1823 1805 Chemistry Sodium (137 - 145 mmol/L) 138 Potassium (3.5 - 5.1 mmol/L) 4.4 Chloride (98 - 107 mmol/L) 102 Carbon Dioxide (22 - 30 mmol/L) 19 L Anion Gap (5 - 16) 17 H BUN (9 - 20 mg/dL) 89 H Creatinine (0.7 - 1.2 mg/dL) 4.0 H Estimated GFR (>60 ml/min) 15 L BUN/Creatinine Ratio (7 - 25 %) 22.3 Glucose (65 - 99 mg/dL) 126 H Lactic Acid (0.7 - 2.1 mmol/L) Cancelled 1.1 Calcium (8.4 - 10.2 mg/dL) 8.8 Total Bilirubin (0.2 - 1.3 mg/dL) 0.4 AST (17 - 59 U/L) 263 H ALT (21 - 72 U/L) 196 H Alkaline Phosphatase (< 127 U/L) 129 H Troponin I (<0.11 ng/ml) 0.02 Total Protein (6.3 - 8.2 g/dL) 6.1 L Albumin (3.5 - 5.0 g/dL) 2.7 L Globulin (1.9 - 4.2 gm/dL) 3.4 Albumin/Globulin Ratio (1.1 - 2.2 %) 0.8 L Hematology WBC (4.8 - 10.8 /CUMM) 16.5 H RBC (4.70 - 6.10 /CUMM) 4.15 L Hgb (14.0 - 18.0 G/DL) 9.9 L Hct (42 - 52 %) 31.6 L MCV (80.0 - 94.0 FL) 76.2 L MCH (27.0 - 31.0 PG) 23.9 L MCHC (33.0 - 37.0 G/DL) 31.4 L RDW (11.5 - 14.5 %) 16.3 H Plt Count (130 - 400 /CUMM) 345 MPV (7.4 - 10.4 FL) 8.9 Gran % (42.2 - 75.2 %) 87.3 H Lymphocytes % (20.5 - 51.1 %) 6.3 L Monocytes % (1.7 - 9.3 %) 6.3 Eosinophils % (0 - 5 %) 0.1 Basophils % (0.0 - 2.0 %) 0 Absolute Granulocytes (1.4 - 6.5 /CUMM) 14.4 H Absolute Lymphocytes (1.2 - 3.4 /CUMM) 1.0 L Absolute Monocytes (0.10 - 0.60 /CUMM) 1.0 H Absolute Eosinophils (0.0 - 0.7 /CUMM) 0 Absolute Basophils (0.0 - 0.2 /CUMM) 0
[2018-01-12 22:24] VITALS: BP 162/90
[2018-01-13 06:20] VITALS: BP 150/78
--- NOTE | 2018-01-13 08:01 | PN- Housestaff ---
See Addendum Subjective Follow-up For: Diverticulitis, transaminitis, [place] Subjective: Patient seen and examined at the bedside. Patient is demented at baseline, was nonverbal and sedated today. Per nursing, was aggressive on admission, but patient was sleeping comfortably today. Awoke to voice this morning, but minimally responsive. Did not refuse physical exam. Otherwise no acute events overnight. Review of Systems Constitutional: Reports: see HPI. Objective Last 24 Hrs of Vital Signs/I&O Vital Signs Date Time Temp Pulse Resp B/P B/P Pulse O2 O2 Flow FiO2 Mean Ox Delivery Rate 01/13 0620 97.8 60 20 150/78 92 Nasal Cannula 01/13 0000 Nasal 2.0L Cannula 01/12 2224 98.1 76 20 162/90 95 01/12 1538 97.6 82 18 120/80 98 Intake & Output 01/13 1600 01/13 0800 01/13 0000 Intake Total 800 400 Output Total 750 900 Balance 50 -500 Intake, IV 800 400 Intake, Oral 0 0 Number 0 Bowel Movements Output, Urine 750 900 Patient 173 lb Weight Weight Bed scale Measurement Method Physical Exam General Appearance: No Acute Distress, sleeping comfortably/sedated/wakes to name Skin: No Rashes, No Breakdown, No Significant Lesion Skin Temp/Moisture Exam: Warm/Dry HEENT: Atraumatic Neck: Supple, No thryomegaly Lymphatic: Axillary nl, Cervical nl Cardiovascular: Regular Rate, Normal S1, Normal S2, No Murmurs, Gallops, Rubs Lungs: Clear to Auscultation, Normal Air Movement Abdomen: Soft, No Tenderness Current Medications: Current Medications Sig/Edgardo Start time Last Medication Dose Route Stop Time Status Admin Acetaminophen 1,000 MG .STK-MED ONE 01/12 2047 DC IV 01/13 2048 Acetaminophen 1,000 MG Q6P PRN 01/11 0015 01/12 IV 204 Ceftriaxone Sodium 1,000 MG DAILY 01/11 0145 AC 01/13 IV 0818 Dextrose/Sodium 1,000 ML Q10H 01/12 1530 AC 01/13 Chloride IV 0307 Dextrose/Sodium 1,000 ML Q10H 01/11 0030 DC 01/12 Chloride IV 1423 Fluoxetine HCl 20 MG AT BEDTIME 01/11 2100 AC 01/12 PO 204 Haloperidol 0.5 MG Q6P PRN 01/13 1015 DC IM Haloperidol 0.5 MG Q6P PRN 01/13 1015 AC IM Heparin Sodium 5,000 UNIT Q8 01/11 0600 AC 01/13 (Porcine) SC 1309 Metronidazole 500 MG IQ8 01/11 0030 AC 01/13 N/A 1 UNIT IV 0815 Tamsulosin HCl 0.4 MG DAILY 01/12 0900 AC 01/13 PO 0817 Last 24 Hrs of Lab/Alan Results Last 24 Hrs of Labs/Mics: Laboratory Tests 01/13/18 0612: Anion Gap 17 H, Estimated GFR 20 L, BUN/Creatinine Ratio 21.7, CBC w Diff NO MAN DIFF REQ, RBC 4.15 L, MCV 76.3 L, MCH 24.4 L, MCHC 31.9 L, RDW 16.3 H, MPV 8.4, Gran % 80.4 H, Lymphocytes % 13.5 L, Monocytes % 5.7, Eosinophils % 0.2, Basophils % 0.2, Absolute Granulocytes 10.6 H, Absolute Lymphocytes 1.8, Absolute Monocytes 0.7 H, Absolute Eosinophils 0, Absolute Basophils 0 Microbiology 01/13 1002 BLOOD: Blood Culture - COLB 01/13 1002 BLOOD: Blood Culture - COLB Assessment/Plan Assessment: 77-year-old man with past medical history of dementia, CAD status post CABG, hypertension, hyperlipidemia, PVD, aortic aneurysm, COPD on 2.0 L home O2, non- small cell lung cancer status post radiation, GERD, PUD, CAD, and nephrolithiasis seen for evaluation of fall, weakness, and back pain. Admitted for diverticulitis, JACQUELINE 1. Sepsis 2. Diverticulitis 3. Transaminitis 4. Acute kidney injury; probably secondary to obstructive disease. 5. 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 Chronic hypoxic respiratory failure 7. History of lung cancer. #Sepsis -On IV Rocephin 1g daily and Flagyl 500mg q8 -Stool for Cdiff and culture -Guaic all stools -GI Consulted -Supplemental O2 goal >92% #Diverticulitis -IV Flagyl, Ceftriaxone -D5 1/2NS @ 100mL/hr -GI Consult appreciated #Transaminitis -Hold statins #JACQUELINE -Urology consult appreciated -IVF #Chronic Hypoxic Respiratory Failure -O2 as needed, TRC DVT ppx IV access Full Code Clear liquid diet Problem List: 1. Diverticulitis 2. JACQUELINE (acute kidney injury) Pain Ratin Pain Location: none Pain Goal: Remain pain free Pain Plan: PATHWAY Tomorrow's Labs & Rationales: tracy bep
[2018-01-13 08:49] LABS: ABSOLUTE BASOPHIL COUNT 0 /CUMM (0.0-0.2); ABSOLUTE EOSINOPHIL COUNT 0 /CUMM (0.0-0.7); ABSOLUTE GRANULOCYTE CT 10.6 /CUMM (1.4-6.5); ABSOLUTE LYMPH COUNT 1.8 /CUMM (1.2-3.4); ABSOLUTE MONOCYTE COUNT 0.7 /CUMM (0.10-0.60); BASOPHIL % 0.2 % (0.0-2.0); EOSINOPHIL % 0.2 % (0-5); GRANULOCYTE % 80.4 % (42.2-75.2); HEMATOCRIT 31.6 % (42-52); MEAN CORPUSCULAR HGB 24.4 PG (27.0-31.0); MEAN CORPUSCULAR HGB CONC 31.9 G/DL (33.0-37.0); MEAN CORPUSCULAR VOLUME 76.3 FL (80.0-94.0); MEAN PLATELET VOLUME 8.4 FL (7.4-10.4); PLATELET COUNT 402 /CUMM (130-400); RBC DISTRIBUTION WIDTH 16.3 % (11.5-14.5); RED BLOOD CELL CT 4.15 /CUMM (4.70-6.10); WHITE BLOOD CELL COUNT 13.2 /CUMM (4.8-10.8)
--- NOTE | 2018-01-13 09:01 | PN- Infect Dx ---
Subjective Subjective: Afebrile. He is unable to provide any history. Objective Last 24 Hrs of Vital Signs/I&O Vital Signs Date Time Temp Pulse Resp B/P B/P Pulse O2 O2 Flow FiO2 Mean Ox Delivery Rate 01/13 0620 97.8 60 20 150/78 92 Nasal Cannula 01/13 0000 Nasal 2.0L Cannula 01/12 2224 98.1 76 20 162/90 95 01/12 1538 97.6 82 18 120/80 98 01/12 0857 122/82 Intake & Output 01/13 1600 01/13 0800 01/13 0000 Intake Total 800 400 Output Total 750 900 Balance 50 -500 Intake, IV 800 400 Intake, Oral 0 0 Number 0 Bowel Movements Output, Urine 750 900 Patient 173 lb Weight Weight Bed scale Measurement Method Physical Exam Other Physical Findings: He is awake and alert in no apparent distress Lungs are clear Heart regular rhythm with no murmur Abdomen is mildly distended, possibly tender on palpation over the lower abdomen , both right and left lower quadrants, with positive bowel sounds Extremities no cyanosis, clubbing or edema Tan catheter remains in place Results Last 24 Hours of Lab Results: Laboratory Tests 01/13 01/12 0612 0950 Chemistry Sodium (137 - 145 mmol/L) 153 H 150 H Potassium (3.5 - 5.1 mmol/L) 3.8 3.3 L Chloride (98 - 107 mmol/L) 112 H 115 H Carbon Dioxide (22 - 30 mmol/L) 24 22 Anion Gap (5 - 16) 17 H 13 BUN (9 - 20 mg/dL) 65 H 67 H Creatinine (0.7 - 1.2 mg/dL) 3.0 H 3.2 H Estimated GFR (>60 ml/min) 20 L 19 L BUN/Creatinine Ratio (7 - 25 %) 21.7 20.9 Hematology CBC w Diff Pending NO MAN DIFF REQ WBC (4.8 - 10.8 /CUMM) Pending 12.3 H RBC (4.70 - 6.10 /CUMM) Pending 3.83 L Hgb (14.0 - 18.0 G/DL) Pending 9.3 L Hct (42 - 52 %) Pending 29.2 L MCV (80.0 - 94.0 FL) Pending 76.1 L MCH (27.0 - 31.0 PG) Pending 24.2 L MCHC (33.0 - 37.0 G/DL) Pending 31.9 L RDW (11.5 - 14.5 %) Pending 16.7 H Plt Count (130 - 400 /CUMM) Pending 336 MPV (7.4 - 10.4 FL) Pending 8.5 Gran % (42.2 - 75.2 %) 83.1 H Lymphocytes % (20.5 - 51.1 %) 9.2 L Monocytes % (1.7 - 9.3 %) 7.6 Eosinophils % (0 - 5 %) 0 Basophils % (0.0 - 2.0 %) 0.1 Absolute Granulocytes (1.4 - 6.5 /CUMM) 10.2 H Absolute Lymphocytes (1.2 - 3.4 /CUMM) 1.1 L Absolute Monocytes (0.10 - 0.60 /CUMM) 0.9 H Absolute Eosinophils (0.0 - 0.7 /CUMM) 0 Absolute Basophils (0.0 - 0.2 /CUMM) 0 Last 24 Hours of Alan Results: Blood culture x1 January 10 positive for Clostridium tertium Blood culture x1 January 11 positive for probable coag negative Staph Urine culture January 10 negative Assessment/Plan ID Impression: Stable, with temperatures remaining normal and white blood cell count yesterday decreased, on Ceftriaxone and Flagyl, Day 3 of treatment for diverticulitis of the proximal sigmoid colon, with one blood culture positive for Clostridium tertium. The other positive blood culture, for probable coag negative Staph, presumably represents a contaminant. His renal failure appears to be improving and is likely multifactorial, secondary to sepsis, urinary retention and the right ureteral stone, and Urology evaluation is appreciated. Suggestion: 1. Further management of his urinary tract per Urology 2. Continue Ceftriaxone and Flagyl Sharlene Jordan MD will be covering until January 16
--- NOTE | 2018-01-13 14:50 | PN- Gastroenterology ---
Assessment/Plan GI Assessment/Recommendations: ASSESSMENT: 1. Sepsis due to Clostridium tertium 2. Anemia -- H/H stable with out gross GI Blood Loss 3. Leukocytosis persists but patient is afebrile. Management of antibiotics per infectious diseases 4. Anemia, Acute Blood Loss 5. Constipation 6. Abnormal CT scan of the abdomen -- suggestive of diverticulitis without perforation or abscess 7. Acute Diverticulitis versus colitis in the setting of obstipation question stercoral ulceration 8. Obstructive uropathy with Acute Renal Failure RECOMMENDATIONS: 1. Treat hypernatremia 2. Will defer EGD/colonoscopy until patient more stable. 3. In the setting of acute diverticulitis would prefer that patient be treated adequately with antibiotics prior to performing colonoscopy. 4. Monitor for signs of GI blood loss 5. We will follow peripherally. Please do not hesitate to contact us if there is a change in this patient's clinical condition or when patient is more stable. Subjective Subjective: Patient is unable to provide any history. Appears to be resting comfortably. Is on day 3 of Flagyl and ceftriaxone for presumptive diverticulitis. Appreciate ID input. Patient has had increased urine output after relief of obstructive uropathy and now has residual hypernatremia. H/H is stable and WBC remain elevated. Objective Vital Signs and I&Os Vital Signs Date Time Temp Pulse Resp B/P B/P Pulse O2 O2 Flow FiO2 Mean Ox Delivery Rate 01/13 0620 97.8 60 20 150/78 92 Nasal Cannula 01/13 0000 Nasal 2.0L Cannula 01/12 2224 98.1 76 20 162/90 95 01/12 1538 97.6 82 18 120/80 98 Intake & Output 01/13 1600 01/13 0400 01/12 1600 01/12 0400 01/11 1600 01/11 0400 Intake Total 695 754 0328 400 2000 Output Total 256 184 4710 1300 1400 700 Balance 50 -500 -1300 -900 -1400 1300 Intake, IV 432 378 2527 400 2000 Intake, Oral 0 0 0 0 Number 0 0 Bowel Movements Output, Urine 581 002 0868 1300 1400 700 Patient 173 lb 174 lb 174 lb 180 lb Weight Weight Bed scale Bed scale Bed scale Reported by Patient Measurement Method He has had no gross GI blood loss. Physical Exam General Appearance: comfortable Respiratory: lungs clear Abdomen: normal bowel sounds, soft, non-tender Neurologic/Psychiatric: disoriented x 3 Skin: warm/dry Current Medications: Current Medications Sig/Edgardo Start time Last Medication Dose Route Stop Time Status Admin Acetaminophen 1,000 MG .STK-MED ONE 01/12 2047 DC IV 01/12 204 Acetaminophen 1,000 MG Q6P PRN 01/11 0015 AC 01/12 IV 2049 Ceftriaxone Sodium 1,000 MG DAILY 01/11 0145 AC 01/13 IV 0818 Dextrose/Sodium 1,000 ML Q10H 01/12 1530 01/13 Chloride IV 0307 Dextrose/Sodium 1,000 ML Q10H 01/11 0030 DC 01/12 Chloride IV 1423 Fluoxetine HCl 20 MG AT BEDTIME 01/11 2100 AC 01/12 PO 2045 Haloperidol 0.5 MG Q6P PRN 01/13 1015 DC IM Haloperidol 0.5 MG Q6P PRN 01/13 1015 AC IM Heparin Sodium 5,000 UNIT Q8 01/11 0600 AC 01/13 (Porcine) SC 1309 Metronidazole 500 MG IQ8 01/11 0030 01/13 N/A 1 UNIT IV 0815 Tamsulosin HCl 0.4 MG DAILY 01/12 0900 01/13 PO 0817 Results Pertinent Lab Results: Laboratory Tests 01/13 01/12 0612 0950 Chemistry Sodium (137 - 145 mmol/L) 153 H 150 H Potassium (3.5 - 5.1 mmol/L) 3.8 3.3 L Chloride (98 - 107 mmol/L) 112 H 115 H Carbon Dioxide (22 - 30 mmol/L) 24 22 Anion Gap (5 - 16) 17 H 13 BUN (9 - 20 mg/dL) 65 H 67 H Creatinine (0.7 - 1.2 mg/dL) 3.0 H 3.2 H Estimated GFR (>60 ml/min) 20 L 19 L BUN/Creatinine Ratio (7 - 25 %) 21.7 20.9 Hematology CBC w Diff NO MAN DIFF REQ NO MAN DIFF REQ WBC (4.8 - 10.8 /CUMM) 13.2 H 12.3 H RBC (4.70 - 6.10 /CUMM) 4.15 L 3.83 L Hgb (14.0 - 18.0 G/DL) 10.1 L 9.3 L Hct (42 - 52 %) 31.6 L 29.2 L MCV (80.0 - 94.0 FL) 76.3 L 76.1 L MCH (27.0 - 31.0 PG) 24.4 L 24.2 L MCHC (33.0 - 37.0 G/DL) 31.9 L 31.9 L RDW (11.5 - 14.5 %) 16.3 H 16.7 H Plt Count (130 - 400 /CUMM) 402 H 336 MPV (7.4 - 10.4 FL) 8.4 8.5 Gran % (42.2 - 75.2 %) 80.4 H 83.1 H Lymphocytes % (20.5 - 51.1 %) 13.5 L 9.2 L Monocytes % (1.7 - 9.3 %) 5.7 7.6 Eosinophils % (0 - 5 %) 0.2 0 Basophils % (0.0 - 2.0 %) 0.2 0.1 Absolute Granulocytes (1.4 - 6.5 /CUMM) 10.6 H 10.2 H Absolute Lymphocytes (1.2 - 3.4 /CUMM) 1.8 1.1 L Absolute Monocytes (0.10 - 0.60 /CUMM) 0.7 H 0.9 H Absolute Eosinophils (0.0 - 0.7 /CUMM) 0 0 Absolute Basophils (0.0 - 0.2 /CUMM) 0 0 01/11 01/11 01/11 0541 0242 0008 Chemistry Sodium (137 - 145 mmol/L) 142 Potassium (3.5 - 5.1 mmol/L) 4.0 Chloride (98 - 107 mmol/L) 107 Carbon Dioxide (22 - 30 mmol/L) 19 L Anion Gap (5 - 16) 15 BUN (9 - 20 mg/dL) 86 H Creatinine (0.7 - 1.2 mg/dL) 3.9 H Estimated GFR (>60 ml/min) 15 L BUN/Creatinine Ratio (7 - 25 %) 22.1 Lactic Acid (0.7 - 2.1 mmol/L) 0.7 0.9 Magnesium (1.6 - 2.3 mg/dL) 2.2 Total Bilirubin (0.2 - 1.3 mg/dL) 0.2 Direct Bilirubin (< 0.4 mg/dL) 0.2 AST (17 - 59 U/L) 187 H ALT (21 - 72 U/L) 170 H Alkaline Phosphatase (< 127 U/L) 111 Total Protein (6.3 - 8.2 g/dL) 5.6 L Albumin (3.5 - 5.0 g/dL) 2.5 L Hematology CBC w Diff MAN DIFF ORDERED WBC (4.8 - 10.8 /CUMM) 18.3 H RBC (4.70 - 6.10 /CUMM) 3.76 L Hgb (14.0 - 18.0 G/DL) 9.1 L Hct (42 - 52 %) 28.6 L MCV (80.0 - 94.0 FL) 76.2 L MCH (27.0 - 31.0 PG) 24.1 L MCHC (33.0 - 37.0 G/DL) 31.7 L RDW (11.5 - 14.5 %) 16.0 H Plt Count (130 - 400 /CUMM) 313 MPV (7.4 - 10.4 FL) 8.7 Gran % (42.2 - 75.2 %) 86.8 H Lymphocytes % (20.5 - 51.1 %) 6.5 L Monocytes % (1.7 - 9.3 %) 6.7 Eosinophils % (0 - 5 %) 0 Basophils % (0.0 - 2.0 %) 0 Absolute Granulocytes (1.4 - 6.5 /CUMM) 15.9 H Segmented Neutrophils (42.2 - 75.2 %) 92 H Absolute Lymphocytes (1.2 - 3.4 /CUMM) 1.2 Lymphocytes (20.5 - 51.1 %) 6 L Monocytes (1.7 - 9.3 %) 2 Absolute Monocytes (0.10 - 0.60 /CUMM) 1.2 H Absolute Eosinophils (0.0 - 0.7 /CUMM) 0 Absolute Basophils (0.0 - 0.2 /CUMM) 0 Platelet Estimate (ADEQUATE) ADEQUATE Hypochromic-Microcytic 1+ Elliptocytes 1+ Serology Hepatitis A IgM Ab (NONREACTIVE) NONREACTIVE Hep Bs Antigen (NONREACTIVE) NONREACTIVE Hep B Core IgM Ab Conf (NONREACTIVE) NONREACTIVE Hepatitis C Antibody (NONREACTIVE) NONREACTIVE 01/10 01/10 01/10 7246 6781 0460 Chemistry Lactic Acid Cancelled Hematology WBC (4.8 - 10.8 /CUMM) 16.5 H RBC (4.70 - 6.10 /CUMM) 4.15 L Hgb (14.0 - 18.0 G/DL) 9.9 L Hct (42 - 52 %) 31.6 L MCV (80.0 - 94.0 FL) 76.2 L MCH (27.0 - 31.0 PG) 23.9 L MCHC (33.0 - 37.0 G/DL) 31.4 L RDW (11.5 - 14.5 %) 16.3 H Plt Count (130 - 400 /CUMM) 345 MPV (7.4 - 10.4 FL) 8.9 Gran % (42.2 - 75.2 %) 87.3 H Lymphocytes % (20.5 - 51.1 %) 6.3 L Monocytes % (1.7 - 9.3 %) 6.3 Eosinophils % (0 - 5 %) 0.1 Basophils % (0.0 - 2.0 %) 0 Absolute Granulocytes (1.4 - 6.5 /CUMM) 14.4 H Absolute Lymphocytes (1.2 - 3.4 /CUMM) 1.0 L Absolute Monocytes (0.10 - 0.60 /CUMM) 1.0 H Absolute Eosinophils (0.0 - 0.7 /CUMM) 0 Absolute Basophils (0.0 - 0.2 /CUMM) 0 Urines Urinalysis HEAVY H Urine Color (YEL,AMB,STR) YEL Urine Clarity (CLEAR) CLEAR Urine pH (5.0 - 8.0) 6.0 Ur Specific [place] (1.001 - 1.035) 1.020 Urine Protein (NEG,<30 MG/DL) 30 H Urine Ketones (NEG) NEG Urine Nitrite (NEG) NEG Urine Bilirubin (NEG) NEG Urine Urobilinogen (0.1 - 1.0 EU/dl) 0.2 Ur Leukocyte Esterase (NEG) NEG Ur Microscopic SEDIMENT EXAMINED Urine RBC (0 - 5 /HPF) 50-75 H Urine WBC (0 - 2 /HPF) 3-5 H Urine Bacteria (NEG/NONE) FEW H Urine Mucus (FEW,NONE) FEW Urine Hemoglobin (NEG) LARGE H Urine Glucose (N MG/DL) NEG 01/10 1805 Chemistry Sodium (137 - 145 mmol/L) 138 Potassium (3.5 - 5.1 mmol/L) 4.4 Chloride (98 - 107 mmol/L) 102 Carbon Dioxide (22 - 30 mmol/L) 19 L Anion Gap (5 - 16) 17 H BUN (9 - 20 mg/dL) 89 H Creatinine (0.7 - 1.2 mg/dL) 4.0 H Estimated GFR (>60 ml/min) 15 L BUN/Creatinine Ratio (7 - 25 %) 22.3 Glucose (65 - 99 mg/dL) 126 H Lactic Acid (0.7 - 2.1 mmol/L) 1.1 Calcium (8.4 - 10.2 mg/dL) 8.8 Total Bilirubin (0.2 - 1.3 mg/dL) 0.4 AST (17 - 59 U/L) 263 H ALT (21 - 72 U/L) 196 H Alkaline Phosphatase (< 127 U/L) 129 H Troponin I (<0.11 ng/ml) 0.02 Total Protein (6.3 - 8.2 g/dL) 6.1 L Albumin (3.5 - 5.0 g/dL) 2.7 L Globulin (1.9 - 4.2 gm/dL) 3.4 Albumin/Globulin Ratio (1.1 - 2.2 %) 0.8 L
[2018-01-13 15:53] VITALS: BP 150/90
[2018-01-13 22:14] VITALS: BP 122/80
[2018-01-14 06:04] VITALS: BP 112/74
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
[2018-01-14 09:26] LABS: ABSOLUTE BASOPHIL COUNT 0 /CUMM (0.0-0.2); ABSOLUTE EOSINOPHIL COUNT 0 /CUMM (0.0-0.7); ABSOLUTE GRANULOCYTE CT 9.1 /CUMM (1.4-6.5); ABSOLUTE LYMPH COUNT 1.6 /CUMM (1.2-3.4); ABSOLUTE MONOCYTE COUNT 0.8 /CUMM (0.10-0.60); BASOPHIL % 0.4 % (0.0-2.0); EOSINOPHIL % 0.3 % (0-5); GRANULOCYTE % 78.6 % (42.2-75.2); HEMATOCRIT 29.6 % (42-52); MEAN CORPUSCULAR HGB 24.1 PG (27.0-31.0); MEAN CORPUSCULAR HGB CONC 31.8 G/DL (33.0-37.0); MEAN CORPUSCULAR VOLUME 75.8 FL (80.0-94.0); MEAN PLATELET VOLUME 8.3 FL (7.4-10.4); PLATELET COUNT 391 /CUMM (130-400); RBC DISTRIBUTION WIDTH 16.2 % (11.5-14.5); RED BLOOD CELL CT 3.91 /CUMM (4.70-6.10); WHITE BLOOD CELL COUNT 11.5 /CUMM (4.8-10.8)
[2018-01-14 14:19] VITALS: BP 120/90
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
--- NOTE | 2018-01-14 16:33 | PN- Urology ---
Subjective Subjective: Resting quietly Objective Vital Signs and I&Os Vital Signs Date Time Temp Pulse Resp B/P B/P Pulse O2 O2 Flow FiO2 Mean Ox Delivery Rate 01/14 1600 Nasal 2.0L Cannula 01/14 1419 98.2 89 20 120/90 99 Room Air 01/14 0835 112/74 01/14 0800 95 Nasal 2.0L Cannula 01/14 0604 98.1 75 20 112/74 96 Nasal Cannula 01/14 0000 Nasal 2.0L Cannula 01/13 2214 96.5 79 20 122/80 98 Nasal Cannula Intake & Output 01/14 1600 01/14 0800 01/14 0000 01/13 1600 01/13 0800 01/13 0000 Intake Total 1700 0 1475 800 400 Output Total 400 9373 968 4942 750 900 Balance -400 700 -550 -25 50 -500 Intake, IV 1200 1275 800 400 Intake, Oral 500 0 200 0 0 Number 0 0 Bowel Movements Output, Urine 400 8860 744 8734 750 900 Patient 173 lb Weight Weight Bed scale Measurement Method Abd: soft and non tender Genitalia: ayala in place draining clear urine Laboratory Tests 01/14 01/13 0815 1800 Chemistry Sodium (137 - 145 mmol/L) 146 H 147 H Potassium (3.5 - 5.1 mmol/L) 3.4 L 3.4 L Chloride (98 - 107 mmol/L) 108 H 111 H Carbon Dioxide (22 - 30 mmol/L) 26 25 Anion Gap (5 - 16) 12 11 BUN (9 - 20 mg/dL) 48 H 59 H Creatinine (0.7 - 1.2 mg/dL) 2.3 H 2.6 H Estimated GFR (>60 ml/min) 28 L 24 L BUN/Creatinine Ratio (7 - 25 %) 20.9 22.7 Hematology CBC w Diff NO MAN DIFF REQ WBC (4.8 - 10.8 /CUMM) 11.5 H RBC (4.70 - 6.10 /CUMM) 3.91 L Hgb (14.0 - 18.0 G/DL) 9.4 L Hct (42 - 52 %) 29.6 L MCV (80.0 - 94.0 FL) 75.8 L MCH (27.0 - 31.0 PG) 24.1 L MCHC (33.0 - 37.0 G/DL) 31.8 L RDW (11.5 - 14.5 %) 16.2 H Plt Count (130 - 400 /CUMM) 391 MPV (7.4 - 10.4 FL) 8.3 Gran % (42.2 - 75.2 %) 78.6 H Lymphocytes % (20.5 - 51.1 %) 13.6 L Monocytes % (1.7 - 9.3 %) 7.1 Eosinophils % (0 - 5 %) 0.3 Basophils % (0.0 - 2.0 %) 0.4 Absolute Granulocytes (1.4 - 6.5 /CUMM) 9.1 H Absolute Lymphocytes (1.2 - 3.4 /CUMM) 1.6 Absolute Monocytes (0.10 - 0.60 /CUMM) 0.8 H Absolute Eosinophils (0.0 - 0.7 /CUMM) 0 Absolute Basophils (0.0 - 0.2 /CUMM) 0 Creatinine continues to improve spontaneously Addendum to CT scan shows small mass in bladder. Images reviewed Assessment/Plan Assessment/Plan Imp: 1. R UVJ stone, 1 mm, with some hydro. Renal fxn continues to improve 2. Small bladder mass on CT scan 3. Diverticulitis 4. Multiple medical issues Plan: 1. If family chooses to pursue this will need cysto as inpatient or more likely as outpatient. 2. Continue to follow renal fxn
--- NOTE | 2018-01-14 17:59 | PN- Gastroenterology ---
Assessment/Plan GI Assessment/Recommendations: ASSESSMENT: 1. Sepsis due to Clostridium tertium. Antibiotics per I.D. 2. Anemia -- H/H stable without gross GI Blood Loss 3. Abnormal CT scan of the abdomen -- suggestive of diverticulitis without perforation or abscess 4. Acute Diverticulitis versus colitis in the setting of obstipation question stercoral ulceration 5. Obstructive uropathy with Acute Renal Failure 6. Bladder Mass on CT -- ? outpatient cystography 7. Hypernatremia -- decreasing gradually RECOMMENDATIONS: 1. Treat hypernatremia 2. Will defer EGD/colonoscopy until patient more stable. 3. In the setting of acute diverticulitis would prefer that patient be treated adequately with antibiotics prior to performing colonoscopy. 4. Monitor for signs of GI blood loss 5. I've had a discussion with the patient's daughter regarding the indications for upper endoscopy and colonoscopy. I've explained to her that these tests are design to look for sources of GI blood loss and to make sure that patient does not have underlying malignancy. She has expressed her understanding of this but this time does not want either EGD or colonoscopy. She is told me she will reconsider these procedures when her father is doing better. 6. GI will sign off for now. Please do not hesitate to contact us if there is a change in this patient's clinical condition or when patient's daughter is agreeable to endoscopic evaluation. Subjective Subjective: Patient is more alert. He is yellowing for water. Daughter is at bedside. I have discussed with patient's daughter that I'm a railroad track inspector and I was called to see patient for evaluation of diarrhea, acute diverticulitis, and anemia. I have explained that patient has been too unstable for evaluation with EGD and or colonoscopy. However patient has been doing much better. Objective Vital Signs and I&Os Vital Signs Date Time Temp Pulse Resp B/P B/P Pulse O2 O2 Flow FiO2 Mean Ox Delivery Rate 01/14 1600 Nasal 2.0L Cannula 01/14 1419 98.2 89 20 120/90 99 Room Air 01/14 0835 112/74 01/14 0800 95 Nasal 2.0L Cannula 01/14 0604 98.1 75 20 112/74 96 Nasal Cannula 01/14 0000 Nasal 2.0L Cannula 01/13 2214 96.5 79 20 122/80 98 Nasal Cannula Intake & Output 01/14 1600 01/14 0400 01/13 1600 01/13 0400 01/12 1600 01/12 0400 Intake Total 1700 0 2275 400 1650 400 Output Total 5121 801 9815 900 2950 1300 Balance 300 -550 25 -500 -1300 -900 Intake, IV 1200 2075 400 1650 400 Intake, Oral 500 0 200 0 0 0 Number 0 0 0 Bowel Movements Output, Urine 0618 336 4583 900 2950 1300 Patient 173 lb 174 lb Weight Weight Bed scale Bed scale Measurement Method Physical Exam General Appearance: alert, awake Respiratory: lungs clear Cardiovascular: regular rate/rhythm Abdomen: normal bowel sounds, soft, non-tender, no organomegaly Neurologic/Psychiatric: disoriented x 3 Skin: intact, normal color, warm/dry Current Medications: Current Medications Sig/Edgardo Start time Last Medication Dose Route Stop Time Status Admin Acetaminophen 1,000 MG Q6P PRN 01/11 0015 AC 01/12 IV 2049 Ceftriaxone Sodium 1,000 MG DAILY 01/11 0145 AC 01/14 IV 0834 Dextrose/Sodium 1,000 ML Q10H 01/12 1530 AC 01/14 Chloride IV 1036 Fluoxetine HCl 20 MG AT BEDTIME 01/11 2100 AC 01/12 PO 2045 Haloperidol 0.5 MG Q6P PRN 01/13 1015 AC IM Heparin Sodium 5,000 UNIT Q8 01/11 0600 AC 01/14 (Porcine) SC 1416 Metronidazole 500 MG IQ8 01/11 0030 AC 01/14 N/A 1 UNIT IV 1617 Patient Medication 1 ED ONE ONE 01/14 1300 DC 01/14 Teaching ED 01/14 1301 1416 Tamsulosin HCl 0.4 MG DAILY 01/12 0900 AC 01/14 PO 0835 Results Pertinent Lab Results: Laboratory Tests 01/14 01/13 0815 1800 Chemistry Sodium (137 - 145 mmol/L) 146 H 147 H Potassium (3.5 - 5.1 mmol/L) 3.4 L 3.4 L Chloride (98 - 107 mmol/L) 108 H 111 H Carbon Dioxide (22 - 30 mmol/L) 26 25 Anion Gap (5 - 16) 12 11 BUN (9 - 20 mg/dL) 48 H 59 H Creatinine (0.7 - 1.2 mg/dL) 2.3 H 2.6 H Estimated GFR (>60 ml/min) 28 L 24 L BUN/Creatinine Ratio (7 - 25 %) 20.9 22.7 Hematology CBC w Diff NO MAN DIFF REQ WBC (4.8 - 10.8 /CUMM) 11.5 H RBC (4.70 - 6.10 /CUMM) 3.91 L Hgb (14.0 - 18.0 G/DL) 9.4 L Hct (42 - 52 %) 29.6 L MCV (80.0 - 94.0 FL) 75.8 L MCH (27.0 - 31.0 PG) 24.1 L MCHC (33.0 - 37.0 G/DL) 31.8 L RDW (11.5 - 14.5 %) 16.2 H Plt Count (130 - 400 /CUMM) 391 MPV (7.4 - 10.4 FL) 8.3 Gran % (42.2 - 75.2 %) 78.6 H Lymphocytes % (20.5 - 51.1 %) 13.6 L Monocytes % (1.7 - 9.3 %) 7.1 Eosinophils % (0 - 5 %) 0.3 Basophils % (0.0 - 2.0 %) 0.4 Absolute Granulocytes (1.4 - 6.5 /CUMM) 9.1 H Absolute Lymphocytes (1.2 - 3.4 /CUMM) 1.6 Absolute Monocytes (0.10 - 0.60 /CUMM) 0.8 H Absolute Eosinophils (0.0 - 0.7 /CUMM) 0 Absolute Basophils (0.0 - 0.2 /CUMM) 0 01/13 01/12 0612 0950 Chemistry Sodium (137 - 145 mmol/L) 153 H 150 H Potassium (3.5 - 5.1 mmol/L) 3.8 3.3 L Chloride (98 - 107 mmol/L) 112 H 115 H Carbon Dioxide (22 - 30 mmol/L) 24 22 Anion Gap (5 - 16) 17 H 13 BUN (9 - 20 mg/dL) 65 H 67 H Creatinine (0.7 - 1.2 mg/dL) 3.0 H 3.2 H Estimated GFR (>60 ml/min) 20 L 19 L BUN/Creatinine Ratio (7 - 25 %) 21.7 20.9 Hematology CBC w Diff NO MAN DIFF REQ NO MAN DIFF REQ WBC (4.8 - 10.8 /CUMM) 13.2 H 12.3 H RBC (4.70 - 6.10 /CUMM) 4.15 L 3.83 L Hgb (14.0 - 18.0 G/DL) 10.1 L 9.3 L Hct (42 - 52 %) 31.6 L 29.2 L MCV (80.0 - 94.0 FL) 76.3 L 76.1 L MCH (27.0 - 31.0 PG) 24.4 L 24.2 L MCHC (33.0 - 37.0 G/DL) 31.9 L 31.9 L RDW (11.5 - 14.5 %) 16.3 H 16.7 H Plt Count (130 - 400 /CUMM) 402 H 336 MPV (7.4 - 10.4 FL) 8.4 8.5 Gran % (42.2 - 75.2 %) 80.4 H 83.1 H Lymphocytes % (20.5 - 51.1 %) 13.5 L 9.2 L Monocytes % (1.7 - 9.3 %) 5.7 7.6 Eosinophils % (0 - 5 %) 0.2 0 Basophils % (0.0 - 2.0 %) 0.2 0.1 Absolute Granulocytes (1.4 - 6.5 /CUMM) 10.6 H 10.2 H Absolute Lymphocytes (1.2 - 3.4 /CUMM) 1.8 1.1 L Absolute Monocytes (0.10 - 0.60 /CUMM) 0.7 H 0.9 H Absolute Eosinophils (0.0 - 0.7 /CUMM) 0 0 Absolute Basophils (0.0 - 0.2 /CUMM) 0 0
[2018-01-14 22:37] VITALS: BP 118/88
[2018-01-15 06:20] VITALS: BP 138/90
[2018-01-15 08:47] LABS: ABSOLUTE BASOPHIL COUNT 0 /CUMM (0.0-0.2); ABSOLUTE EOSINOPHIL COUNT 0.1 /CUMM (0.0-0.7); ABSOLUTE GRANULOCYTE CT 6.5 /CUMM (1.4-6.5); ABSOLUTE LYMPH COUNT 1.7 /CUMM (1.2-3.4); ABSOLUTE MONOCYTE COUNT 0.9 /CUMM (0.10-0.60); BASOPHIL % 0.4 % (0.0-2.0); EOSINOPHIL % 1.1 % (0-5); GRANULOCYTE % 70.5 % (42.2-75.2); HEMATOCRIT 30.4 % (42-52); MEAN CORPUSCULAR HGB 24.1 PG (27.0-31.0); MEAN CORPUSCULAR HGB CONC 31.8 G/DL (33.0-37.0); MEAN CORPUSCULAR VOLUME 75.7 FL (80.0-94.0); MEAN PLATELET VOLUME 8.2 FL (7.4-10.4); PLATELET COUNT 348 /CUMM (130-400); RBC DISTRIBUTION WIDTH 15.9 % (11.5-14.5); RED BLOOD CELL CT 4.02 /CUMM (4.70-6.10); WHITE BLOOD CELL COUNT 9.2 /CUMM (4.8-10.8)
--- NOTE | 2018-01-15 11:10 | PN- Housestaff ---
Pascale Martínez 01/15/18 1109: Subjective Follow-up For: diverticulitis, transaminitis and JACQUELINE Subjective: Patient examined at bedside. He is minimally arousable to even painful stimuli. However, the patient opened his eyes and told the nurse to put "put him back up " when the nurse was in to recline his bed. He did not answer any more questions and was not cooperative with the examination. Review of Systems Constitutional: Reports: see HPI. Objective Last 24 Hrs of Vital Signs/I&O Vital Signs Date Time Temp Pulse Resp B/P B/P Pulse O2 O2 Flow FiO2 Mean Ox Delivery Rate 01/18 1423 97.5 92 20 98/60 96 / 0841 95 100/60 01/18 0800 95 Nasal 3.0L Cannula 01/18 0638 98.6 77 20 110/60 97 / 0000 Nasal 3.0L Cannula Intake & Output 01/18 1600 / 0800 08/ 0000 Intake Total 189 911 3974 Output Total Balance 832 279 5799 Intake, IV 700 900 800 Intake, Oral 200 300 Number 2 Bowel Movements Physical Exam General Appearance: non arousable. gets agitated when touched Skin: No Rashes, No Breakdown Cardiovascular: refused exmamination Lungs: refused examination Abdomen: refused examination Assessment/Plan Assessment: 77-year-old man with past medical history of dementia, CAD status post CABG, hypertension, hyperlipidemia, PVD, aortic aneurysm, COPD on 2.0 L home O2, non- small cell lung cancer status post radiation, GERD, PUD, CAD, and nephrolithiasis seen for evaluation of fall, weakness, and back pain. Admitted for diverticulitis, JACQUELINE on CKD3 Problem List 1. Sepsis 2. Diverticulitis 3. Transaminitis 4. Acute kidney injury; probably secondary to obstructive disease. 5. 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 Chronic hypoxic respiratory failure 7. History of lung cancer. 1.Sepsis -On IV Rocephin 1g daily and Flagyl 500mg q8 day 6 -Blood Cultures positive for coag neg staph, clostridium tertium. Second set of cultures positive for gram-positive cocci in clusters -Patient is afebrile. No leukocytosis -Guaic all stools -GI Consulted, will hold off on any interventions until patient more stable -Supplemental O2 goal >92% 2. Diverticulitis -IV Flagyl, Ceftriaxone day 6 - -GI Consult appreciated - no interventions until patient stable 3.Transaminitis -Hold statins 4.JACQUELINE - improving -Tan in place -Urology consult requested. Will follow recommendations. 5.Chronic Hypoxic Respiratory Failure -O2 as needed, TRC PT evalaution in the am DVT ppx IV access Full Code Problem List: 1. Transaminitis 2. Diverticulitis Pain Ratin Pain Location: na Pain Goal: Pain 4 or less Pain Plan: na Tomorrow's Labs & Rationales: cbc with bep Ismael Monson 01/15/18 1406: Attending MD Review Statement Attending Statement Attending MD Statement: examined this patient, discuss w/resident/PA/MOVIE MACHINE OPERATOR, agreed w/resident/PA/MOVIE MACHINE OPERATOR, discussed with family, reviewed EMR data (avail), discussed with nursing, discussed with case mgmt, reviewed images, amended to note Attending Assessment/Plan: Patient admitted here with sepsis like criteria and started on empiric ceftriaxone and falgyl for possible diverticultiis and JACQUELINE with nephrolithiasis. Leukocytosis improved since admission. Hypernatremia also improved. Labs and imaging noted. Na 144 WBC 9 GI and urology on board. c/w flomax. ID on board, c/w abx D5 as per ID, f/u BLOOD CULTURES suggestive of clostridium. JACQUELINE with improvement Cr 3.0>>2.6>>1.9 Hypernatremia with improvement: c/w D5 1/2 NS, Encourage PO intake which he is not coperative. Nurse bedside tried multiple times and he refuses to eat. Asked pyshciatry to evalaute and [facility] recommend to start low dose risperidone. Diet: clear liquids, Advance diet as tolerated. gi/dvt prophyalxis full code.
--- NOTE | 2018-01-15 12:27 | PN- Infect Dx ---
Subjective Subjective: No fever or abd pain. Patient w/o new complaints, cooperative during the exam. Review of Systems Comments: 12 points reviewed as noted, otherwise negative. Objective Last 24 Hrs of Vital Signs/I&O Vital Signs Date Time Temp Pulse Resp B/P B/P Pulse O2 O2 Flow FiO2 Mean Ox Delivery Rate 01/15 0800 Nasal 2.0L Cannula 01/15 0800 98.6 87 18 138/90 01/15 0620 98.6 87 18 138/90 98 Nasal Cannula 01/15 0000 98 Nasal 2.0L Cannula 01/14 2237 97.8 82 18 118/88 98 01/14 1600 Nasal 2.0L Cannula 01/14 1419 98.2 89 20 120/90 99 Room Air Intake & Output 01/15 1600 01/15 0800 01/15 0000 Intake Total 1200 1800 Output Total 1300 2650 Balance -100 -850 Intake, IV 1200 1200 Intake, Oral 600 Number 0 Bowel Movements Output, Urine 1300 2650 Patient 171 lb Weight Weight Bed scale Measurement Method Physical Exam Other Physical Findings: Gen: awake and alert in no apparent distress Lungs are clear Heart regular rhythm with no murmur Abdomen is mildly distended, soft, NT Extremities no cyanosis, clubbing or edema Tan catheter remains in place Results Last 24 Hours of Lab Results: Laboratory Tests 01/15 0647 Chemistry Sodium (137 - 145 mmol/L) 144 Potassium (3.5 - 5.1 mmol/L) 3.1 L Chloride (98 - 107 mmol/L) 103 Carbon Dioxide (22 - 30 mmol/L) 28 Anion Gap (5 - 16) 13 BUN (9 - 20 mg/dL) 30 H Creatinine (0.7 - 1.2 mg/dL) 1.9 H Estimated GFR (>60 ml/min) 34 L BUN/Creatinine Ratio (7 - 25 %) 15.8 Hematology CBC w Diff NO MAN DIFF REQ WBC (4.8 - 10.8 /CUMM) 9.2 RBC (4.70 - 6.10 /CUMM) 4.02 L Hgb (14.0 - 18.0 G/DL) 9.7 L Hct (42 - 52 %) 30.4 L MCV (80.0 - 94.0 FL) 75.7 L MCH (27.0 - 31.0 PG) 24.1 L MCHC (33.0 - 37.0 G/DL) 31.8 L RDW (11.5 - 14.5 %) 15.9 H Plt Count (130 - 400 /CUMM) 348 MPV (7.4 - 10.4 FL) 8.2 Gran % (42.2 - 75.2 %) 70.5 Lymphocytes % (20.5 - 51.1 %) 18.4 L Monocytes % (1.7 - 9.3 %) 9.6 H Eosinophils % (0 - 5 %) 1.1 Basophils % (0.0 - 2.0 %) 0.4 Absolute Granulocytes (1.4 - 6.5 /CUMM) 6.5 Absolute Lymphocytes (1.2 - 3.4 /CUMM) 1.7 Absolute Monocytes (0.10 - 0.60 /CUMM) 0.9 H Absolute Eosinophils (0.0 - 0.7 /CUMM) 0.1 Absolute Basophils (0.0 - 0.2 /CUMM) 0 Last 24 Hours of Alan Results: reviewed Recent Imaging Studies: reviewed Assessment/Plan ID Impression: 77-year-old man with dementia, coronary artery disease, status post CABG, hypertension, aortic aneurysm, peripheral vascular disease, COPD, maintained on 2 L of oxygen, non-small cell lung cancer, status post radiation, peptic ulcer disease and nephrolithiasis, hospitalized over 3 years prior to admission with diverticulitis and 1-1/2 years prior to admission with a COPD exacerbation/ pneumonia, admitted on January 10 with back pain, weakness and decreased p.o. intake following a fall 2 days earlier. On admission he was febrile and had abnl blood work (leukocytosis/elevated creatinine (JACQUELINE). Stable, with temperatures remaining normal and white blood cell count yesterday decreased, on Ceftriaxone and Flagyl, Day 5/7-10 of treatment for diverticulitis of the proximal sigmoid colon, with one blood culture positive for Clostridium tertium. The other positive blood culture, for probable coag negative Staph, presumably represents a contaminant. His renal failure appears to be improving and is likely multifactorial, secondary to sepsis, urinary retention and the right ureteral stone. Suggestion: 1. Further management of his urinary tract per Urology 2. Continue Ceftriaxone and Flagyl started 01/11. 3. Monitor CBC, BMP. 4. Aspiration precautions.
[2018-01-15 14:09] VITALS: BP 120/80
--- NOTE | 2018-01-15 14:46 | Cons- Psychiatry ---
Psychiatric Consult Date of Consult: 01/15/18 Reason for Consult: Management of delirium History of Present Illness: This 77-year-old male was brought to the emergency room on January 10 for evaluation of weakness, fall and back pain. Background history significant for dementia, CAD status post CABG, hypertension, hyperlipidemia, PVD, aortic aneurysm, non-small cell lung cancer status post radiation, GERD, PUD, CKD and nephrolithiasis, COPD on 2 L of home O2. Records indicate that the patient had an admission here from September 01- of this year for evaluation of similar complaints and was found to have a right upper lobe postobstructive pneumonia which responded to treatment with antibiotics. Since admission the patient has been intermittently agitated and aggressive. He has been disoriented and appears to have been responding to internal stimuli. His symptoms of increased to the degree where he is refusing to eat or to participate in his treatment. Allergies: Coded Allergies: lisinopril (Severe, LIP/TONGUE SWELLING 02/18/16) Current Medications: Med Acetaminophen 1,000 MG IV Q6P PRN 01/11/18 0015 Ceftriaxone Sodium 1,000 MG IV DAILY 01/11/18 0145 Dextrose/Sodium Chloride 1,000 ML IV Q10H 01/12/18 1530 Fluoxetine HCl 20 MG PO AT BEDTIME 01/11/18 2100 Haloperidol 0.5 MG IM Q6P PRN 01/13/18 1015 Heparin Sodium (Porcine) 5,000 UNIT SC Q8 01/11/18 0600 Metronidazole 500 MG IV IQ8 01/11/18 0030 N/A 1 UNIT Tamsulosin HCl 0.4 MG PO DAILY 01/12/18 0900 Past History Past Medical History Any Pertinent Medical History? 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), dementia EENT: NONE Cardiovascular: aortic aneurysm, CAD ( s/p CABG), hypertension, hyperlipidemia, PVD, carotid disease Respiratory: COPD ( - on 2L of O2), stage 3 nonsmall cell lung cancer s/p radiation Gastrointestinal: GERD, peptic ulcer disease Hepatic: NONE Renal: chronic kidney disease, nephrolithiasis Musculoskeletal: NONE Psychiatric: NONE Endocrine: NONE Blood Disorders: NONE Cancer(s): lung cancer PICKING TECH/Reproductive: NONE Past Surgical History Surgical History: non-contributory Psychiatric Treatment History Diagnosis: Please see PPH above Assessment/Plan Mental Status Mental Status Exam: Patient encountered lying calmly in his hospital bed. Turned in response to his name being called but refused to answer any questions. He was alert with no signs of agitation. He was aware of my presence. Did not appear to be making any attempts to speak to me. Unable to assess thought process. No perceptual abnormality noted. Unable to assess cognition. Insight is poor and judgment impaired. Lab Results: Lab AST 263 U/L H 01/10/18 1805 AST 187 U/L H 01/11/18 0541 Anion Gap 13 01/15/18 0647 BUN 30 mg/dL H 01/15/18 0647 Carbon Dioxide 28 mmol/L 01/15/18 0647 Chloride 103 mmol/L 01/15/18 0647 Creatinine 1.9 mg/dL H 01/15/18 0647 Potassium 3.1 mmol/L L 01/15/18 0647 Sodium 144 mmol/L 01/15/18 0647 Hct 30.4 % L 01/15/18 0647 Hgb 9.7 G/DL L 01/15/18 0647 MCH 24.1 PG L 01/15/18 0647 MCHC 31.8 G/DL L 01/15/18 0647 MCV 75.7 FL L 01/15/18 0647 Plt Count 348 /CUMM 01/15/18 0647 RBC 4.02 /CUMM L 01/15/18 0647 RDW 15.9 % H 01/15/18 0647 WBC 9.2 /CUMM 01/15/18 0647 Ur Specific [place] 1.020 01/10/18 2243 Urinalysis HEAVY H 01/10/18 2243 Urine Bacteria FEW H 01/10/18 2243 Urine Bilirubin NEG 01/10/18 2243 Urine Clarity CLEAR 01/10/18 2243 Urine Color YEL 01/10/18 2243 Urine Glucose NEG MG/DL 01/10/18 2243 Urine Hemoglobin LARGE H 01/10/18 2243 Urine Ketones NEG 01/10/18 2243 Urine Mucus FEW 01/10/18 2243 Urine Nitrite NEG 01/10/18 2243 Urine Protein 30 MG/DL H 01/10/18 2243 Urine RBC 50-75 /HPF H 01/10/18 2243 Urine WBC 3-5 /HPF H 01/10/18 2243 Impression: 77-year-old male with a diagnosis of dementia now presenting with delirium. Has had episodes of physical aggression requiring restraint. The patient is now nonverbal, calm and appropriate but not using. According to staff he is speaking to his family. There may be some underlying paranoia. Staff reports that he has been intermittently disoriented. Provisional Treatment Plan: 1. Low-dose antipsychotic. Have ordered risperidone 0.25 mg p.o. twice daily 2. Please check QTC is a patient is also on fluoxetine 3. Suggest reducing fluoxetine to 10 mg p.o. daily due to the patient's age. 4. Defer to medicine on other management Psychiatry will continue to follow. Thank you for consulting us on this patient.
--- NOTE | 2018-01-15 14:56 | Patient Discharge Instructions ---
Discharge Instructions General Discharge Information Special Instructions: - Please follow up with your urologist Dr. Barrett within 1-2 weeks of discharge for your outpatient cystoscopy. - Please follow up with your primary care physician within 1-2 weeks of discharge. Inform your primary care physician of this admission to [facility]. - Continue your current medications per discharge instructions. - Please watch for these problems: Fever, Chills, Nausea, Vomiting, Shortness of Breath, Productive Cough, Chest Pain/Discomfort, Abdominal Pain, Active Bleeding or Bloody urine/stool. Acute Coronary Syndrome Inclusion Criteria At DC or during hospital stay patient has or had the following: ACS DIAGNOSIS No Discharge Core Measures Meds if any: Prescribed or Continued at Discharge Meds if any: NOT Prescribed or Continued at Discharge Congestive Heart Failure Inclusion Criteria At DC or during hospital stay patient has or had the following: CHF DIAGNOSIS No Discharge Core Measures Meds if any: Prescribed or Continued at Discharge Meds if any: NOT Prescribed or Continued at Discharge Cerebrovascular accident Inclusion Criteria At DC or during hospital stay patient has or had the following: CVA/TIA Diagnosis No Discharge Core Measures Meds if any: Prescribed or Continued at Discharge Meds if any: NOT Prescribed or Continued at Discharge Venous thromboembolism Inclusion Criteria VTE Diagnosis No VTE Type NONE VTE Confirmed by (Test) NONE Discharge Core Measures - Per Current guidelines, there needs to be overlap - treatment for the first 5 days of Warfarin therapy. - If discharged on Warfarin prior to 5 days of - overlap therapy, the patient will need to be - assessed for post discharge needs including - *Post discharge parental anticoagulation - *Warfarin and/or parental anticoagulation education - *Follow up date to check INR post discharge At least 5 days overlap therapy as Inpatient No Meds if any: Prescribed or Continued at Discharge Note: Overlap Therapy is Warfarin and Anticoagulant Meds if any: NOT Prescribed or Continued at Discharge
[2018-01-15 22:34] VITALS: BP 138/80
[2018-01-16 06:16] VITALS: BP 122/66
--- NOTE | 2018-01-16 07:37 | PN- Urology ---
Subjective Subjective: Resting comfortably Objective Vital Signs and I&Os Vital Signs Date Time Temp Pulse Resp B/P B/P Pulse O2 O2 Flow FiO2 Mean Ox Delivery Rate 01/16 0616 98.6 76 20 122/66 96 01/16 0000 Nasal 2.0L Cannula 01/15 2234 98.5 55 20 138/80 98 01/15 1409 80.0 82 20 120/80 96 Nasal 2.0L Cannula 01/15 08 Nasal 2.0L Cannula 01/15 08 98.6 87 18 138/90 Intake & Output 01/16 0801/16 0000 01/15 1600 01/15 0800 01/15 0000 01/14 1600 Intake Total 1320 951 682 2771 1800 Output Total 1400 1600 1000 1300 2650 400 Balance -80 -800 -250 -100 -850 -400 Intake, IV 1200 242 908 5188 1200 Intake, Oral 120 200 50 600 Number 0 Bowel Movements Output, Urine 1400 1600 1000 1300 2650 400 Patient 171 lb Weight Weight Bed scale Measurement Method Abd: non tender Genitalia: ayala in place. Draining very clear urine Creatinine continues to improve. Down to 1.9 Laboratory Tests 01/16 626 Chemistry Sodium Pending Potassium Pending Chloride Pending Carbon Dioxide Pending Anion Gap Pending BUN Pending Creatinine Pending BUN/Creatinine Ratio Pending Assessment/Plan Assessment/Plan Imp: 1. Mild R hydronephrosis 2. 1 mm R UVJ stone 3. ? small bladder mass Plan: 1. Will continue to manage R distal ureteral stone conservatively since it is very small and likely to pass spontaneously and renal fxn continues to improve 2. Office f/u for small bladder mass 3. Consider removal of ayala and check pvr with bladder scan. Previous imaging shows he has a chronically elevated pvr so would tolerate pvr up to 500 cc
--- NOTE | 2018-01-16 10:55 | PN- Psychiatry ---
Assessment/Plan Impression: Some improvement on risperidone. Suggestion: Continue risperidone 0.25 mg p.o. twice daily Defer to medicine for other management Psychiatry will continue to follow. Thank you for consulting us on this patient. Subjective Subjective: Patient not responding verbally. Indicates that she is not sure why he is not talking but that he is able to do so. Indicates that he is no wheezing. Objective Last 24 Hrs of Vital Signs/I&O Vital Signs Date Time Temp Pulse Resp B/P B/P Pulse O2 O2 Flow FiO2 Mean Ox Delivery Rate 01/17 0835 76 122/66 01/16 0616 98.6 76 20 122/66 96 01/16 0000 Nasal 2.0L Cannula 01/15 2234 98.5 55 20 138/80 98 01/15 1409 80.0 82 20 120/80 96 Nasal 2.0L Cannula Intake & Output 01/16 1600 01/16 0800 01/16 0000 Intake Total 1320 800 Output Total 1400 1600 Balance -80 -800 Intake, IV 1200 600 Intake, Oral 120 200 Output, Urine 1400 1600 Patient encountered sitting up in bed, eyes open, eating applesauce with staff assistance. Nonverbal but responds to me appropriately by either nodding or shaking his head. He shrugs when asked why he is not talking to us. He indicates that he is able to speak but is choosing not to. He indicates that he is now eating. He denies that he is frightened, sad or anxious. Eye contact is good. He motions for me to go away but agreed that I can come back and see him later.
--- NOTE | 2018-01-16 11:57 | PN- Att Addend ---
Attending Addendum Attending Brief Note Patient admitted here with sepsis like criteria and started on empiric ceftriaxone and falgyl for possible diverticultiis and JACQUELINE with nephrolithiasis. Leukocytosis resolved. Hypernatremia resolved PE unremarkable. No acute distress. Labs Na 140 K 3.3 c/w abx D6 as per ID, f/u BLOOD CULTURES suggestive of clostridium. JACQUELINE with improvement Cr 3.0>>1.5 Hypernatremia resolved. Diet: clear liquids, Advance diet as tolerated. Pyshc appreaicted low dose risperidone started, more coperative today, ate his breakfast. PT consult for general physical deconditioning. o/p urology f/u for nephrolithiasis/small bladder mass for cystoscopy. GI o/p f/ u for possible colonoscopy in few weeks. gi/dvt prophyalxis full code. Admission Lab Results I reviewed the following labs: Laboratory Tests 01/16 626 Chemistry Sodium (137 - 145 mmol/L) 140 Potassium (3.5 - 5.1 mmol/L) 3.3 L Chloride (98 - 107 mmol/L) 99 Carbon Dioxide (22 - 30 mmol/L) 30 Anion Gap (5 - 16) 10 BUN (9 - 20 mg/dL) 27 H Creatinine (0.7 - 1.2 mg/dL) 1.5 H Estimated GFR (>60 ml/min) 45 L BUN/Creatinine Ratio (7 - 25 %) 18.0 Admission Meds I reviewed the following Meds: Current Medications Sig/Edgardo Start time Last Medication Dose Stop Time Status Admin Acetaminophen 1,000 MG Q6P PRN 01/11 0015 AC 01/12 (Ofirmev) 2048 Ceftriaxone Sodium 1,000 MG DAILY 01/11 0145 AC 01/16 (Rocephin) 0835 Dextrose/Sodium 1,000 ML Q10H 01/12 1530 AC 01/16 Chloride 0512 (D5W-1/2 Normal Saline 1000ML) Fluoxetine HCl 10 MG AT BEDTIME 01/15 2100 AC 01/15 (Prozac) 2024 Haloperidol 0.5 MG Q6P PRN 01/13 1015 AC (Haldol) Heparin Sodium 5,000 UNIT Q8 01/11 0600 AC 01/16 (Porcine) 0512 Metronidazole 500 MG IQ8 01/11 0030 AC 01/16 (Flagyl) 0758 N/A 1 UNIT (No Carrier) Risperidone 0.25 MG BID 01/15 1245 AC 01/16 (risperiDONE) 0833 Tamsulosin HCl 0.4 MG DAILY 01/12 0900 AC 01/16 (Flomax) 0835
--- NOTE | 2018-01-16 12:21 | PN- Infect Dx ---
Subjective Subjective: Afebrile without complaints Objective Last 24 Hrs of Vital Signs/I&O Vital Signs Date Time Temp Pulse Resp B/P B/P Pulse O2 O2 Flow FiO2 Mean Ox Delivery Rate 01/16 835 76 122/66 01/17 800 Nasal 2.0L Cannula 01/16 0616 98.6 76 20 122/66 96 01/16 0000 Nasal 2.0L Cannula 01/15 2234 98.5 55 20 138/80 98 01/15 1409 80.0 82 20 120/80 96 Nasal 2.0L Cannula Intake & Output 01/16 1600 01/16 0000 Intake Total 1320 800 Output Total 1400 1600 Balance -80 -800 Intake, IV 1200 600 Intake, Oral 120 200 Output, Urine 1400 1600 Physical Exam Other Physical Findings: He appears more awake and alert in no acute distress Lungs scattered rhonchi Heart regular rhythm with no murmur Abdomen is soft, nontender with positive bowel sounds Extremities no cyanosis, clubbing or edema Tan catheter remains in place Results Last 24 Hours of Lab Results: Laboratory Tests 01/16 626 Chemistry Sodium (137 - 145 mmol/L) 140 Potassium (3.5 - 5.1 mmol/L) 3.3 L Chloride (98 - 107 mmol/L) 99 Carbon Dioxide (22 - 30 mmol/L) 30 Anion Gap (5 - 16) 10 BUN (9 - 20 mg/dL) 27 H Creatinine (0.7 - 1.2 mg/dL) 1.5 H Estimated GFR (>60 ml/min) 45 L BUN/Creatinine Ratio (7 - 25 %) 18.0 Last 24 Hours of Alan Results: Blood cultures x 2 January 13 negative Assessment/Plan ID Impression: Stable, with temperatures and white blood cell count now both normal, on Ceftriaxone and Flagyl, Day 6 of treatment for diverticulitis of the proximal sigmoid colon, with one blood culture positive for Clostridium tertium. His renal failure continues to improve, with Urology input appreciated. Suggestion: 1. Remove Tan catheter and obtain a postvoid residual after 6 hours, with straight cath protocol if needed per Urology 2. Continue Ceftriaxone and Flagyl, with eventual change to Ciprofloxacin and Flagyl upon discharge, to complete a 14 day course of treatment
--- NOTE | 2018-01-16 13:13 | PN- Housestaff ---
Subjective Follow-up For: Diverticulitis, transaminitis, JACQUELINE Subjective: Patient seen and examined at bedside. Patient is demented, alert and oriented to 0. Patient did deny complaints, cooperative during the exam. The patient was verbally nonresponsive yesterday. He was nodding and answering to questions today. The patient did a some Jell-O and took some clear liquids in the morning. Review of Systems Constitutional: Reports: see HPI. Objective Last 24 Hrs of Vital Signs/I&O Vital Signs Date Time Temp Pulse Resp B/P B/P Pulse O2 O2 Flow FiO2 Mean Ox Delivery Rate 01/16 1425 98.3 101 20 84/64 96 Nasal 2.0L Cannula 01/16 0835 76 122/66 01/16 0800 Nasal 2.0L Cannula 01/16 0616 98.6 76 20 122/66 96 01/16 0000 Nasal 2.0L Cannula 01/15 2234 98.5 55 20 138/80 98 Intake & Output 01/16 1600 01/16 0800 01/16 0000 Intake Total 1560 1320 800 Output Total 1803 1400 1600 Balance -243 -80 -800 Intake, IV 1200 1200 600 Intake, Oral 360 120 200 Number 0 Bowel Movements Output, Stool 3 Output, Urine 1800 1400 1600 Physical Exam General Appearance: Alert, Cooperative Neck: Supple Cardiovascular: Regular Rate, Normal S1, Normal S2 Lungs: b/l rhochi Extremities: No Edema Assessment/Plan Assessment: 77-year-old man with past medical history of dementia, CAD status post CABG, hypertension, hyperlipidemia, PVD, aortic aneurysm, COPD on 2.0 L home O2, non- small cell lung cancer status post radiation, GERD, PUD, CAD, and nephrolithiasis seen for evaluation of fall, weakness, and back pain. Admitted for diverticulitis, JACQUELINE on CKD3 Problem List 1. Sepsis 2. Diverticulitis 3. Transaminitis 4. Acute kidney injury; probably secondary to obstructive disease. 5. 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 Chronic hypoxic respiratory failure 7. History of lung cancer. 1.Sepsis - resolving -On IV Rocephin 1g daily and Flagyl 500mg q8 day 6 -Blood Cultures positive for coag neg staph, clostridium tertium. Second set of cultures pending -Guaic all stools -GI Consulted, will hold off on any interventions until patient more stable -Supplemental O2 goal >92% -Afebrile, leukocytosis resolving with last WBC being 9.2 2. Diverticulitis -IV Flagyl, Ceftriaxone day 6 -D5 1/2NS @ 100mL/hr -GI Consult appreciated - no interventions until patient stable 3.Transaminitis -Hold statins 4.JACQUELINE - improving -CT Abd/Pelvis - "Moderate hydronephrosis of right kidney. Multiple renal and ureteral calculi. There is a 1 mm stone at the right bladder trigone at the right UVJ." IN addended read, "Review of the CAT scan study does show a ovoid mass at the base of the bladder measuring approximately 1.5 cm. Axial image 112 (2)." -Tan's discotinued for the patient per GI recs -Urology consult appreciated. Will f/u, recs -BEP to trend. Last BUN/Cr 27/1.5 t. On admission on 01/10 BUN/Cr was 89/4.0 5.Chronic Hypoxic Respiratory Failure -O2 as needed, TRC PT evalaution in the am DVT ppx IV access Full Code Advance diet as tolerated Problem List: 1. Altered mental status 2. JACQUELINE (acute kidney injury) 3. Diverticulitis 4. Abdominal pain Pain Ratin Pain Location: na Pain Goal: Pain 7 or less Pain Plan: pathway Tomorrow's Labs & Rationales: cbc and bep
[2018-01-16 14:25] VITALS: BP 84/64
[2018-01-16 19:56] VITALS: BP 92/60
--- NOTE | 2018-01-16 20:49 | Event Note ---
Event Note Event Note: S: Was paged by nursing staff @1999 who stated pts blood pressure 92/60 with heart rate of 104. Previously @1430 patient was BP 84/64 with heart rate of 101 B: Mr Humphries has pertinent PMH of dementia, has had several episodes of loose stools today, was switched to isolation and stool C.diff sent. Is also being treated for diverticulitis and is on Ceftriaxone and Flagyl. Has had poor PO intake throughout hospital stay and is currently Hypokalemic. A: Mr Humphries had no complaints when I went in and interviewed him. Was at baseline mentation. Exam benign, no abdominal tenderness. Adamantly denies any new episodes of diarrhea or complaints in general. R: Ordered 1 L NS bolus for Mr Humphries, as well as 40mg PO Potassium given his low potassium. Will reassess if continues to be hypotensive and tachycardic. Boom Hughes #[id number]
[2018-01-16 22:28] VITALS: BP 100/60
[2018-01-17 06:28] VITALS: BP 108/60
--- NOTE | 2018-01-17 07:29 | PN- Housestaff ---
See Addendum Pascale Martínez 01/17/18 0729: Subjective Follow-up For: diverticulitis, transaminitis, JACQUELINE Subjective: Patient seen and examined at the bedside. Last night the patient had an episode of hypotension. His blood pressure dropped to 92/60 with a heart rate of 104. 1 L normal saline bolus was given the patient responded well and his blood pressure came up to 100/60. In the morning. The patient is again agitated. He refuses to answer questions and is refusing food completely. Notably this is a change in status from yesterday when the patient was alert, oriented and answering questions well. He also had breakfast and lunch comfortably without complaints. Review of Systems Constitutional: Reports: see HPI. Objective Last 24 Hrs of Vital Signs/I&O Vital Signs Date Time Temp Pulse Resp B/P B/P Pulse O2 O2 Flow FiO2 Mean Ox Delivery Rate 01/17 1052 97.4 91 20 142/60 99 Nasal 3.0L Cannula 01/17 1038 91 142/60 01/17 0628 97.8 86 20 108/60 98 / 0000 Nasal 3.0L Cannula 01/16 2228 97.7 98 18 100/60 99 Nasal 3.0L Cannula 01/16 1956 97.8 104 18 92/60 99 Nasal 3.0L Cannula 01/16 1425 98.3 101 20 84/64 96 Nasal 2.0L Cannula Intake & Output 01/17 1600 /02 0800 01/17 0000 Intake Total 1200 1600 Output Total 750 Balance 1200 850 Intake, IV 1200 1000 Intake, Oral 600 Number 2 Bowel Movements Output, Urine 750 Physical Exam General Appearance: the patient refuses to answer questiosns at all this morning Neck: Supple Cardiovascular: refused exam Lungs: refused exam Abdomen: deferred exam (refused exam) Assessment/Plan Assessment: 77-year-old man with past medical history of dementia, CAD status post CABG, hypertension, hyperlipidemia, PVD, aortic aneurysm, COPD on 2.0 L home O2, non- small cell lung cancer status post radiation, GERD, PUD, CAD, and nephrolithiasis seen for evaluation of fall, weakness, and back pain. Admitted for diverticulitis, JACQUELINE on CKD3 Problem List 1. Sepsis 2. Diverticulitis 3. Transaminitis 4. Acute kidney injury; probably secondary to obstructive disease. 5. 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 Chronic hypoxic respiratory failure 7. History of lung cancer. 1.Sepsis -On IV Rocephin 1g daily and Flagyl 500mg q8 day 7 -Blood Cultures positive for coag neg staph, clostridium tertium. Second set of cultures positive for gram-positive cocci in clusters -Patient is afebrile. However, he has developed white blood count of 14.5 per the labs this morning. -Guaic all stools -GI Consulted, will hold off on any interventions until patient more stable -Supplemental O2 goal >92% -Had a couple of episodes of hypotension yesterday with the lowest blood pressure being 84/54. -We will monitor blood pressure closely and make a decision to give tamsulosin accordingly. -Order lactic acid. 2. Diverticulitis -IV Flagyl, Ceftriaxone day 7 - -GI Consult appreciated - no interventions until patient stable 3.Transaminitis -Hold statins 4.JACQUELINE - improving -CT Abd/Pelvis - "Moderate hydronephrosis of right kidney. Multiple renal and ureteral calculi. There is a 1 mm stone at the right bladder trigone at the right UVJ." IN addended read, "Review of the CAT scan study does show a ovoid mass at the base of the bladder measuring approximately 1.5 cm. Axial image 112 (2)." -Tan's discotinued for the patient per GI recs -Urology consult appreciated. Will add finasteride 5 mg daily per recs.. -BEP to trend. Last BUN/Cr 27/1.5 t. On admission on 01/10 BUN/Cr was 89/4.0 5.Chronic Hypoxic Respiratory Failure -O2 as needed, TRC PT evalaution in the am DVT ppx IV access Full Code Advance diet as tolerated Problem List: 1. Diverticulitis 2. Leukocytosis 3. JACQUELINE (acute kidney injury) 4. Altered mental status Pain Ratin Pain Location: na Pain Goal: Pain 4 or less Pain Plan: pathway Tomorrow's Labs & Rationales: cbc and bep Ismael Monson 01/17/18 1208: Attending Review Statement Attending Statement Attending MD Statement: examined this patient, discuss w/resident/PA/RESERVATION CLERK, agreed w/resident/PA/RESERVATION CLERK, discussed with family, reviewed EMR data (avail), discussed with nursing, discussed with case mgmt, reviewed images, amended to note Attending Assessment/Plan: Patient admitted here with sepsis like criteria and started on empiric ceftriaxone and falgyl for possible diverticultiis and JACQUELINE with nephrolithiasis with resolution of signs and labs with improvement. However pateint became hypoensive ovenight requiring 1l of bolus NS. He is again agitated this morning. Non coperative. He had multiple loose stools overnight. He is on antibiotics ceftriaxone and flagyl D7. Obtain lactic acid level. C diff stool sent. Follow up ID. JACQUELINE with improvement Cr 3.0>>1.5 and now Cr stabilising arond 1.5 Diet: clear liquids, Advance diet as tolerated. (not coperative today) Pyshc appreaicted low dose risperidone. f/u psych delirum in elderly. PT consult for general physical deconditioning. o/p urology f/u for nephrolithiasis/small bladder mass for cystoscopy. GI o/p f/ u for possible colonoscopy in few weeks. gi/dvt prophyalxis full code.
--- NOTE | 2018-01-17 07:36 | PN- Urology ---
Subjective Subjective: Resting quietly but not cooperative with exam Ayala out yesterday. Voiding spontaneously with pvr of 50 cc Objective Vital Signs and I&Os Vital Signs Date Time Temp Pulse Resp B/P B/P Pulse O2 O2 Flow FiO2 Mean Ox Delivery Rate 01/18 628 97.8 86 20 108/60 98 01/17 0000 Nasal 3.0L Cannula 01/16 2228 97.7 98 18 100/60 99 Nasal 3.0L Cannula 01/16 1956 97.8 104 18 92/60 99 Nasal 3.0L Cannula 01/16 1425 98.3 101 20 84/64 96 Nasal 2.0L Cannula 01/16 0835 76 122/66 01/16 0800 Nasal 2.0L Cannula Intake & Output 01/17 0800 01/17 0000 01/16 1600 01/16 0801/16 0000 01/15 1600 Intake Total 1200 1600 1560 1320 800 750 Output Total 750 1803 1400 1600 1000 Balance 1200 850 -243 -80 -800 -250 Intake, IV 1200 1000 1200 1200 600 700 Intake, Oral 600 360 120 200 50 Number 2 0 Bowel Movements Output, Stool 3 Output, Urine 750 1800 1400 1600 1000 Not cooperative with exam Laboratory Tests 01/16 2213 Chemistry Potassium (3.5 - 5.1 mmol/L) 3.1 L Blood cultures pos for gram pos cocci Assessment/Plan Assessment/Plan Imp: 1. Chronic incomplete bladder emptying Plan: 1. Leave ayala out 2. Continue to check pvr by bladder scan bid 3. continue tamsulosin if blood pressure will tolerate it 4. Add finasteride 5 mg qd
[2018-01-17 08:22] LABS: ABSOLUTE BASOPHIL COUNT 0 /CUMM (0.0-0.2); ABSOLUTE EOSINOPHIL COUNT 0.2 /CUMM (0.0-0.7); ABSOLUTE GRANULOCYTE CT 11.3 /CUMM (1.4-6.5); ABSOLUTE LYMPH COUNT 1.9 /CUMM (1.2-3.4); ABSOLUTE MONOCYTE COUNT 1.1 /CUMM (0.10-0.60); BASOPHIL % 0.2 % (0.0-2.0); EOSINOPHIL % 1.5 % (0-5); GRANULOCYTE % 78.1 % (42.2-75.2); HEMATOCRIT 29.8 % (42-52); MEAN CORPUSCULAR HGB CONC 31.7 G/DL (33.0-37.0); MEAN CORPUSCULAR VOLUME 75.7 FL (80.0-94.0); RBC DISTRIBUTION WIDTH 16.5 % (11.5-14.5); RED BLOOD CELL CT 3.94 /CUMM (4.70-6.10)
[2018-01-17 09:53] LABS: WHITE BLOOD CELL COUNT 14.5 /CUMM (4.8-10.8)
[2018-01-17 10:52] VITALS: BP 142/60
[2018-01-17 11:43] VITALS: BP 130/60
--- NOTE | 2018-01-17 12:47 | PN- Infect Dx ---
Subjective Subjective: Afebrile without complaints. He was hypotensive overnight, requiring IV fluids, and his blood pressure has improved today. He reportedly had multiple loose bowel movements yesterday. A postvoid residual last night was 50 cc following removal of the Tan catheter. Objective Last 24 Hrs of Vital Signs/I&O Vital Signs Date Time Temp Pulse Resp B/P B/P Pulse O2 O2 Flow FiO2 Mean Ox Delivery Rate 01/17 1143 130/60 01/17 1052 97.4 91 20 142/60 99 Nasal 3.0L Cannula 01/17 1038 91 142/60 01/17 0800 99 Nasal 3.0L Cannula 01/17 0628 97.8 86 20 108/60 98 08/ 0000 Nasal 3.0L Cannula 01/16 2228 97.7 98 18 100/60 99 Nasal 3.0L Cannula 01/16 1956 97.8 104 18 92/60 99 Nasal 3.0L Cannula 01/16 1425 98.3 101 20 84/64 96 Nasal 2.0L Cannula Intake & Output 01/17 1600 01/17 0800 01/17 0000 Intake Total 1200 1600 Output Total 750 Balance 1200 850 Intake, IV 1200 1000 Intake, Oral 600 Number 2 Bowel Movements Output, Urine 750 Physical Exam Other Physical Findings: He is lethargic but arousable and in no acute distress Lungs are clear Heart regular rhythm no murmur Abdomen is mildly distended, nontender with positive bowel sounds Extremities no cyanosis, clubbing or edema Results Last 24 Hours of Lab Results: Laboratory Tests 01/17 01/16 0609 2213 Chemistry Sodium (137 - 145 mmol/L) 141 Potassium (3.5 - 5.1 mmol/L) 3.1 L 3.1 L Chloride (98 - 107 mmol/L) 106 Carbon Dioxide (22 - 30 mmol/L) 28 Anion Gap (5 - 16) 7 BUN (9 - 20 mg/dL) 20 Creatinine (0.7 - 1.2 mg/dL) 1.5 H Estimated GFR (>60 ml/min) 45 L BUN/Creatinine Ratio (7 - 25 %) 13.3 Hematology CBC w Diff NO MAN DIFF REQ WBC (4.8 - 10.8 /CUMM) 14.5 H RBC (4.70 - 6.10 /CUMM) 3.94 L Hgb (14.0 - 18.0 G/DL) 9.4 L Hct (42 - 52 %) 29.8 L MCV (80.0 - 94.0 FL) 75.7 L MCH (27.0 - 31.0 PG) 24.0 L MCHC (33.0 - 37.0 G/DL) 31.7 L RDW (11.5 - 14.5 %) 16.5 H Plt Count (/CUMM) Gran % (42.2 - 75.2 %) 78.1 H Lymphocytes % (20.5 - 51.1 %) 12.7 L Monocytes % (1.7 - 9.3 %) 7.5 Eosinophils % (0 - 5 %) 1.5 Basophils % (0.0 - 2.0 %) 0.2 Absolute Granulocytes (1.4 - 6.5 /CUMM) 11.3 H Absolute Lymphocytes (1.2 - 3.4 /CUMM) 1.9 Absolute Monocytes (0.10 - 0.60 /CUMM) 1.1 H Absolute Eosinophils (0.0 - 0.7 /CUMM) 0.2 Absolute Basophils (0.0 - 0.2 /CUMM) 0 Last 24 Hours of Alan Results: Blood cultures January 13 1 bottle positive for gram-positive cocci in clusters Blood culture January 17 pending Stool C. difficile January 17 pending Assessment/Plan ID Impression: Stable, with temperatures remaining normal, on Ceftriaxone and Flagyl, Day 7 of treatment for diverticulitis of the proximal sigmoid colon, with one blood culture positive for Clostridium tertium. His white blood cell count is increased today, possibly related to his diarrhea, with C. difficile pending, or to his diverticulitis or to a new infectious process, for example a urinary tract infection with a Tan catheter in place until yesterday. Suggestion: 1. Follow-up stool for C. difficile 2. Straight cath for urinalysis and urine culture and document any residual urine 3. Repeat CBC and consider repeat CT of the abdomen and pelvis if his white blood cell count remains elevated 4. Continue Ceftriaxone and Flagyl pending above
--- NOTE | 2018-01-17 15:33 | Incdntl Nt Psy ---
Incidental Note Notation: Review of notes reveals that the patient is again refusing to respond. He had an episode of hypotension last night. Risperidone was held. Risperidone at 0.25 mg unlikely to be the cause of this. Suggest continuing risperidone at 0.25 mg p.o. a.m. and at bedtime. Psychiatry will continue to follow.
[2018-01-17 17:40] VITALS: BP 116/70
[2018-01-18 06:38] VITALS: BP 110/60
--- NOTE | 2018-01-18 07:16 | PN- Urology ---
Subjective Subjective: Resting in bed. No acute distress. No further hypotension Objective Vital Signs and I&Os Vital Signs Date Time Temp Pulse Resp B/P B/P Pulse O2 O2 Flow FiO2 Mean Ox Delivery Rate 01/18 06 98.6 77 20 110/60 97 / 0000 Nasal 3.0L Cannula 01/17 1740 98.7 105 20 116/70 99 Nasal 3.0L Cannula 01/17 1600 Nasal 3.0L Cannula 01/17 1143 130/60 01/17 1052 97.4 91 20 142/60 99 Nasal 3.0L Cannula 01/17 1038 91 142/60 01/17 0800 99 Nasal 3.0L Cannula Intake & Output 01/18 0801/18 0000 01/17 1600 01/17 0801/17 0000 01/16 1600 Intake Total 900 1100 1000 1200 1600 1560 Output Total 750 1803 Balance 900 1100 1000 1200 850 -243 Intake, IV 944 221 3243 1200 1000 1200 Intake, Oral 300 600 360 Number 2 0 Bowel Movements Output, Stool 3 Output, Urine 750 1800 Abd: non tender. No palpable mass Laboratory Tests 01/18 01/17 01/17 01/17 0605 1757 1149 1011 Chemistry Sodium Pending Potassium Pending Chloride Pending Carbon Dioxide Pending Anion Gap Pending BUN Pending Creatinine Pending BUN/Creatinine Ratio Pending Lactic Acid (0.7 - 2.1 mmol/L) 1.2 Cancelled Cancelled Hematology CBC w Diff Pending WBC Pending RBC Pending Hgb Pending Hct Pending MCV Pending MCH Pending MCHC Pending RDW Pending Plt Count Pending MPV Pending Wbc count increased to 14.5 Assessment/Plan Assessment/Plan Imp: 1. chronic incomplete bladder emptying 2. 1 mm R UVJ stone Plan: 1. Would straight cath for accurate pvr and send urine for U/A and C&S 2. Continue tamsulosin if BP will tolerate it\ 3. Finasteride 5 mg po qd
--- NOTE | 2018-01-18 07:28 | PN- Housestaff ---
Milo Martínezi 01/18/18 0728: Subjective Follow-up For: diverticulitis and sepsis Subjective: The patient could not be interviewed or examined as he was sleeping and was not arousable. The nurse, states that he was combative last night and refused his food, heparin, his medications. Late in the evening, yesterday, the daughter was at bedside. Patient was much more calm and was having sips of water. He had been refusing to take care of his blood sample for test the whole day yesterday. But the daughter was able to convince him to let the nurse check his vitals as well as take his blood sample. I had an extensive discusison with the daughter about his refusals to eat, or be exmined by the medical team. She said she would have a talk with him. Review of Systems Constitutional: Reports: see HPI. Objective Last 24 Hrs of Vital Signs/I&O Vital Signs Date Time Temp Pulse Resp B/P B/P Pulse O2 O2 Flow FiO2 Mean Ox Delivery Rate 01/18 0841 95 100/60 01/18 0800 95 Nasal 3.0L Cannula 01/18 0638 98.6 77 20 110/60 97 / 0000 Nasal 3.0L Cannula 01/17 1740 98.7 105 20 116/70 99 Nasal 3.0L Cannula 01/17 1600 Nasal 3.0L Cannula 01/17 1143 130/60 Intake & Output 01/18 1600 / 0800 01/18 0000 Intake Total 900 1100 Output Total Balance 900 1100 Intake, IV 900 800 Intake, Oral 300 Physical Exam General Appearance: not arousable, continously nodding his head Skin: No Rashes, No Breakdown Assessment/Plan Assessment: 77-year-old man with past medical history of dementia, CAD status post CABG, hypertension, hyperlipidemia, PVD, aortic aneurysm, COPD on 2.0 L home O2, non- small cell lung cancer status post radiation, GERD, PUD, CAD, and nephrolithiasis seen for evaluation of fall, weakness, and back pain. Admitted for diverticulitis, JACQUELINE on CKD3. The patient was arousable, albeit un- cooperative yesterday. He was not arousable today. He was continously nodding his head when we went to interview and examine him. Yesterday, in the evening, the patient was much more calm and co-operative in the presence of his daughter. He was eating and drinking and consented to drawing blood for his labs. The patient has been un-cooperative with the PT an has not been able to get out of the bed at all. He was mobile and was able to independantly use the bathroom at home. However, he has been incontinent since he was admitted ot the hospital. Problem List 1. Resolving Sepsis 2. Diverticulitis 3. Transaminitis 4. Acute kidney injury; probably secondary to obstructive disease. 5. 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 Chronic hypoxic respiratory failure 7. History of lung cancer. 8. Delirium 1. Resolving Sepsis -On IV Rocephin 1g daily and Flagyl 500mg q8 day 8. -Blood Cultures positive for coag neg staph, clostridium tertium. Second set of cultures positive for gram-positive cocci in clusters -Patient is afebrile. However, his WBC is 7.8 this morning. -GI Consulted, will hold off on any interventions until patient more stable -Supplemental O2 goal >92% -Lactic acid 1.2 2. Diverticulitis -IV Flagyl, Ceftriaxone day 8 - -GI Consult appreciated - no interventions until patient stable 3.Transaminitis -Hold statins 4.JACQUELINE - improving -CT Abd/Pelvis - "Moderate hydronephrosis of right kidney. Multiple renal and ureteral calculi. There is a 1 mm stone at the right bladder trigone at the right UVJ." IN addended read, "Review of the CAT scan study does show a ovoid mass at the base of the bladder measuring approximately 1.5 cm. Axial image 112 (2)." -Tan's discotinued for the patient per GI recs -Urology consult appreciated. Will add finasteride 5 mg daily per recs.. -BEP to trend. Creatinine 1.4. On admission on 01/10 BUN/Cr was 89/4.0 5.Chronic Hypoxic Respiratory Failure -O2 as needed, TRC 6. ?Delirium -The patient has been refusing bedside interview and exmaination -He has been refusing his food as well -The patient seems to be much more calm and cooperative in the presence of his daughter -We will call the daughter to see if she could come see him more often -We will monitor the patient for any acute causes contributing to delirium including infection, constipation or electrolyte imbalance -We will request Psych to foloow up with the patient and follow recs -We wll consider placing a neuro consult if his condition does not improve by tomorrow DVT ppx IV access Full Code Advance diet as tolerated Problem List: 1. Transaminitis 2. Diverticulitis 3. Delirium Pain Ratin Pain Location: na Pain Goal: Pain 4 or less Pain Plan: pathway Tomorrow's Labs & Rationales: cbc and bep Ismael Monson 01/18/18 1133: Attending MD Review Statement Attending Statement Attending MD Statement: examined this patient, discuss w/resident/PA/SCREEN OPERATOR, agreed w/resident/PA/SCREEN OPERATOR, discussed with family, reviewed EMR data (avail), discussed with nursing, discussed with case mgmt, reviewed images, amended to note Attending Assessment/Plan: Patient non coperative with medical team this morning. Patient leukocytosis has improved. Afebrile. He is continue on abx D8 as per ID recommendations. GI nad urology with no acute intervention planned. Patient encouraged and reinforced about his poor PO intake and eating more. He is more awake, alert and even eats his food in presence of his daughter. I would conisder neurology consult if no improvement on his mental status or exhibits seizure like symtoms but less likely. Would obtain straight cath urine culture. His creatinine is stabilsing around 1.4 now. Follow ID and pysch recommendations. PT evalaution in presence of his daughter would help. Discharge planning based on above.
[2018-01-18 07:59] LABS: ABSOLUTE BASOPHIL COUNT 0 /CUMM (0.0-0.2); ABSOLUTE EOSINOPHIL COUNT 0.2 /CUMM (0.0-0.7); ABSOLUTE GRANULOCYTE CT 5.1 /CUMM (1.4-6.5); ABSOLUTE LYMPH COUNT 1.8 /CUMM (1.2-3.4); ABSOLUTE MONOCYTE COUNT 0.7 /CUMM (0.10-0.60); BASOPHIL % 0.3 % (0.0-2.0); EOSINOPHIL % 2.8 % (0-5); GRANULOCYTE % 64.9 % (42.2-75.2); HEMATOCRIT 28.5 % (42-52); MEAN CORPUSCULAR HGB 24.3 PG (27.0-31.0); MEAN CORPUSCULAR HGB CONC 31.8 G/DL (33.0-37.0); MEAN CORPUSCULAR VOLUME 76.4 FL (80.0-94.0); MEAN PLATELET VOLUME 8.5 FL (7.4-10.4); PLATELET COUNT 279 /CUMM (130-400); RBC DISTRIBUTION WIDTH 15.9 % (11.5-14.5); RED BLOOD CELL CT 3.73 /CUMM (4.70-6.10); WHITE BLOOD CELL COUNT 7.8 /CUMM (4.8-10.8)
--- NOTE | 2018-01-18 13:10 | PN- Infect Dx ---
Subjective Subjective: Afebrile without complaints Objective Last 24 Hrs of Vital Signs/I&O Vital Signs Date Time Temp Pulse Resp B/P B/P Pulse O2 O2 Flow FiO2 Mean Ox Delivery Rate 01/18 0841 95 100/60 01/18 0800 95 Nasal 3.0L Cannula 01/18 0638 98.6 77 20 110/60 97 01/18 0000 Nasal 3.0L Cannula 01/17 1740 98.7 105 20 116/70 99 Nasal 3.0L Cannula 01/17 1600 Nasal 3.0L Cannula Intake & Output 01/18 1600 01/18 0801/18 0000 Intake Total 945 788 8234 Output Total Balance 981 659 0992 Intake, IV 900 800 Intake, Oral 200 300 Physical Exam Other Physical Findings: He remains nonverbal and lethargic but responsive Lungs bilateral rhonchi Heart regular rhythm with no murmur Abdomen is distended, with no obvious tenderness, positive bowel sounds Extremities no cyanosis, clubbing or edema Results Last 24 Hours of Lab Results: Laboratory Tests 01/18 01/17 0605 1757 Chemistry Sodium (137 - 145 mmol/L) 139 Potassium (3.5 - 5.1 mmol/L) 3.6 Chloride (98 - 107 mmol/L) 105 Carbon Dioxide (22 - 30 mmol/L) 30 Anion Gap (5 - 16) 4 L BUN (9 - 20 mg/dL) 17 Creatinine (0.7 - 1.2 mg/dL) 1.4 H Estimated GFR (>60 ml/min) 49 L BUN/Creatinine Ratio (7 - 25 %) 12.1 Lactic Acid (0.7 - 2.1 mmol/L) 1.2 Hematology CBC w Diff NO MAN DIFF REQ WBC (4.8 - 10.8 /CUMM) 7.8 RBC (4.70 - 6.10 /CUMM) 3.73 L Hgb (14.0 - 18.0 G/DL) 9.1 L Hct (42 - 52 %) 28.5 L MCV (80.0 - 94.0 FL) 76.4 L MCH (27.0 - 31.0 PG) 24.3 L MCHC (33.0 - 37.0 G/DL) 31.8 L RDW (11.5 - 14.5 %) 15.9 H Plt Count (130 - 400 /CUMM) 279 MPV (7.4 - 10.4 FL) 8.5 Gran % (42.2 - 75.2 %) 64.9 Lymphocytes % (20.5 - 51.1 %) 23.3 Monocytes % (1.7 - 9.3 %) 8.7 Eosinophils % (0 - 5 %) 2.8 Basophils % (0.0 - 2.0 %) 0.3 Absolute Granulocytes (1.4 - 6.5 /CUMM) 5.1 Absolute Lymphocytes (1.2 - 3.4 /CUMM) 1.8 Absolute Monocytes (0.10 - 0.60 /CUMM) 0.7 H Absolute Eosinophils (0.0 - 0.7 /CUMM) 0.2 Absolute Basophils (0.0 - 0.2 /CUMM) 0 Last 24 Hours of Alan Results: Blood cultures January 17 negative Stool C. difficile January 17 negative Blood culture January 13 positive for coag negative Staph Assessment/Plan ID Impression: Stable, with temperatures remaining normal, on Ceftriaxone and Flagyl, Day 8 of treatment for diverticulitis of the proximal sigmoid colon, with one blood culture positive for Clostridium tertium. His white blood cell count, which was elevated yesterday, is back to normal today. He has had no further diarrhea recorded and his C. difficile was negative. His Tan catheter was removed 2 days ago, with a postvoid residual of 50 cc and with his creatinine continuing to improve. The positive blood cultures for coag negative Staph presumably represent contaminants and do not require treatment. Suggestion: 1. Further evaluation for urinary retention, with bladder scan monitoring, per Urology 2. Continue Ceftriaxone and Flagyl but can change to Ciprofloxacin and Flagyl upon discharge to complete a 14 day course of treatment Dr. Levin will be covering over the weekend
[2018-01-18 14:23] VITALS: BP 98/60
[2018-01-18 20:43] VITALS: BP 110/70
--- NOTE | 2018-01-19 05:13 | PN- Housestaff ---
Pascale Martínez 01/19/18 0513: Subjective Follow-up For: Diverticulitis, Transaminitis, JACQUELINE, ? Delirium Subjective: The patient was seen and examined at bedside. He was alert and oriented and complained he could not get any sleep in "this stupid place". i asked him if he would want to go home. He said he would. However, he refused to eat . I will check on him and try to encourage him to have his breakfast. He did not co- operate for anymore questions. However, he let the nurse do a set of vitals on him comforatbly. Review of Systems Constitutional: Reports: see HPI. Objective Last 24 Hrs of Vital Signs/I&O Vital Signs Date Time Temp Pulse Resp B/P B/P Pulse O2 O2 Flow FiO2 Mean Ox Delivery Rate 01/19 0608 97.3 90 20 130/84 99 Nasal 3.0L Cannula 01/19 0000 96 Nasal 3.0L Cannula 01/18 2043 98.8 107 17 110/70 98 Nasal 3.0L Cannula 01/18 1423 97.5 92 20 98/60 96 /03 0841 95 100/60 01/18 0800 95 Nasal 3.0L Cannula Intake & Output 01/19 0800 08/04 0000 01/18 1600 Intake Total 920 1040 900 Output Total 1 Balance 920 1039 900 Intake, IV 800 800 700 Intake, Oral 120 240 200 Number 2 2 Bowel Movements Output, Stool 1 Physical Exam General Appearance: Alert, Oriented X3, No Acute Distress Skin: No Breakdown Cardiovascular: Regular Rate, Normal S1, Normal S2 Lungs: Clear to Auscultation Assessment/Plan Assessment: 77-year-old man with past medical history of dementia, CAD status post CABG, hypertension, hyperlipidemia, PVD, aortic aneurysm, COPD on 2.0 L home O2, non- small cell lung cancer status post radiation, GERD, PUD, CAD, and nephrolithiasis seen for evaluation of fall, weakness, and back pain. Admitted for diverticulitis, JACQUELINE on CKD3. The patient was alert and responsive today. He was minimally cooperative with the exmaination. However, this is a definite improvement from the last two days. Problem List 1. Resolving Sepsis 2. Diverticulitis 3. Transaminitis 4. Acute kidney injury; probably secondary to obstructive disease. 5. 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 Chronic hypoxic respiratory failure 7. History of lung cancer. 8. ?Delirium 1. Resolving Sepsis -On IV Rocephin 1g daily and Flagyl 500mg q8 day 9. -Blood Cultures positive for coag neg staph, clostridium tertium. Second set of cultures positive for gram-positive cocci in clusters -Patient is afebrile. -Supplemental O2 goal >92% 2. Diverticulitis -IV Flagyl, Ceftriaxone day 9 - -GI Consult appreciated - no interventions until patient stable 3.Transaminitis -Hold statins 4.JACQUELINE - improving -Tan's discotinued for the patient per Uro recs -Urology consult appreciated. Will add finasteride 5 mg daily per recs.. -BEP to trend. Creatinine 1.4. On admission on 01/10 BUN/Cr was 89/4.0 5.Chronic Hypoxic Respiratory Failure -O2 as needed, TRC 6. ?Delirium -The patient is arousable but is cooperative with the bedside examination, albeit minimally -He is still refusing his food. Will go see him again to encourage him to eat. -We will request Psych to follow up with the patient and follow recs -Now that the patient is arousable and responsive, we will have PT evaluate him DVT ppx IV access Full Code Advance diet as tolerated Problem List: 1. Delirium 2. Transaminitis 3. Leukocytosis 4. Diverticulitis 5. JACQUELINE (acute kidney injury) 6. Mental status change Pain Ratin Pain Location: na Pain Goal: Remain pain free Pain Plan: na Tomorrow's Labs & Rationales: cbc and bep Ismael Monson 01/19/18 0948: Attending MD Review Statement Attending Statement Attending MD Statement: examined this patient, discuss w/resident/PA/MANAGER GAME, agreed w/resident/PA/MANAGER GAME, discussed with family, reviewed EMR data (avail), discussed with nursing, discussed with case mgmt, reviewed images, amended to note Attending Assessment/Plan: No overnight complaints. Encourage Po intake and work with PT. Continue with antibitoics. Continue current care. Pyshc following.
[2018-01-19 06:08] VITALS: BP 130/84
[2018-01-19 08:09] LABS: ABSOLUTE BASOPHIL COUNT 0 /CUMM (0.0-0.2); ABSOLUTE EOSINOPHIL COUNT 0.2 /CUMM (0.0-0.7); ABSOLUTE GRANULOCYTE CT 5.3 /CUMM (1.4-6.5); ABSOLUTE LYMPH COUNT 2.1 /CUMM (1.2-3.4); ABSOLUTE MONOCYTE COUNT 0.8 /CUMM (0.10-0.60); BASOPHIL % 0.4 % (0.0-2.0); EOSINOPHIL % 2.6 % (0-5); MEAN CORPUSCULAR HGB 24.4 PG (27.0-31.0); MEAN CORPUSCULAR HGB CONC 31.9 G/DL (33.0-37.0); MEAN CORPUSCULAR VOLUME 76.2 FL (80.0-94.0); MEAN PLATELET VOLUME 8.5 FL (7.4-10.4); PLATELET COUNT 285 /CUMM (130-400); RBC DISTRIBUTION WIDTH 16.7 % (11.5-14.5); RED BLOOD CELL CT 3.68 /CUMM (4.70-6.10); WHITE BLOOD CELL COUNT 8.5 /CUMM (4.8-10.8)
[2018-01-19 13:34] VITALS: BP 138/70
--- NOTE | 2018-01-19 20:06 | PN- Infect Dx ---
Subjective Subjective: 77-year-old man with sigmoid diverticulitis. He remains nonverbal and lethargic but does say that he has back pain. Denies fevers chills nausea or vomiting. He remains afebrile with a normal white blood cell count. Review of Systems Constitutional: Reports: see HPI. Comments: 12 point review limited by non-verbal patient Objective Last 24 Hrs of Vital Signs/I&O Vital Signs Date Time Temp Pulse Resp B/P B/P Pulse O2 O2 Flow FiO2 Mean Ox Delivery Rate 01/19 1334 97.2 81 20 138/70 99 Nasal 3.0L Cannula 01/19 0903 99.4 95 24 130/70 01/19 0800 Nasal 3.0L Cannula 01/19 0608 97.3 90 20 130/84 99 Nasal 3.0L Cannula 01/19 0000 96 Nasal 3.0L Cannula 01/18 2043 98.8 107 17 110/70 98 Nasal 3.0L Cannula Intake & Output 01/19 1600 01/19 0800 01/19 0000 Intake Total 4452 608 1268 Output Total 1 Balance 6720 040 8956 Intake, IV 800 800 800 Intake, Oral 240 120 240 Number 2 Bowel Movements Output, Stool 1 Physical Exam Other Physical Findings: Nonverbal and lethargic Pupils equal and reactive to light and accommodation equal ocular motion Neck Supple no JVD Heart regular rate and rhythm S1-S2 Lungs clear to auscultation bilaterally Abdomen soft nontender nondistended No change in neurologic status. Results Last 24 Hours of Lab Results: Laboratory Tests 01/19 0700 Chemistry Sodium (137 - 145 mmol/L) 139 Potassium (3.5 - 5.1 mmol/L) 3.9 Chloride (98 - 107 mmol/L) 105 Carbon Dioxide (22 - 30 mmol/L) 30 Anion Gap (5 - 16) 4 L BUN (9 - 20 mg/dL) 14 Creatinine (0.7 - 1.2 mg/dL) 1.3 H Estimated GFR (>60 ml/min) 53 L BUN/Creatinine Ratio (7 - 25 %) 10.8 Total Bilirubin (0.2 - 1.3 mg/dL) 0.1 L Direct Bilirubin (< 0.4 mg/dL) 0.1 AST (17 - 59 U/L) 48 ALT (21 - 72 U/L) 56 Alkaline Phosphatase (< 127 U/L) 102 Total Protein (6.3 - 8.2 g/dL) 5.1 L Albumin (3.5 - 5.0 g/dL) 2.2 L Hematology CBC w Diff NO MAN DIFF REQ WBC (4.8 - 10.8 /CUMM) 8.5 RBC (4.70 - 6.10 /CUMM) 3.68 L Hgb (14.0 - 18.0 G/DL) 8.9 L Hct (42 - 52 %) 28.0 L MCV (80.0 - 94.0 FL) 76.2 L MCH (27.0 - 31.0 PG) 24.4 L MCHC (33.0 - 37.0 G/DL) 31.9 L RDW (11.5 - 14.5 %) 16.7 H Plt Count (130 - 400 /CUMM) 285 MPV (7.4 - 10.4 FL) 8.5 Gran % (42.2 - 75.2 %) 63.0 Lymphocytes % (20.5 - 51.1 %) 24.9 Monocytes % (1.7 - 9.3 %) 9.1 Eosinophils % (0 - 5 %) 2.6 Basophils % (0.0 - 2.0 %) 0.4 Absolute Granulocytes (1.4 - 6.5 /CUMM) 5.3 Absolute Lymphocytes (1.2 - 3.4 /CUMM) 2.1 Absolute Monocytes (0.10 - 0.60 /CUMM) 0.8 H Absolute Eosinophils (0.0 - 0.7 /CUMM) 0.2 Absolute Basophils (0.0 - 0.2 /CUMM) 0 Last 24 Hours of Alan Results: Microbiology Date/Time Procedure - Status Source Growth 01/18 1159 Urine Culture - CAN URINE ROUT Cancelled: NO SAMPLE COLLECTED 01/17 175 Blood Culture - RES BLOOD 01/17 06 Blood Culture - RES BLOOD 01/17 0014 Clostridium difficile Toxin A & B - COMP STOOL Assessment/Plan ID Impression: This patient is a 77-year-old male with diverticulitis of the proximal sigmoid colon with one blood culture positive for Clostridium tertium. Temperatures remain normal, on Ceftriaxone and Flagyl, Day 9 of treatment. Suggestion: 1. Further evaluation for urinary retention, with bladder scan monitoring, per Urology 2. Continue Ceftriaxone and Flagyl but can change to Ciprofloxacin and Flagyl upon discharge to complete a 14 day course of treatment
[2018-01-19 22:45] VITALS: BP 116/63
[2018-01-20 06:27] VITALS: BP 136/70
--- NOTE | 2018-01-20 08:48 | PN- Urology ---
Subjective Subjective: No distress Objective Vital Signs and I&Os Vital Signs Date Time Temp Pulse Resp B/P B/P Pulse O2 O2 Flow FiO2 Mean Ox Delivery Rate 01/20 627 98.0 86 20 136/70 98 Nasal 3.0L Cannula 01/20 0000 100 Nasal 3.0L Cannula 01/19 2245 98.1 83 20 116/63 100 01/19 1334 97.2 81 20 138/70 99 Nasal 3.0L Cannula 01/19 0903 99.4 95 24 130/70 Intake & Output 01/20 0000 01/19 1600 01/19 0801/19 0000 Intake Total 1060 1040 2071 785 2676 Output Total 200 1 Balance 860 1040 9834 985 8822 Intake, IV 700 800 800 800 800 Intake, Oral 360 240 240 120 240 Number 2 2 Bowel Movements Output, Stool 1 Output, Urine 200 Voiding spontaneously into diaper Abd: non tender. Bladder not palpble Genitalia: Normal male creatinine improved to 1.3 Laboratory Tests 01/20 01/20 0829 0745 Chemistry Sodium Pending Potassium Pending Chloride Pending Carbon Dioxide Pending Anion Gap Pending BUN Pending Creatinine Pending BUN/Creatinine Ratio Pending Hematology CBC w Diff Pending WBC Pending RBC Pending Hgb Pending Hct Pending MCV Pending MCH Pending MCHC Pending RDW Pending Plt Count Pending MPV Pending Assessment/Plan Assessment/Plan Imp: 1. chronic incomplete bladder emptying 2. 1 mm R UVJ stone Plan: 1. continue tamsulosin and finasteride 2. would check pvr by bladder scan
[2018-01-20 08:49] LABS: ABSOLUTE BASOPHIL COUNT 0 /CUMM (0.0-0.2); ABSOLUTE EOSINOPHIL COUNT 0.2 /CUMM (0.0-0.7); ABSOLUTE GRANULOCYTE CT 6.1 /CUMM (1.4-6.5); ABSOLUTE LYMPH COUNT 1.7 /CUMM (1.2-3.4); BASOPHIL % 0.3 % (0.0-2.0); EOSINOPHIL % 2.3 % (0-5); GRANULOCYTE % 67.9 % (42.2-75.2); HEMATOCRIT 30.8 % (42-52); MEAN CORPUSCULAR HGB 24.3 PG (27.0-31.0); MEAN CORPUSCULAR HGB CONC 31.7 G/DL (33.0-37.0); MEAN CORPUSCULAR VOLUME 76.6 FL (80.0-94.0); MEAN PLATELET VOLUME 8.5 FL (7.4-10.4); PLATELET COUNT 311 /CUMM (130-400); RBC DISTRIBUTION WIDTH 16.9 % (11.5-14.5); RED BLOOD CELL CT 4.02 /CUMM (4.70-6.10); WHITE BLOOD CELL COUNT 9.1 /CUMM (4.8-10.8)
--- NOTE | 2018-01-20 09:37 | PN- Housestaff ---
Booker Schmitz 01/20/18 0934: Subjective Follow-up For: Weakness, backache, Hx of fall. Tele-Events Since Last Visit: Patient seen on bed. Apparently he is looking well. He is not interested in any conversation. He answered every question by head movement. He denies by nodding head that there is nothing bothering him. He was watching television without any discomfort. Review of Systems Constitutional: Denies: weakness. Objective Last 24 Hrs of Vital Signs/I&O Vital Signs Date Time Temp Pulse Resp B/P B/P Pulse O2 O2 Flow FiO2 Mean Ox Delivery Rate 01/20 0627 98.0 86 20 136/70 98 Nasal 3.0L Cannula 01/20 0000 100 Nasal 3.0L Cannula 01/19 2245 98.1 83 20 116/63 100 01/19 1334 97.2 81 20 138/70 99 Nasal 3.0L Cannula Intake & Output 01/20 1600 01/20 0800 08 0000 Intake Total 1060 1040 Output Total 200 Balance 860 1040 Intake, IV 700 800 Intake, Oral 360 240 Number 2 Bowel Movements Output, Urine 200 Physical Exam General Appearance: Alert, Oriented X3, Cooperative Assessment/Plan Assessment: Assessment: 77-year-old man with past medical history of dementia, CAD status post CABG, hypertension, hyperlipidemia, PVD, aortic aneurysm, COPD on 2.0 L home O2, non- small cell lung cancer status post radiation, GERD, PUD, CAD, and nephrolithiasis seen for evaluation of fall, weakness, and back pain. Admitted for diverticulitis, JACQUELINE on CKD3. Patient is improved compared to yesterday. Problem List: - Transaminitis -Diverticulitis - Acute kidney injury; probably secondary to obstructive disease. 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 His blood cultures positive for coagulase- negative Staphylococcus, Clostridium tertium, gram-positive cocci in clusters. he he improved a lot. He is afebrile. -Stating his hold due to transaminitis. -Acute kidney injury is improving. His creatinine is trending down. Following nephrology consult advise. -For his respiratory failure he is on oxygen as needed -The patient is not interested in conversation. He responding to any question just by head movement. Overall he is looking improved. -Urology consult placed. He advises to continue tamsulosin and finasteride. According to urology advised bladder scan they have done it on bed side no urine retention. -DVT prophylaxis -Advance diet as tolerated -Full code - Problem List: 1. Diverticulitis 2. COPD (chronic obstructive pulmonary disease) 3. Diverticulitis 4. Leukocytosis 5. Transaminitis Pain Ratin Pain Location: backache Pain Goal: Remain pain free Pain Plan: Pain medication Tomorrow's Labs & Rationales: cbc [email or web address] 01/20/18 0940: Attending MD Review Statement Attending Statement Attending MD Statement: examined this patient, discuss w/resident/PA/THREAD REELER, agreed w/resident/PA/THREAD REELER, discussed with family, reviewed EMR data (avail), discussed with nursing, discussed with case mgmt, reviewed images, amended to note Attending Assessment/Plan: Patient non coperative. Patient leukocytosis has improved. Afebrile. He is continue on abx D10 as per ID recommendations. GI and urology with no acute intervention planned. Patient encouraged and reinforced about his poor PO intake and eating more. He is more awake, alert and even eats his food in presence of his daughter. His creatinine is improved now and JACQUELINE resolved. Follow ID and pysch recommendations. PT evalaution in presence of his daughter would help. Discharge planning based on above.
[2018-01-20 13:49] VITALS: BP 110/70
[2018-01-20 22:05] VITALS: BP 138/80
--- NOTE | 2018-01-21 07:17 | PN- Housestaff ---
Pascale Martínez 01/21/18 0716: Subjective Follow-up For: DIverticulitis, Transaminitis, JACQUELINE, ?Delirium Subjective: The patient was comfortably sleeping when I went to see him this morning. He was much more cooperative and he has been in the past few days. He states that he wants to go home, would "walk out" if he is not discharged. He says that he does not like the food here but would eat if he got a "hamburger with tomates". He is he has no other complaints. Denies chills, nausea, chest pain, diarrhea, vomiting. Review of Systems Constitutional: Reports: see HPI. Objective Last 24 Hrs of Vital Signs/I&O Vital Signs Date Time Temp Pulse Resp B/P B/P Pulse O2 O2 Flow FiO2 Mean Ox Delivery Rate 01/21 0910 80 120/80 01/21 0800 95 Nasal 3.0L Cannula 01/21 0718 97.4 86 18 134/76 100 Nasal 3.0L Cannula 01/21 0000 92 Nasal 3.0L Cannula 01/20 2205 98.0 100 20 138/80 95 08/05 1600 Nasal 3.0L Cannula / 1349 97.8 100 20 110/70 99 Nasal 3.0L Cannula Intake & Output 01/21 1600 /06 0800 08/06 0000 Intake Total 920 800 Output Total 150 800 Balance -150 920 0 Intake, IV 800 800 Intake, Oral 120 Number 3 Bowel Movements Output, Urine 150 800 Physical Exam General Appearance: Alert, Oriented X3, Cooperative, No Acute Distress Skin: No Rashes Neck: Supple Cardiovascular: Regular Rate, Normal S1, Normal S2 Lungs: Clear to Auscultation Abdomen: Soft, No Tenderness Assessment/Plan Assessment: 77-year-old man with past medical history of dementia, CAD status post CABG, hypertension, hyperlipidemia, PVD, aortic aneurysm, COPD on 2.0 L home O2, non- small cell lung cancer status post radiation, GERD, PUD, CAD, and nephrolithiasis seen for evaluation of fall, weakness, and back pain. Admitted for diverticulitis, JACQUELINE on CKD3. The patient was alert and responsive today. He was cooperative with the exmaination today. He says he wants to go home but refuses PT evaluation despite repeated attempts at counselling. He refuses to eat the hospital food and wants "hamburgers with tomatoes." The daughter was contacted who wants to take him home AMA. She thinks he would get better once he is home. We exlpained to her that the patient has been totally non-ambulatory siince admission and that he is a significant fall risk. She says she understands the risk involved and wants to take her home, nevertheless. Problem List 1. Resolved Sepsis 2. Diverticulitis 3. Transaminitis 4. Acute kidney injury; probably secondary to obstructive disease., (resolving) 5. 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 Chronic hypoxic respiratory failure 7. History of lung cancer. 1. Resolving Sepsis -On IV Rocephin 1g daily and Flagyl 500mg q8 day 11. -The patient is leaving AMA. We have prescribed Ciprofloxacin 500mg BID and Metronidazole 500mg TID to complete 14 day course of antibiotics per ID. -Blood Cultures positive for coag neg staph, clostridium tertium. Second set of cultures positive for gram-positive cocci in clusters -Patient is afebrile with a normal WBC -Supplemental O2 goal >92% 2. Diverticulitis -Patient leaving AMA on Ciprofloxacin 500mg BID and Metronidazole 500mg TID to complete 14 day course of antibiotics per ID. -F/u with GI outpatient 3.Transaminitis -Resolved. Resume the patient on statins 4.JACQUELINE - improving -Tan's discotinued for the patient per Uro recs -Finasteride 5 mg daily added per recs.. -Creatinine 1.2. On admission on 01/10 BUN/Cr was 89/4.0 5.Chronic Hypoxic Respiratory Failure -O2 as needed, TRC 6. ?Delirium -The patient is cooperative with the bedside examination -He is still refusing his food. Will go see him again to encourage him to eat. -He is at a big risk for falls but he is still refusing PT evaluation The patient is leaving AMA. We would have home health services on board, [facility]. We advanced the patient on a Regular diet. Problem List: 1. Diverticulitis 2. Transaminitis 3. Diverticulitis Pain Ratin Pain Location: na Pain Goal: Remain pain free Pain Plan: na Tomorrow's Labs & Rationales: Ismael Newton 01/21/18 1014: Attending MD Review Statement Attending Statement Attending MD Statement: examined this patient, discuss w/resident/PA/WELDING MACHINE OPERATOR RESISTANCE, agreed w/resident/PA/WELDING MACHINE OPERATOR RESISTANCE, discussed with family, reviewed EMR data (avail), discussed with nursing, discussed with case mgmt, reviewed images, amended to note Attending Assessment/Plan: Patient non coperative. His clinical condition has improved significantly. Switch him to PO abx and regular diet. GI and urology with no acute intervention planned. Patient encouraged and reinforced about his poor PO intake and eating more. Follow pysch recommendations. PT evalaution. He is reluctant to work with PT. OOB to chair. GI/DVT prophyalxis. Wants to go home. AMA with [facility]. Arrange family meeting.
[2018-01-21 07:18] VITALS: BP 134/76
[2018-01-21] MEDS ORDERED: FLAGYL500 MG PO ×2 (11:13→11:18)
[2018-01-21] MEDS ORDERED: FINASTERIDE5 M1 PO ×2 (11:13→11:18)
[2018-01-21] MEDS ORDERED: CIPROFLOXACIN500 M2 PO ×2 (11:13→11:18)
[2018-01-21] MEDS ORDERED: FLOMAX0.4 M1 PO ×2 (11:13→11:18)
--- NOTE | 2018-01-21 11:15 | PN- Infect Dx ---
Subjective Subjective: Afebrile without complaints. His p.o. intake was apparently improved this morning. A postvoid residual yesterday was 0 cc. Objective Last 24 Hrs of Vital Signs/I&O Vital Signs Date Time Temp Pulse Resp B/P B/P Pulse O2 O2 Flow FiO2 Mean Ox Delivery Rate 01/21 0910 80 120/80 01/21 0800 95 Nasal 3.0L Cannula 01/21 0718 97.4 86 18 134/76 100 Nasal 3.0L Cannula 01/21 0000 92 Nasal 3.0L Cannula 01/20 2205 98.0 100 20 138/80 95 01/20 1600 Nasal 3.0L Cannula 01/20 1349 97.8 100 20 110/70 99 Nasal 3.0L Cannula Intake & Output 01/21 1600 01/21 0000 Intake Total 920 800 Output Total 150 800 Balance -150 920 0 Intake, IV 800 800 Intake, Oral 120 Number 3 Bowel Movements Output, Urine 150 800 Physical Exam Other Physical Findings: He is more awake and communicative, in no acute distress Lungs are clear Heart regular rhythm with no murmur Abdomen is soft, nontender with positive bowel sounds Extremities 1+ edema both lower extremities Results Last 24 Hours of Lab Results: Laboratory Tests 01/21 600 Chemistry Sodium (137 - 145 mmol/L) 137 Potassium (3.5 - 5.1 mmol/L) 5.3 H Chloride (98 - 107 mmol/L) 107 Carbon Dioxide (22 - 30 mmol/L) 25 Anion Gap (5 - 16) 5 BUN (9 - 20 mg/dL) 13 Creatinine (0.7 - 1.2 mg/dL) 1.1 Estimated GFR (>60 ml/min) > 60 BUN/Creatinine Ratio (7 - 25 %) 11.8 Last 24 Hours of Alan Results: Blood cultures January 17 negative Assessment/Plan ID Impression: Stable, with temperatures and white blood cell remaining normal, on Ceftriaxone and Flagyl, Day 11 of treatment for diverticulitis of the proximal sigmoid colon , with one blood culture positive for Clostridium tertium. Suggestion: 1. Continue Ceftriaxone and Flagyl until discharge, at which point he can be changed to Ciprofloxacin 500 mg p.o. every 12 hours and Flagyl 500 mg p.o. every 8 hours to complete a 14 day course of antibiotics
[2018-01-21 14:01] VITALS: BP 140/90
--- NOTE | 2018-01-21 15:06 | PN- Urology ---
Subjective Subjective: Resting comfortably Objective Vital Signs and I&Os Vital Signs Date Time Temp Pulse Resp B/P B/P Pulse O2 O2 Flow FiO2 Mean Ox Delivery Rate 01/21 1410 22 94 Room Air 01/21 1410 22 99 Nasal 3.0L Cannula 01/21 1401 97.7 95 20 140/90 99 Nasal 3.0L Cannula 01/21 0910 80 120/80 01/21 0800 95 Nasal 3.0L Cannula 01/21 0718 97.4 86 18 134/76 100 Nasal 3.0L Cannula 01/21 0000 92 Nasal 3.0L Cannula 01/20 2205 98.0 100 20 138/80 95 01/20 1600 Nasal 3.0L Cannula Intake & Output 01/21 1600 01/21 0800 01/21 0000 01/20 1600 01/20 0801/20 0000 Intake Total 1100 920 613 053 6260 1040 Output Total 550 800 325 200 Balance 550 920 0 077 975 8950 Intake, IV 400 800 800 600 700 800 Intake, Oral 700 120 360 360 240 Number 0 3 1 2 Bowel Movements Output, Urine 550 800 325 200 Voiding spontaneously. PVR by bladder scan is zero Creatinine continues to improve and is now down to 1.1 Assessment/Plan Assessment/Plan Imp: 1. BPH with hx of incomplete bladder emptying, now resolved 2. 1 mm R UVJ stone, asymptomatice Plan: 1. No urologic intervention planned
[2018-01-21 21:46] VITALS: BP 124/82
[2018-01-22 06:20] VITALS: BP 130/78
--- NOTE | 2018-01-22 07:10 | PN- Housestaff ---
Pascale Martínez 01/22/18 0710: Subjective Follow-up For: diverticulitis, transaminitis and JACQUELINE Subjective: Patient is seen and examined at bedside. He was sleeping comfortably but was cooperative with the examination. Per the nurse he the food brought in by his family last night. and I had extensive discusion with the family yesterday. The daughters wanted to take the patient home AMA. We explained to them that the patient has been completely non-ambulatory since admission and could be deconditioned, hence posing a significant fall risk. She consented to come to the hospital in the am today to work with the PT to assess the patient's ambulatory status and decide on a discharge course thereafter. Review of Systems Constitutional: Reports: see HPI. Objective Last 24 Hrs of Vital Signs/I&O Vital Signs Date Time Temp Pulse Resp B/P B/P Pulse O2 O2 Flow FiO2 Mean Ox Delivery Rate 01/22 0620 98.4 92 18 130/78 95 Room Air 01/21 2200 98.7 01/21 2146 99.4 99 18 124/82 94 Room Air 01/21 1600 Room Air 01/21 1410 22 94 Room Air 01/21 1410 22 99 Nasal 3.0L Cannula 01/21 1401 97.7 95 20 140/90 99 Nasal 3.0L Cannula 01/21 0910 80 120/80 Intake & Output 01/22 1600 01/22 0800 01/22 0000 Intake Total 625 675 Output Total 800 Balance 625 -125 Intake, IV 625 75 Intake, Oral 600 Number 0 2 Bowel Movements Output, Urine 800 Physical Exam General Appearance: Oriented X3, Cooperative, No Acute Distress Skin: No Rashes, No Breakdown Neck: Supple Cardiovascular: Regular Rate, Normal S1, Normal S2 Lungs: Clear to Auscultation Assessment/Plan Assessment: 77-year-old man with past medical history of dementia, CAD status post CABG, hypertension, hyperlipidemia, PVD, aortic aneurysm, COPD on 2.0 L home O2, non- small cell lung cancer status post radiation, GERD, PUD, CAD, and nephrolithiasis seen for evaluation of fall, weakness, and back pain. Admitted for diverticulitis, JACQUELINE on CKD3. The patient was sleeping but co-operative with examination today. After extensive discussion with the family yesterday, the daughter consented to come in the am today and work with PT to evaluate the patient's ambulatory level and then decide on the discharge course. The patient has been eating well. Per the nurse, the patient had food brought in by the family for dinner last night.. Problem List 1. Resolved Sepsis 2. Diverticulitis 3. Transaminitis 4. Acute kidney injury; probably secondary to obstructive disease., (resolving) 5. 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 Chronic hypoxic respiratory failure 7. History of lung cancer. 1. Resolving Sepsis -On IV Rocephin 1g daily and Flagyl 500mg q8 day 12. - We would change the antibiotics toCiprofloxacin 500mg BID and Metronidazole 500mg TID to complete 14 day course of antibiotics per ID. -Blood Cultures positive for coag neg staph, clostridium tertium. Second set of cultures positive for gram-positive cocci in clusters -Patient is afebrile with a normal WBC -The patient is off Oxygen and is saturating well on room air. 2. Diverticulitis -We would discharge the patient on Ciprofloxacin 500mg BID and Metronidazole 500mg TID to complete 14 day course of antibiotics per ID. -F/u with GI outpatient 3.Transaminitis -Resolved. Resume the patient on statins 4.JACQUELINE - improving -Tan's discotinued for the patient per Uro recs -Finasteride 5 mg daily added per recs.. -Creatinine 1.2. On admission on 01/10 BUN/Cr was 89/4.0 5.Chronic Hypoxic Respiratory Failure -O2 as needed, TRC 6. ?Delirium -The patient is cooperative with the bedside examination -He is eating well now. -He is a significant falls risk and would have a PT evaluation in the morning today DVT ppx iv access Full Code Regualr diet Problem List: 1. Transaminitis 2. Leukocytosis 3. Diverticulitis 4. JACQUELINE (acute kidney injury) Pain Ratin Pain Location: na Pain Goal: Remain pain free Pain Plan: na Tomorrow's Labs & Rationales: Ismael Newton 01/22/18 1001: Attending Review Statement Attending Statement Attending MD Statement: examined this patient, discuss w/resident/PA/OPERATIONS MANAGER ASSISTANT, agreed w/resident/PA/OPERATIONS MANAGER ASSISTANT, discussed with family, reviewed EMR data (avail), discussed with nursing, discussed with case mgmt, reviewed images, amended to note Attending Assessment/Plan: Patient seen/examined bedside. Daughter bedside this am and he is tolerating regular diet. Encouraged to work with PT for general physcial deconditioning. Patient with clinical improvement and can be switched to PO abx as per ID recommendations. Follow up with GI in 4 weeks. Follow up with urology in 2-3 weeks. Follow up with PCP in 1-2 weeks. Case management on board.
--- NOTE | 2018-01-22 10:25 | PN- Infect Dx ---
Subjective Subjective: Afebrile. He is nonverbal this morning and does not respond to any questions. He refused to work with physical therapy this morning. He apparently did eat well this morning. Objective Last 24 Hrs of Vital Signs/I&O Vital Signs Date Time Temp Pulse Resp B/P B/P Pulse O2 O2 Flow FiO2 Mean Ox Delivery Rate 01/23 620 98.4 92 18 130/78 95 Room Air 01/21 2200 98.7 01/21 2146 99.4 99 18 124/82 94 Room Air 01/21 1600 Room Air 01/21 1410 22 94 Room Air 01/21 1410 22 99 Nasal 3.0L Cannula 01/21 1401 97.7 95 20 140/90 99 Nasal 3.0L Cannula Intake & Output 01/22 1600 01/22 0800 01/22 0000 Intake Total 625 675 Output Total 800 Balance 625 -125 Intake, IV 625 75 Intake, Oral 600 Number 0 2 Bowel Movements Output, Urine 800 Physical Exam Other Physical Findings: He is awake and alert, appearing comfortable and in no acute distress Lungs are clear Abdomen is soft, nontender with positive bowel sounds Extremities 1+ edema both lower extremities Results Last 24 Hours of Lab Results: No labs from today Last 24 Hours of Alan Results: Blood cultures January 17 remain negative Assessment/Plan ID Impression: Overall stable, with temperatures and white blood cell remaining normal, on Ceftriaxone and Flagyl, Day 12 of treatment for diverticulitis of the proximal sigmoid colon, with one blood culture positive for Clostridium tertium. Suggestion: 1. Continue Ceftriaxone and Flagyl until discharge, at which point he can be changed to Ciprofloxacin 500 mg p.o. every 12 hours and Flagyl 500 mg p.o. every 8 hours to complete a 14 day course of antibiotics
--- NOTE | 2018-01-22 12:49 | Discharge Summary ---
Visit Information Visit Dates Admission Date: 01/10/18 Discharge Date: 01/22/18 Hospital Course Course Attending Physician: Ismael Monson MD Primary Care Physician: Levar Ferguson MD Hospital Course: 69-year-old male with multiple comorbidities who was brought to the ER for evaluation due to complaints of worsening lethargy for his daughter. On admission he was febrile to 100.1, with a blood pressure of 99/54. His Physical Exam was benign. Laboratory data revealed a white blood cell count of 16.5, BUN/creatinine 89 and 4.0, alkaline phosphatase 129, AST/ALT [address] abdomen done during this admission showed focal diverticulitis of the proximal sigmoid colon. Moderate hydronephrosis of the right kidney. Several renal or ureteral calculi. Extensive calcifications. He was started on ceftriaxone and metronidazole and admitted to General medicine floor for acute diverticulitis. The following issues were addressed during hospital stay: #Acute Diverticulitis with no complication of perforation, or abscess. He was managed on ceftriaxone and metronidazole. His one blood culture was positive for Clostridium tertium. The other set was positive for probable coag negative Staph, which was presumed to represents a contaminant per infectious disease team. His leukocytosis improved with normalization during subsequent days. He remained afebrile throughout hospital stay. On discharge day, he was given an Rx for cipro and metronidazole to complete a 14 day ABX course. # JACQUELINE with a creatinine of 4.0 on admission Secondary to obstruction from BPH and renal stone. Relieved and improved after Ayala insertion with bladder decompression (700ml urine output on intial ayala placement). Also started on Flomax per urology reccomendation. On discharge day, pt creatinine was 1.0 and was voiding without need for ayala. #Moderate hydronephrosis of right kidney. Multiple renal and ureteral calculi with a 1 mm stone at the right bladder trigone at the right UVJ. Urology was consulted. Pt was maanged by bladder decompression through ayala. No urological intervention for the 1mm stone was warranted, and plan was to await for passage. #Transaminitis Thought to be secondary to infection vs reactive. Trended down and normalized during hospital stay. #Acute Delirium with agitation Patient was noted to be agitated intermittently during hospital stay. He does have baseline dementia. Psych consultation was obtained and pt was started on Risperdal and subsequertly after a few days, pt status improved with complete resolution of delirium and agitation. On discharge date, he was stable and in no acute agitation or delirium. #Discharge Disposition: When patient was medically stable, a PT evaluation was requested since he had not ambulated since admission. Patient repeatedly refused to participate in PT sessions. He was discharged to [facility]. Prior to ambulation, pt will need to be evaluated by Physical therapy at the SNF. Allergies: Coded Allergies: lisinopril (Severe, LIP/TONGUE SWELLING 02/18/16) Significant Procedures: SERVICE DATE: 01/10/18 EXAM TYPE: CAT - CT ABD & PELVIS W/O IV CONTRAS; CT CHEST WO IV CONTRAST Addendum: Review of the CAT scan study does show a ovoid mass at the base of the bladder measuring approximately 1.5 cm. Axial image 112 (2). This is new since prior CT scan abdomen pelvis 09/05/2014. Addendum Signed by: Bernard Gonzalez MD 01/11/182052 EXAMINATION: CT CHEST, ABDOMEN AND PELVIS WITH CONTRAST CLINICAL INFORMATION: Fall. Pain. COMPARISON: Portable chest 09/01/2016. CT abdomen pelvis 09/05/2014. PET/CT exam 06/06/2011 TECHNIQUE: Multidetector volumetric CT imaging of the chest, abdomen and pelvis was obtained without oral or intravenous contrast. Coronal and sagittal reformatted images are performed at CT scanner DLP: 863.87 mGy-cm. FINDINGS: CT CHEST: LUNGS: There is stable chronic volume loss in the right upper lobe with bronchiectasis and elevation of the right hilum. This is similar to the prior exam of 06/06/2011. MEDIASTINUM: Status post median sternotomy. There is vascular calcifications of the aorta. There is vascular calcification of coronary arteries. No mediastinal mass. No bulky lymphadenopathy. There is no pericardial effusion. PLEURA: There is no pleural effusion. No pleural mass or thickening. AXILLA: No lymphadenopathy. CT ABDOMEN AND PELVIS: LIVER, GALLBLADDER, AND BILIARY TREE: The liver is normal in size, shape, and attenuation. No focal hepatic lesion or biliary ductal dilatation is present. The gallbladder is unremarkable with no evidence of radiopaque gallstones, gallbladder wall thickening, or obvious pericholecystic inflammatory changes. PANCREAS: No acute change of the pancreas. No mass. No pancreatic duct dilatation. SPLEEN: Spleen normal in size and contour. No focal lesion. ADRENAL GLANDS: Adrenal glands are normal in size. No focal mass. KIDNEYS AND URETERS: There is moderate hydronephrosis of right kidney with distention of renal pelvis and calyces. There are multiple tiny stones layering dependently in the renal pelvis in the midpole and lower pole calyces. There are a couple tiny stones also in the proximal dilated right ureter. There is a 1 mm stone at the right bladder trigone, axial image 113 (2). The left kidney and ureter are normal. There is a pedunculated cyst at the upper pole of the right kidney measuring 5.6 cm. BLADDER: Unremarkable. GASTROINTESTINAL TRACT: There is marked diverticulosis of the left colon sigmoid with scattered diverticula in the right colon. There is focal bowel wall thickening and subtle pericolonic edema at the proximal sigmoid consistent with focal diverticulitis. Moderate amount of stool throughout the colon. The appendix is normal. The small bowel loops are normal. MESENTERY: Edema related to the diverticulitis in the mesentery in the left lower quadrant. There is no free air. ABDOMINAL WALL: No significant hernia is appreciated. LYMPH NODES: Normal. VASCULAR: There is atherosclerotic vascular wall calcifications of the aorta and iliac arteries. There is subtle aneurysmal dilatation of the distal aorta proximal to the bifurcation measuring 2.7 cm transverse. There is vascular calcification at the origin of the celiac axis, SMA and renal arteries. PELVIC VISCERA: Prostate measures 5 cm transverse. OSSEOUS STRUCTURES: No acute abnormality. No fracture. There is bony fusion of ossification of the disc at L4-L5. There is multilevel endplate degenerative spurs of the thoracic and lumbar vertebrae. There are multiple gas deposits that are scattered in the lumbar canal at the lower lumbar spine from L3 L4-L5 S1. There are gas droplets also in the paravertebral soft tissues at these disc levels. This is likely due to the degenerative change of the disc at L5-S1. Status post median sternotomy. There is subchondral sclerosis and cystic changes of the right and left femoral heads consistent with avascular necrosis. The femoral head remains spherical without fracture. IMPRESSION: 1. Moderate hydronephrosis of right kidney. Multiple renal and ureteral calculi. There is a 1 mm stone at the right bladder trigone at the right UVJ. 2. Diverticulosis of the colon. Focal diverticulitis of the proximal sigmoid colon. 3. No acute change of chest. Stable chronic volume loss and bronchiectasis at the right upper lobe. 4. Extensive atherosclerotic vascular calcifications. There is a subtle aneurysmal dilatation of the distal aorta at the bifurcation measuring 2.7 cm. 5. 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 Disposition Summary Disposition Principal Diagnosis: Acute diverticulitis Additional Diagnosis: JACQUELINE Nephrolithiasis Hydronephrosis Acute delirium with agitation Discharge Disposition: SNF Discharge Instructions General Discharge Information Code Status: Full Code Patient's Diet: regular Patient's Activity: As tolerated Follow-Up Instructions/Appts: * Please f/u with PCP within 1 week * Please f/u with Urology within 1-2 weeks (Dr Ghosh) * Patient will need GI follow up to assess need for endoscopy after his diverticulitis episode. * PCP to f/u on the CT finding of stable aneurysm (distal aorta at the bifurcation measuring 2.7cm) and avascular femoral necrosis (Please see CT findings). Medications at Discharge Discharge Medications: Continue taking these medications: Acetaminophen (Tylenol Extra Strength) 500 MG TABLET 1 Tablet ORAL TWICE DAILY Comments: NOT GIVEN WHILE IN HOSPITAL Aspirin (Children's Aspirin) 81 MG TAB.CHEW 1 Tablet ORAL DAILY Comments: NOT GIVEN IN HOSPITAL Fluoxetine HCl (Prozac) 10 MG CAPSULE 1 Capsule ORAL Every Morning Comments: Last Taken: 01/20/18 Time: 2200PM Rosuvastatin Calcium (Crestor) 40 MG TABLET 1 Tablet ORAL DAILY Comments: Last Taken: 09/03/16 Time: 6:30PM LIPITOR GIVEN SUBSTITUTION Docusate Sodium (Colace) 100 MG CAPSULE 1 Capsule ORAL DAILY Comments: Last Taken: 09/04/16 Time: 11AM Memantine HCl (Namenda XR) 21 MG CAP.SPR.24 1 Tablet ORAL DAILY Qty = 30 Comments: NOT GIVEN IN HOSPITAL Trazodone HCl (Trazodone HCl) 50 MG TABLET 1 Tablet ORAL THREE TIMES DAILY as needed for agitation Comments: NOT GIVEN IN HOSPITAL Folic Acid (Folic Acid) 0.4 MG TABLET 1 Tablet ORAL DAILY Comments: NOT GIVEN IN HOSPITAL Cyanocobalamin (Vitamin B-12) (B-12 Dots) 500 MCG TABLET 1 Tablet ORAL DAILY Comments: NOT GIVEN IN HOSPITAL Cholecalciferol (Vitamin D3) (Vitamin D) 2,000 UNIT CAPSULE 1 Capsule ORAL DAILY Comments: NOT GIVEN IN HOSPITAL Start taking the following new medications: Metronidazole (Flagyl) 500 MG TABLET 500 Tablet ORAL THREE TIMES DAILY Qty = 9 No Refills Instructions: . Comments: FLAGYL IV GIVEN 01/22/18 @ 0818AM Ciprofloxacin HCl (Ciprofloxacin HCl) 500 MG TABLET 500 Tablet ORAL TWICE DAILY Qty = 6 No Refills Instructions: . Comments: NOT GIVEN IN HOSPITAL Tamsulosin HCl (Flomax) 0.4 MG CAP.ER.24H 0.4 Milligram ORAL DAILY Qty = 30 No Refills Instructions: . Comments: Last Taken: 01/22/18 Time: 1008AM Finasteride (Finasteride) 5 MG TABLET 5 Milligram ORAL DAILY Qty = 30 No Refills Instructions: . Comments: Last Taken: 01/22/18 Time: 1006AM Copies To: Marty HOWELL,Levar Tubbs
[2018-01-22 14:00] VITALS: BP 140/80
[2018-01-22 14:36] VITALS: BP 140/80
== END 2018-01-22 15:26 | DRG 871 ==
LOC: ERH 16:04 → 2NA 20:00 → ERHI 20:00 → CANRESERV 01-11 11:15 → ENRESERV 01-11 11:15 → ENTRNSPT 01-11 13:19 → EDTRNSPTSTS 01-11 13:25 → 2NA 01-11 13:30 → CMPTRNSPT 01-11 14:12 → 2NA 01-16 19:23
PROVIDERS: General Practice; Hospitalist; Internal Medicine Interventional Cardiology; Physical Medicine & Rehabilitation; Physician Assistant Medical; Student in an Organized Health Care Education/Training Program
DX: A41.89 Other specified sepsis (principal); G92 Toxic encephalopathy; N17.9 Acute kidney failure, unspecified; J96.11 Chronic respiratory failure with hypoxia; K57.32 Diverticulitis of large intestine without perforation or abscess without bleeding; N13.2 Hydronephrosis with renal and ureteral calculous obstruction; M87.9 Osteonecrosis, unspecified; F03.91 Unspecified dementia, unspecified severity, with behavioral disturbance; E87.0 Hyperosmolality and hypernatremia; F05 Delirium due to known physiological condition; I95.9 Hypotension, unspecified; E78.5 Hyperlipidemia, unspecified; W19.XXXA Unspecified fall, initial encounter; Z91.81 History of falling; Z85.118 Personal history of other malignant neoplasm of bronchus and lung; I73.9 Peripheral vascular disease, unspecified; J44.9 Chronic obstructive pulmonary disease, unspecified; Z99.81 Dependence on supplemental oxygen; D50.9 Iron deficiency anemia, unspecified; I25.10 Atherosclerotic heart disease of native coronary artery without angina pectoris; I12.9 Hypertensive chronic kidney disease with stage 1 through stage 4 chronic kidney disease, or unspecified chronic kidney disease; Z95.1 Presence of aortocoronary bypass graft; R74.0 Nonspecific elevation of levels of transaminase and lactic acid dehydrogenase [LDH]; Z87.442 Personal history of urinary calculi; M89.752 Major osseous defect, left pelvic region and thigh; M89.751 Major osseous defect, right pelvic region and thigh; K21.9 Gastro-esophageal reflux disease without esophagitis; E86.0 Dehydration; N18.3 Chronic kidney disease, stage 3 (moderate); N32.89 Other specified disorders of bladder; E87.6 Hypokalemia; R33.8 Other retention of urine
CPT/HCPCS: 2NAP; 2NASP; ERO; 36415; 36592; 74176; 81001; 82436; 87015; 87040; 87045; 87086; 87147; 87899; 87899-59; 93005; 93010; 96365; J0131; J0696; J0744; J1630; J1644; J7042; J7060